=== PATIENT | male | born 1935 | race Caucasian/White ===

== ENCOUNTER 2016-04-10 13:45 | Inpatient (IN) | payer MEDICARE ==
[2016-04-10] VITALS (14 sets, daily range): BP systolic 133–149; BP diastolic 63–98; PULSE 60–128; RESP 12–16; TEMP 92.4–98.9; O2SAT 98–100
[~2016-04-10] VITALS: Ht 177.8 cm; Wt 180.0 kg
[~2016-04-10 13:45] MED LIST: ENAL5TAB PO; FURO20TA PO; SIMV40TA PO; TIMO0.5S29 EACH EYE; VITA200017 PO; WARF5TAB PO; WARF7.5T4 PO; [UNRECOGNIZED DRUG - CODE] PO
[2016-04-10] MEDS ORDERED: SUCCINYLCHOLINE CHLORIDE 200 MG/10 ML VIAL ONE (13:54)
[2016-04-10] MEDS ORDERED: ETOMIDATE 20 MG/10 ML VIAL ONE (13:54)
[2016-04-10] MEDS ORDERED: WARF4TAB52 PO (14:02)
[2016-04-10] MEDS ORDERED: SODIUM CHLOR 0.9% 1000 ML INJ 1,000 ML IV ONE ×3 (14:05→16:30)
[2016-04-10] MEDS ORDERED: ETOMIDATE 20 MG/10 ML VIAL IVP ONE (14:15)
[2016-04-10] MEDS ORDERED: SUCCINYLCHOLINE CHLORIDE 200 MG/10 ML VIAL IVP ONE (14:15)
[2016-04-10] MEDS ORDERED: SODIUM CHLORIDE 0.9% FLUSH 5 ML FLUSH IVF PRN ×2 (14:15→14:30)
[2016-04-10] MEDS ORDERED: SODIUM PHOSPHATE INJ 30 MMOL in SODIUM CHLOR 0.9% 250 ML INJ 240 ML IV PRN (14:30)
[2016-04-10] MEDS ORDERED: POTASSIUM PHOSPHATE MONOBASIC 500 MG TAB PO/TUBE PRN (14:30)
[2016-04-10] MEDS ORDERED: POTASSIUM PHOSPHATE MONOBASIC 500 MG TAB PO PRN (14:30)
[2016-04-10] MEDS ORDERED: POTASSIUM CHLOR 40 MEQ PREMIX 100 ML IV PRN ×2 (14:30)
[2016-04-10] MEDS ORDERED: RESP: ALBUTEROL 2.5 MG/IPRATROPIUM 0.5 MG NEB (PRN) INH (14:30)
[2016-04-10] MEDS ORDERED: MISCELLANEOUS NURSING INFORMATION XX SCH (14:30)
[2016-04-10] MEDS ORDERED: MAGNESIUM SULFATE INJ 4 GM in SODIUM CHLORIDE 0.9% INJ 92 ML IV PRN (14:30)
[2016-04-10] MEDS ORDERED: POTASSIUM CL 40 MEQ/30 ML LIQ UDC PO/TUBE PRN ×2 (14:30)
[2016-04-10] MEDS ORDERED: MAGNESIUM OXIDE 400 MG TAB PO PRN (14:30)
[2016-04-10] MEDS ORDERED: MAGNESIUM SULFATE INJ 2 GM in SODIUM CHLORIDE 0.9% INJ 96 ML IV PRN (14:30)
[2016-04-10] MEDS ORDERED: POTASSIUM CHLOR 20 MEQ PREMIX 100 ML IV PRN (14:30)
[2016-04-10] MEDS ORDERED: CHLORHEXIDINE GLUCONATE 2 % 1 PACK (2 CLOTHS) TOP PRN (14:30)
--- NOTE | 2016-04-10 14:34 | PD ---
HPI Chief Complaint: Code Blue Time Seen by Provider: 14:05 Travel History International Travel<30 days: No (UNABLE TO OBTAIN) Contact w/Intl Traveler<30days: No (UNABLE TO OBTAIN) Traveled to known affect area: No (UNABLE TO OBTAIN) History of Present Illness HPI 80-year-old male presents to the ER brought in by EMS status post CODE BLUE, STEMI alert called on the patient on scene. Patient has had history of cardiac issues, was eating at [employer] when he collapsed, found to be initially in V. fib, was deferred bladed on scene, and had a PEA, had 2 rounds of epi and CPR, regained pulses, and EKG showed what appeared to be ST elevations in V1 through V3. Patient was intubated with LMA on scene. Brought into intubated. On initial evaluation by me with with repeat EKG, when compared to a previous EKG on file, this does not appear to be a true ST elevation LA. Case was discussed with Dr. capellan who agreed to come see the patient and he states that the patient does not appear to have ST elevation qualification criteria. Modifying Factors: None Associated Signs & Symptoms: Coded blue, STEMI alert called on scene Risk Factors: Elderly, cardiac history PFSH Past Medical History Hx Anticoagulant Therapy: Yes (COUMADIN) Asthma: Yes Heart Rhythm Problems: Yes (IRREG HEARTBEAT/ AFIB) Cancer: No Cardiovascular Problems: Yes (A-FIB, HYPERCHOLESTEROLEMIA ) High Cholesterol: Yes Chest Pain: Yes Coronary Artery Disease: Yes Diabetes: No Diminished Hearing: No Endocrine: No Genitourinary: Yes (BPH IN 20 YRS AGO) Hepatitis: No Hiatal Hernia: No Hypertension: Yes Immune Disorder: No Musculoskeletal: Yes (ARTHRITIS) Neurologic: No Psychiatric: No Reproductive: No Respiratory: Yes (SHORTNESS OF BREATH WITH MUCH WALKING, SLEEP APNEA-USES CPAP AT NIGHT) Migraines: Yes Thyroid Disease: No Tetanus Vaccination: Unknown Influenza Vaccination: Yes (UNKNOWN IF MORE CURRENT ) PNEUMOCCOCAL Vaccine (Year): 1 Past Surgical History AICD: No Body Medical Devices: CARDIAC STENTS X 3 Cardiac Surgery: Yes ( CARDIAC STENTS 2008, CARDIAC ABLATION 11/2012) Joint Replacement: No Pacemaker: No Other Surgery: Yes Social History Alcohol Use: No (UNABLE TO ASSESS) Tobacco Use: No (UNABLE TO ASSESS) Substance Use: No (UNABLE TO ASSESS) Allergies-Medications (Allergen,Severity, Reaction): Coded Allergies: No Known Allergies (Verified , 04/10/16) Reported Meds & Prescriptions Reported Meds & Active Scripts Active Reported Warfarin 1 Mg Tab Unknown Dose PO DAILY Review of Systems Except as stated in HPI: all other systems reviewed are Neg Physical Exam Narrative GENERAL: Well-nourished, well-developed elderly white male patient who is intubated, [id number] in progress, obtunded. SKIN: Warm and dry. HEAD: Normocephalic. EYES: No scleral icterus. No injection or drainage. NECK: trachea midline. CARDIOVASCULAR: Regular rate and rhythm without murmurs, gallops, or rubs. RESPIRATORY: Breath sounds equal bilaterally. No accessory muscle use. GASTROINTESTINAL: Abdomen soft, nondistended. MUSCULOSKELETAL: No cyanosis, or edema. EXTREMITIES: No clubbing, cyanosis. Bilateral pitting edema the legs. Data Data Last Documented VS Vital Signs Date Time Temp Pulse Resp B/P Pulse Ox O2 Delivery O2 Flow Rate FiO2 04/10/16 14:15 106 16 140/63 98 Ventilator 100 04/10/16 14:00 15 04/10/16 13:45 98.9 Orders Etomidate Inj (Amidate Inj) (04/10/16 13:54) Succinylcholine Inj (Quelicin Inj) (04/10/16 13:54) Troponin I (04/10/16 14:05) Ckmb (Isoenzyme) Profile (04/10/16 14:05) Complete Blood Count With Diff (04/10/16 14:05) I-Stat Profile (04/10/16 14:05) I-Stat Creatinine (04/10/16 14:05) Calcium (04/10/16 14:05) Magnesium (Mg) (04/10/16 14:05) Prothrombin Time / Inr (Pt) (04/10/16 14:05) Act Partial Throm Time (Ptt) (04/10/16 14:05) B-Type Natriuretic Peptide (04/10/16 14:05) Chest, Single Ap (04/10/16 14:05) Electrocardiogram (04/10/16 14:05) Oxygen Administration (04/10/16 14:05) Iv Access Insert/Monitor (04/10/16 14:05) Oximetry (04/10/16 14:05) Sodium Chlor 0.9% 1000 Ml Inj (Ns 1000 M (04/10/16 14:05) Sodium Chloride 0.9% Flush (Ns Flush) (04/10/16 14:15) Arterial Blood Gas (Abg) (04/10/16 14:05) Etomidate Inj (Amidate Inj) (04/10/16 14:15) Succinylcholine Inj (Quelicin Inj) (04/10/16 14:15) Ct Brain W/O Iv Contrast(Rout) (04/10/16 ) Drug Screen, Random Urine (04/10/16 14:22) Admit Order (Ed Use Only) (04/10/16 14:22) Consult Cardiology (04/10/16 ) MDM Medical Decision Making Medical Screen Exam Complete: Yes Emergency Medical Condition: Yes Medical Record Reviewed: Yes Differential Diagnosis Status post CODE BLUE/STEMI alert called on scene Narrative Course Case was discussed with Dr. Cabrera of critical care who accepts the patient for admission. I have intubated the patient with ET tube without issues. Aggregate critical care time was 35 minutes. Time to perform other separately billable procedures was not included in the critical care time. My time did not include minutes spent treating any other patients simultaneously or on activities that did not directly contribute to the patient's treatment. The services I provided to this patient were to treat and/or prevent clinically significant deterioration that could result in: Respiratory arrest, cardiopulmonary arrest, I provided critical care services requiring my management, as noted below: Chart data review, documentation time, medication orders and management, vital sign assessments/reviewing monitor data, ordering and reviewing lab tests, ordering and interpreting/reviewing x-rays and diagnostic studies, care of the patient and discussion of the patient with the admitting physicians. Procedures Procedure Narrative the following procedure was performed for airway protection: INTUBATION: The patient was put in optimal position for the procedure. Rapid sequence intubation was initiated by me using 20 milligrams of etomidate IV and 100 milligrams of succinycholine IV. The patient was intubated with a 7.5 cuffed endotracheal tube. Tube placement was confirmed by visualization of the tube and balloon passing through the cords, capnometry and subsequent chest x- ray. Breath sounds were equal and well aerated bilaterally postintubation. No breath sounds over stomach. Patient tolerated procedure well. EKG Prior to Arrival: Yes Diagnosis Primary Impression: CARDIAC ARREST, CAUSE UNSPECIFIED Additional Impression: Endotracheally intubated Admitting Information Admitting Physician Requests: Admit Cynthia Alegre MD Apr 10, 2016 14:34
[2016-04-10 14:40] LABS: AUTOMATED NEUTROPHIL # 6.5 TH/MM3 (1.8-7.7); BASOPHIL # 0.1 TH/MM3 (0-0.2); BASOPHIL % 1.4 % (0.0-2.0); EOSINOPHIL # 0.2 TH/MM3 (0-0.4); EOSINOPHIL % 1.4 % (0.0-4.0); HEMATOCRIT 52.1 % (39.0-51.0); HEMO FLAGS DIFF FINAL; LYMPH % 23.7 % (9.0-44.0); LYMPHOCYTE # 2.5 TH/MM3 (1.0-4.8); MEAN CELL VOLUME 88.2 FL (80.0-100.0); MEAN CORPUSCULAR HEMOGLOBIN 30.5 PG (27.0-34.0); MEAN CORPUSCULAR HGB CONC 34.6 % (32.0-36.0); MONO % 11.9 % (0.0-8.0); NEUT % 61.6 % (16.0-70.0); PLATELET COUNT 303 TH/MM3 (150-450); RED BLOOD COUNT 5.91 MIL/MM3 (4.50-5.90); RED CELL DISTRIBUTION WIDTH 13.9 % (11.6-17.2); WHITE BLOOD COUNT 10.6 TH/MM3 (4.0-11.0)
[2016-04-10 14:48] LABS: APTT (PATIENT) 38.1 SEC (24.3-30.1); INTERNATIONAL NORMALIZED RATIO 2.5 RATIO; PROTHROMBIN TIME - PATIENT 28.3 SEC (9.8-11.6)
[2016-04-10] MEDS ORDERED: PROPOFOL 1000 MG/100 ML INJ 100 ML ONE (15:01)
[2016-04-10 15:04] LABS: BLOOD GAS BASE EXCESS -2.3 mmol/L (-2-2); BLOOD GAS CARBOXYHEMOGLOBIN 1.7 % (0-4); BLOOD GAS HCO3 23 mmol/L (22-26); BLOOD GAS METHEMOGLOBIN 1.9 % (0-2); BLOOD GAS O2 HGB SATURATION 94 % (90-100); BLOOD GAS OXYGEN CONTENT 24.5 Vol % (12.0-20.0); BLOOD GAS PCO2 43 mmHg (38-42); BLOOD GAS PO2 158 mmHG (61-120); BLOOD GAS TOTAL HGB 18.3 G/DL (12.0-16.0); CRITICAL VALUE NO; DRAW SITE RT RADIAL; FIO2 100 %; NUMBER OF ARTERIAL PUNCTURES 1; OXYGEN DEVICE VENTILATOR; STAT YES; TEMP CORR TO 98.6; VENT SETTINGS A/C500/12/PEEP5
[2016-04-10 15:05] LABS: CREATINE KINASE 125 U/L (39-308); MAGNESIUM 2.3 MG/DL (1.5-2.5)
--- NOTE | 2016-04-10 15:12 | RADRPT ---
EXAM DATE/TIME: 04/10/2016 14:18 [facility] COMPARISON: CHEST SINGLE AP, June 09, 2012, 10:59. INDICATIONS: Evaluate ET tube placement. MEDICAL HISTORY: None. SURGICAL HISTORY: None. ENCOUNTER: Initial ACUITY: 1 day PAIN SCORE: Non-responsive. LOCATION: Bilateral chest FINDINGS: ET tube, nasogastric tube are in good position. Patchy air space disease is seen in the left lower l obe. The right lung is clear. Heart and pulmonary vascularity are normal. CONCLUSION: 1. Support apparatus in good position. 2. Patchy air space disease in the right lower lobe. Mike Mahmood MD FACR on April 10, 2016 at 14:49 Board Certified Radiologist. This report was verified electronically.
[2016-04-10 15:17] LABS: CKMB 1.2 NG/ML (0.5-3.6)
[2016-04-10] MEDS ORDERED: ARTIFICIAL TEARS OPTH OINT 3.5 APPLIC/3.5 GM TUBO EACH EYE PRN (15:30)
[2016-04-10] MEDS ORDERED: MIDAZOLAM HCL 2 MG/2 ML VIAL IV PRN (15:30)
[2016-04-10] MEDS ORDERED: MEPERIDINE HCL 25 MG/ML VIAL IVP PRN (15:30)
[2016-04-10] MEDS ORDERED: MAGNESIUM SULFATE INJ 4 GM in SODIUM CHLOR 0.9% 250 ML INJ 242 ML IV PRN (15:30)
[2016-04-10] MEDS ORDERED: VECURONIUM BROMIDE 10 MG VIAL IV PRN (15:30)
[2016-04-10] MEDS ORDERED: LORazepam 2 MG/ML VIAL IV PRN (15:30)
[2016-04-10] MEDS: PROPOFOL 1000 MG/100 ML INJ 100 ML IV SCH ×2 (15:44→21:56)
--- NOTE | 2016-04-10 15:44 | RADRPT ---
EXAM DATE/TIME: 04/10/2016 15:15 [facility] COMPARISON: CT BRAIN W/O CONTRAST, June 09, 2012, 11:17. INDICATIONS : Altered mental status; post cardiac arrest. RADIATION DOSE: 56.35 CTDIvol (mGy) MEDICAL HISTORY : Cardiovascular disease. Hypertension. SURGICAL HISTORY : None. ENCOUNTER: Initial ACUITY: 1 day PAIN SCALE: Non-responsive LOCATION: cranial TECHNIQUE: Multiple contiguous axial images were obtained of the head. Using automated exposure control and adj ustment of the mA and/or kV according to patient size, radiation dose was kept as low as reasonably a chievable to obtain optimal diagnostic quality images. FINDINGS: CEREBRUM: The ventricles are stable. No evidence of midline shift, mass lesion, hemorrhage or acute infarction . No extra-axial fluid collections are seen. POSTERIOR FOSSA: The cerebellum and brainstem are intact. The 4th ventricle is midline. The cerebellopontine angle i s unremarkable. EXTRACRANIAL: The visualized portion of the orbits is intact. SKULL: The calvaria is intact. No evidence of skull fracture. CONCLUSION: Stable appearance of the brain without evidence of acute infarct, hemorrhage, mass or edema. Stable mild ventricular enlargement.. Aman Galarza MD on April 10, 2016 at 15:41 Board Certified Radiologist. This report was verified electronically.
[2016-04-10] MEDS ORDERED: ROCURONIUM INJ 50 MG/5 ML VIAL IV ONE (15:45)
--- NOTE | 2016-04-10 15:50 | MB ---
cc: KRIS ARRIETA DATE OF CONSULTATION: April 10, 2016 INDICATION Cardiac arrest. HISTORY OF PRESENT ILLNESS This is a 80-year-old gentleman, entire history was obtained from the outpatient medical records in addition to family members at the bedside. The patient has a history of atrial fibrillation, diastolic heart failure and follows with Dr. Mccann primarily in the outpatient setting. He also follows with Dr. Murrieta for his atrial fibrillation. He was in his usual state of health but his states that over the course of the past few days he has been complaining of some more progressive symptoms of shortness of breath. They went to a restaurant, they had just sat down at the restaurant. He complained of some shortness of breath and maybe chest discomfort and no further words were said, he slumped over and was unresponsive. EMS was called and within 5 minutes EMS arrived, they stated that initially they found a slight pulse when they first arrived, but shortly thereafter became PEA arrest. They started CPR, said it took them about 20 minutes to get a ___ rhythm. He is now in atrial fibrillation hemodynamically stable blood pressure-monge. I guess immediately following CPR had really no spontaneous movements and no gag reflex with intubation. Initial electrocardiogram showed PVCs. There was a question whether there was some ST deviation and STEMI alert was initiated on the scene. Upon arrival reevaluation, did not see that he had any acute ST-segment elevation. He saw Dr. Murrieta about 2 weeks ago. There is discussion of possible ablation. I think he was actually scheduling a right and left heart catheterization with Dr. Webb prior to that but he had not been contacted by their office yet. He is currently intubated and sedated, unresponsive. PAST MEDICAL HISTORY 1. Atrial fibrillation. 2. Atrial flutter. 3. Dyspnea. 4. Hyperlipidemia. 5. Diastolic congenital heart failure. 6. Mild to moderate mitral regurgitation. 7. Moderate tricuspid regurgitation. 8. Severe pulmonary hypertension, mild. 9. Aortic regurgitation. 10. Mild ascending aortic aneurysm. 11. Mild carotid stenosis bilaterally. ALLERGIES NO KNOWN DRUG ALLERGIES. MEDICATIONS 1. Bumex. 2. Fish oil. 3. Multivitamin. 4. Paroxetine. 5. Simvastatin. 6. Timolol. 7. Vitamin. 8. Warfarin. SOCIAL HISTORY Drinks a cup of coffee a day. Denies any alcohol or drug use according to medical records. REVIEW OF SYSTEMS Unobtainable. PHYSICAL EXAMINATION GENERAL: He is intubated, sedated, unresponsive. NECK: No jugular venous distension, although he is in supine position. CARDIOVASCULAR: Irregularly, irregular. RESPIRATORY: He has coarse rhonchi throughout. ABDOMEN: Abdominal exam is nondistended. EXTREMITIES: No clubbing, cyanosis or edema. LABORATORY DATA WBC 10.6, hemoglobin is 18, platelet count 303. All other labs are pending. Electrocardiogram shows atrial fibrillation, left axis deviation, incomplete left bundle-branch block, all that appears unchanged compared to prior. He has frequent PVCs multifocal. Poor R-wave progression may be old anterior infarct pattern. ASSESSMENT 1. Cardiac arrest, PEA. 2. History of diastolic heart failure. 3. Atrial fibrillation. 4. Respiratory arrest. PLAN At this point the biggest question will be if there is sustained neurologic insult which is irreversible. Patient is currently not moving extremities spontaneously and has no response. He recently did receive some sedation for the intubation, will have to do a general assessment as that wears off. Dr. Cabrera is also going to be involved. It was a witnessed arrest with CPR and I think he would be a likely candidate for hypothermia protocol. Will discuss that with Dr. Cabrera upon his arrival. This may be arrhythmia induced but his electrocardiogram does not suggest that he needs emergent cardiac catheterization. Upon neurologic recovery we will have to determine further ischemic workup and arrhythmia workup. For now I would hold off on any initiation of antiarrhythmics since he is not on any sustained ventricular arrhythmias to note. This may have also been some sort of respiratory driven arrest resulting in pulseless electrical activity rhythm. We will get a 2-D echocardiogram. MD LEE Zarate/SOFIA /2:48 PM /3:27 PM
--- NOTE | 2016-04-10 16:14 | PD.PROCEDR ---
Central Line Procedure REASON FOR PROCEDURE Central venous access PROCEDURE PERFORMED Central line placement: R femoral heat exchange catheter CONSENT Informed consent for procedure was obtained and time out performed. The risks and benefits of the procedure were discussed to include but limited to bleeding , clot formation, infection, and even . ANESTHESIA Local injection of 1% Lidocaine DESCRIPTION OF THE PROCEDURE The patient was placed in supine, mild Trendelenburg position. The area was exposed and cleansed with ChloraPrep, times two. Large sterile drape was used to cover the patient, with the site exposed, under sterile conditions including cap, face mask, sterile gown, and sterile gloves. The introducer needle was inserted with negative pressure in syringe and venous flash was obtained. The guide wire was then advanced without any restriction and the needle was removed. The dilator was used without any complications. Using Seldinger technique the 45 CM 9 F heat exchange catheter was advanced over the guide wire to a depth of 42 centimeters. The guide wire was removed. All ports were aspirated with dark venous blood return and flushed easily with sterile saline. All ports were capped. Antibiotic disc was placed around central line at puncture site. The central line was secured to the skin with two interrupted 2.0 silk sutures. The area was bandaged with sterile see-through central line bandage. RADIOLOGICAL DATA Ultrasound guidance was used to locate R femoral vein. Doppler/color flow was used to confirm venous flow. COMPLICATIONS: No apparent complications ESTIMATED BLOOD LOSS: Less than 1 cc. Christine Cabrera MD Apr 10, 2016 16:14
--- NOTE | 2016-04-10 16:19 | HHI.HP ---
HPI Service Critical Care Medicine Primary Care Physician Zeinab Hou MD Admission Diagnosis status post CODE BLUE Diagnosis: (1) Ventricular fibrillation Diagnosis: Principal (2) Cardiac arrest Diagnosis: Principal (3) Acute respiratory failure Diagnosis: Principal (4) Probable anoxic brain injury Diagnosis: Principal (5) Atrial fibrillation with rapid ventricular response Diagnosis: Principal (6) Aspiration pneumonitis Diagnosis: Principal (7) Coagulopathy from Coumadin Diagnosis: Principal Chief Complaint: Ventricular fibrillation arrest Travel History International Travel<30 Days: No (UNABLE TO OBTAIN) Contact w/Intl Traveler <30 Da: No (UNABLE TO OBTAIN) Traveled to Known Affected Are: No (UNABLE TO OBTAIN) Sepsis Criteria SIRS Criteria (2 or more): Heart rate over 90 History of Present Illness Patient is an 80 year-old male with past medical history significant for coronary artery disease status post stents in 2008, chronic atrial fibrillation/ flutter status post ablation by Dr. Murrieta in 2012, hypertension, diastolic heart failure, history of aortic and tricuspid regurgitation. He was brought in to the [place] ER by EMS status post CODE BLUE, and STEMI alert called on the patient on scene. He was at [employer] with his about to order food when he suddenly appeared ill, mumbled some words and collapsed. EMS arrived in less than 5 minutes and found patient to be in ventricular fibrillation, he was immediately defibrillated and patient went into PEA. ACLS protocol was followed and it took approximately 20 minutes from the beginning of CPR to gain spontaneous circulation. Patient remained comatose after ROSC and was intubated with LMA on scene. Endotracheally intubated in ER. Case was discussed with Dr. Capellan he did not think patient meets STEMI criteria. EKG showed incomplete left bundle branch block and frequent PVCs. Cardiac enzymes are pending at this time. I was contacted for admission and consideration of induced hypothermia I evaluated the patient in the ED. Patient had received 20 mg of IV etomidate and 100 mg of succinylcholine at 2:01 PM, I examined him at 2:50 PM approximately 45 minutes after these medications were given. Patient is spontaneously breathing above the vent even though comatose. Pupils are 5 mm briskly reactive bilaterally. Patient has no purposeful movements but he does slightly withdraw bilateral upper extremities to central pain. In discussion with Dr. capellan and family (patient's and son), decision was made to place patient on induced hypothermia for neuro protection after cardiac arrest. Patient was emergently moved to the CAT scan, CT of the head was found to be negative, he was then moved to the ICU and I placed the right femoral heat exchange catheter. Patient will be emergently started on induced hypothermia protocol Review of Systems ROS Limitations: Intubated, Unresponsive Past Family Social History Allergies: Coded Allergies: No Known Allergies (Verified , 04/10/16) Past Medical History Chronic atrial fibrillation/flutter Hyperlipidemia. Chronic diastolic heart failure Moderate tricuspid regurgitation. Pulmonary hypertension Aortic regurgitation. Bilateral carotid stenosis Mild ascending aortic aneurysm Past Surgical History PCI with stent in 2008 A. fib ablation in 2013 Reported Medications Bumex. Fish oil. Multivitamin. Paroxetine. Simvastatin. Timolol. Vitamin. Warfarin. Active Ordered Medications Reviewed Family History Not contributing Social History No alcohol or tobacco use Physical Exam Vital Signs Vital Signs Date Time Temp Pulse Resp B/P Pulse Ox O2 Delivery O2 Flow Rate FiO2 04/10/16 15:25 118 12 139/96 99 15 100 04/10/16 15:15 123 12 133/92 99 15 100 04/10/16 14:30 96 12 139/70 98 Ventilator 100 04/10/16 14:15 106 12 140/63 98 Ventilator 100 04/10/16 14:07 100 100 04/10/16 14:05 112 12 145/81 98 Ventilator 100 04/10/16 14:03 100 04/10/16 14:00 128 16 147/92 98 15 04/10/16 13:45 98.9 119 16 134/98 98 04/10/16 13:45 119 16 134/98 98 15 04/10/16 13:45 98 Bag Valve 15 04/10/16 13:45 119 16 98 Bag Valve Physical Exam GENERAL: Well-nourished, well-developed elderly white male patient who is intubated, not on any sedation unresponsive Comatose SKIN: Warm and dry. HEAD: Normocephalic. EYES: Pupils are 5 mm but briskly reactive and contracts to 2 mm ENT: Oral mucosa is dry. Orotracheally intubated NECK: trachea midline. CARDIOVASCULAR: Patient remains in atrial fibrillation with RVR, frequent PVCs. No murmurs or RESPIRATORY: Breath sounds equal bilaterally. No wheezes or crackles GASTROINTESTINAL: Abdomen soft, nondistended. MUSCULOSKELETAL: 2+ edema of the extremities NEURO: (Exam performed at 2:50 PM. Patient received 20 mg etomidate IV and 100 mg succinylcholine IV at 2:01 PM) Patient remains unresponsive, spontaneously breathing about the vent, positive gag Pupils are equal 5 mm reactive contracts to 2 mm briskly On deep central pain, slightly withdraws bilateral upper extremities very slightly withdraws lower extremities Plantar reflexes cannot be elicited Laboratory Laboratory Tests Test 04/10/16 04/10/16 14:20 14:53 White Blood Count 10.6 Red Blood Count 5.91 Hemoglobin 18.0 Hematocrit 52.1 Mean Corpuscular Volume 88.2 Mean Corpuscular Hemoglobin 30.5 Mean Corpuscular Hemoglobin 34.6 Concent Red Cell Distribution Width 13.9 Platelet Count 303 Mean Platelet Volume 9.7 Neutrophils (%) (Auto) 61.6 Lymphocytes (%) (Auto) 23.7 Monocytes (%) (Auto) 11.9 Eosinophils (%) (Auto) 1.4 Basophils (%) (Auto) 1.4 Neutrophils # (Auto) 6.5 Lymphocytes # (Auto) 2.5 Monocytes # (Auto) 1.3 Eosinophils # (Auto) 0.2 Basophils # (Auto) 0.1 CBC Comment DIFF FINAL Differential Comment Prothrombin Time 28.3 Prothromb Time International 2.5 Ratio Activated Partial 38.1 Thromboplast Time Calcium Level 9.0 Magnesium Level 2.3 Total Creatine Kinase 125 Creatine Kinase MB 1.2 Troponin I 0.07 B-Type Natriuretic Peptide 161 Blood Gas Puncture Site RT RADIAL Blood Gas Patient Temperature 98.6 Blood Gas HCO3 23 Blood Gas Base Excess -2.3 Blood Gas Oxygen Saturation 94 Arterial Blood pH 7.34 Arterial Blood Partial 43 Pressure CO2 Arterial Blood Partial 158 Pressure O2 Arterial Blood Oxygen Content 24.5 Arterial Blood 1.7 Carboxyhemoglobin Arterial Blood Methemoglobin 1.9 Blood Gas Hemoglobin 18.3 Oxygen Delivery Device VENTILATOR Blood Gas Ventilator Setting A/C500/12/PEEP5 Blood Gas Inspired Oxygen 100 Result Diagram: 04/10/[address] of the head no acute bleed Chest x-ray shows bibasilar infiltrates Assessment and Plan Assessment and Plan Assessment and plan NEURO: Possible anoxic brain injury following cardiac arrest -Apparently this is a witnessed V. fib arrest, patient has good pupillary reflex and some withdrawal of the upper extremity to pain -Initiated induced hypothermia per protocol. Discussed with family -Propofol for sedation along with when necessary fentanyl and when necessary neuromuscular blockade with vecuronium RESP: Acute respiratory failure from failure to protect airway Aspiration pneumonitis History of obstructive sleep apnea -Assist control mechanical ventilation, 16/600/5/50% -DuoNeb every 6 hours when necessary, ventilator bundle -Empiric Zosyn for probable aspiration pneumonitis -No ventilatory weaning attempts until hypothermia protocol is completed CV: Witnessed V FIB arrest followed by PEA Atrial fibrillation with RVR History of CAD with stents Hx of atrial fibrillation ablation -Witnessed V. fib arrest followed by PEA following defibrillation -Cardiology consulted Dr. Capellan.unlikely to be a STEMI -Cardiac enzymes are pending at this time. Start aspirin 81 mg daily -No indication for heparin as the patient is coagulopathic on Coumadin -Troponin, 2-D echo pending at this time -Normal saline IV fluids 2 L bolus and 84 ml per hour -Started on induced hypothermia protocol for neuro protection GI: -Nothing by mouth except meds. IV Protonix for GI prophylaxis : -Monitor renal function closely. Place Lira catheter. ID: Aspiration pneumonitis -Check sputum and blood culture -Empirically treated with Zosyn 3.375 g every 6 hours HEME: Chronic Coumadin use -Monitor CBC CMP INR -Watch closely for bleeding when on hypothermia protocol ENDO: -Electrolyte replacement per protocol -Sliding-scale insulin PROPH: -Bilateral lower extremity SCDs. INR supratherapeutic. Protonix 40 mg IV daily LINES: -Heat exchange catheter placed right femoral vein CC time 90 min excluding procedures Code Status Full Code Discussed Condition With Dr. Dee Dee Palm Sinoj K. MD Apr 10, 2016 16:19 Christine Cabrera MD Apr 10, 2016 16:[address] Dee Dee Palm Sinoj K. MD Apr 10, 2016 16:19
[2016-04-10] MEDS ORDERED: ENOXAPARIN SODIUM 40 MG/0.4 ML SYRINGE SQ SCH (17:00)
[2016-04-10] MEDS ORDERED: NOREPINEPHRINE INJ 4 MG in SODIUM CHLOR 0.9% 250 ML INJ 246 ML IV SCH (17:00)
[2016-04-10] MEDS ORDERED: EPINEPHrine HCL (1:1000) 1 MG/ML VIAL ONE (17:15)
[2016-04-10] MEDS: SODIUM CHLOR 0.9% 1000 ML INJ 1,000 ML IV SCH (17:23)
[2016-04-10] MEDS: ASPIRIN 81 MG CHEW TAB CHEW SCH (17:25)
[2016-04-10] MEDS: PIPERACIL-TAZO 3.375 GM PREMIX 50 ML IV SCH ×2 (17:25→21:55)
[2016-04-10 18:05] LABS: AMPHETAMINE, URINE NEG (NEG); BARBITURATES, URINE NEG (NEG); COCAINE, URINE NEG (NEG)
[2016-04-10 18:15] LABS: AUTOMATED NEUTROPHIL # 13.5 TH/MM3 (1.8-7.7); BASOPHIL # 0.1 TH/MM3 (0-0.2); BASOPHIL % 0.4 % (0.0-2.0); EOSINOPHIL % 0.1 % (0.0-4.0); HEMATOCRIT 48.5 % (39.0-51.0); HEMO FLAGS DIFF FINAL; LYMPH % 3.9 % (9.0-44.0); LYMPHOCYTE # 0.6 TH/MM3 (1.0-4.8); MEAN CELL VOLUME 89.1 FL (80.0-100.0); MEAN CORPUSCULAR HEMOGLOBIN 30.5 PG (27.0-34.0); MEAN CORPUSCULAR HGB CONC 34.3 % (32.0-36.0); MONO % 8.3 % (0.0-8.0); NEUT % 87.3 % (16.0-70.0); PLATELET COUNT 236 TH/MM3 (150-450); RED BLOOD COUNT 5.44 MIL/MM3 (4.50-5.90); RED CELL DISTRIBUTION WIDTH 14.1 % (11.6-17.2); WHITE BLOOD COUNT 15.5 TH/MM3 (4.0-11.0)
[2016-04-10 18:24] LABS: APTT (PATIENT) 40.2 SEC (24.3-30.1); INTERNATIONAL NORMALIZED RATIO 2.9 RATIO; PROTHROMBIN TIME - PATIENT 33.3 SEC (9.8-11.6)
[2016-04-10 19:01] LABS: AST (GOT) 54 U/L (15-37); CHLORIDE 102 MEQ/L (98-107); GLOMERULAR FILTRATION RATE 46 ML/MIN (>89); POTASSIUM 3.9 MEQ/L (3.5-5.1); SODIUM (NA) 140 MEQ/L (136-145)
[2016-04-10 19:06] LABS: ALKALINE PHOSPHATASE 55 U/L (45-117); ALT (GPT) 58 U/L (12-78); TOTAL BILIRUBIN ADULT 0.7 MG/DL (0.2-1.0)
[2016-04-10 19:12] LABS: BLOOD UREA NITROGEN 17 MG/DL (7-18); MAGNESIUM 1.9 MG/DL (1.5-2.5)
[2016-04-10 20:15] LABS: ANION GAP 13 MEQ/L (5-15); BICARBONATE 25.1 MEQ/L (21.0-32.0)
[2016-04-10] MEDS ORDERED: SODIUM CHLORIDE 0.9% FLUSH 5 ML FLUSH IVF SCH (21:00)
[2016-04-10] MEDS: CHLORHEXIDINE 0.12% (ORAL KIT) 15 ML CUP MT SCH (21:56)
[2016-04-10] MEDS: SODIUM CHLORIDE 0.9% FLUSH 5 ML FLUSH IVF SCH (21:56)
[2016-04-10] MEDS: SODIUM CHLORIDE 0.9% FLUSH 5 ML FLUSH IVF PRN (21:57)
[2016-04-10] MEDS ORDERED: DOPamine INJ PREMIX 500 ML ONE (22:43)
[2016-04-10] MEDS ORDERED: DOPamine 800 MG/D5W PREMIX 500 ML IV SCH (23:00)
[2016-04-10 23:09] LABS: MAGNESIUM 1.8 MG/DL (1.5-2.5)
[2016-04-11] VITALS (19 sets, daily range): BP systolic 103–161; BP diastolic 52–72; PULSE 58–72; RESP 16; TEMP 91.5; O2SAT 97–100
[2016-04-11] MEDS: POTASSIUM PHOSPHATE INJ 30 MMOL in SODIUM CHLOR 0.9% 250 ML INJ 250 ML IV PRN ×2 (00:03→13:38)
[2016-04-11] MEDS: CISATRACURIUM 100 MG/NS 250 ML IV SCH ×6 (00:04→21:17)
[2016-04-11] MEDS: PROPOFOL 1000 MG/100 ML INJ 100 ML IV SCH ×9 (00:42→23:17)
[2016-04-11] MEDS: RESP: ALBUTEROL 2.5 MG/IPRATROPIUM 0.5 MG NEB (SCH) NEB ×4 (04:11→20:40)
[2016-04-11] MEDS: SODIUM CHLOR 0.9% 1000 ML INJ 1,000 ML IV SCH ×2 (04:31→17:04)
[2016-04-11] MEDS: CHLORHEXIDINE GLUCONATE 2 % 1 PACK (2 CLOTHS) TOP SCH (04:31)
[2016-04-11] MEDS: PIPERACIL-TAZO 3.375 GM PREMIX 50 ML IV SCH ×4 (05:06→23:30)
[2016-04-11 06:42] LABS: AUTOMATED NEUTROPHIL # 10.7 TH/MM3 (1.8-7.7); BASOPHIL # 0.1 TH/MM3 (0-0.2); BASOPHIL % 0.5 % (0.0-2.0); EOSINOPHIL % 0.1 % (0.0-4.0); HEMATOCRIT 46.5 % (39.0-51.0); HEMO FLAGS DIFF FINAL; LYMPHOCYTE # 0.5 TH/MM3 (1.0-4.8); MEAN CELL VOLUME 87.9 FL (80.0-100.0); MEAN CORPUSCULAR HEMOGLOBIN 30.8 PG (27.0-34.0); MONO % 6.9 % (0.0-8.0); NEUT % 88.5 % (16.0-70.0); PLATELET COUNT 210 TH/MM3 (150-450); RED BLOOD COUNT 5.29 MIL/MM3 (4.50-5.90); WHITE BLOOD COUNT 12.1 TH/MM3 (4.0-11.0)
[2016-04-11 07:02] LABS: INTERNATIONAL NORMALIZED RATIO 3.2 RATIO; PROTHROMBIN TIME - PATIENT 36.8 SEC (9.8-11.6)
[2016-04-11 07:11] LABS: ALKALINE PHOSPHATASE 46 U/L (45-117); ALT (GPT) 48 U/L (12-78); ANION GAP 8 MEQ/L (5-15); AST (GOT) 38 U/L (15-37); BICARBONATE 23.8 MEQ/L (21.0-32.0); BLOOD UREA NITROGEN 13 MG/DL (7-18); CHLORIDE 110 MEQ/L (98-107); GLOMERULAR FILTRATION RATE 81 ML/MIN (>89); POTASSIUM 3.6 MEQ/L (3.5-5.1); SODIUM (NA) 142 MEQ/L (136-145); TOTAL BILIRUBIN ADULT 0.6 MG/DL (0.2-1.0)
[2016-04-11] MEDS: ASPIRIN 81 MG CHEW TAB CHEW SCH (07:39)
[2016-04-11] MEDS: SODIUM CHLORIDE 0.9% FLUSH 5 ML FLUSH IVF PRN ×2 (07:39→20:51)
[2016-04-11] MEDS: CHLORHEXIDINE 0.12% (ORAL KIT) 15 ML CUP MT SCH ×2 (07:39→20:50)
[2016-04-11] MEDS: PANTOPRAZOLE SODIUM 40 MG VIAL IV SCH (07:39)
[2016-04-11] MEDS: SODIUM CHLORIDE 0.9% FLUSH 5 ML FLUSH IVF SCH ×2 (07:39→20:51)
--- NOTE | 2016-04-11 08:08 | EC ---
Study Study Date:04/10/2016 STUDY CONCLUSIONS SUMMARY - Left ventricle: The cavity size was normal. Wall thickness was increased in a pattern of mild LVH. Systolic function was moderately to severely reduced by visual assessment. The estimated ejection fraction was in the range of 30% to 35%. Diffuse hypokinesis. - Aortic valve: Mild regurgitation. - Mitral valve: Calcified annulus. - Right atrium: The atrium was mildly dilated. - Tricuspid valve: Mild regurgitation. - Pulmonary arteries: Systolic pressure was severely increased. PA peak pressure: 67mm Hg (S). If LV function is below 40, please consider prescribing an ACEI or ARB or document rationale for non-use. PROCEDURE DATA STUDY STATUS: Elective. Procedure: Transthoracic echocardiography. Image quality was good. Scanning was performed from the parasternal, apical, and subcostal acoustic windows. Study completion: The patient tolerated the procedure well. Transthoracic echocardiography. M-mode, complete 2D, complete spectral Doppler, and color Doppler. Patient status: Inpatient. CARDIAC ANATOMY LEFT VENTRICLE: Not well visualized. The cavity size was normal. Wall thickness was increased in a pattern of mild LVH. Systolic function was moderately to severely reduced by visual assessment. The estimated ejection fraction was in the range of 30% to 35%. Diffuse hypokinesis. AORTIC VALVE: Trileaflet; mildly thickened, moderately calcified leaflets. Doppler: Transvalvular velocity was within the normal range. There was no stenosis. Mild regurgitation. AORTA: Aortic root: The aortic root was poorly visualized and mildly dilated. MITRAL VALVE: Calcified annulus. Doppler: Transvalvular velocity was within the normal range. There was no evidence for stenosis. Trace to mild regurgitation. Peak gradient: 4mm Hg (D). LEFT ATRIUM: The atrium was normal in size. RIGHT VENTRICLE: The cavity size was normal. Wall thickness was normal. PULMONIC VALVE: Doppler: Transvalvular velocity was within the normal range. There was no evidence for stenosis. No regurgitation. TRICUSPID VALVE: Structurally normal valve. Doppler: Transvalvular velocity was within the normal range. Mild regurgitation. PULMONARY ARTERY: Systolic pressure was severely increased. RIGHT ATRIUM: The atrium was mildly dilated. PERICARDIUM: There was no pericardial effusion. SYSTEMIC VEINS: Inferior vena cava: The vessel was normal in size. BASIC MEASUREMENTS ADULT Normal Left ventricle LV internal dimension, ED, chordal level, 46.9 mm 43-52 PLAX LV internal dimension, ES, chordal level, *44.7 mm 23-38 PLAX Fractional shortening, chordal level, PLAX *5 % >29 LV posterior wall thickness, ED 9.3 mm IVS/LVPW ratio, ED 1.29 <1.3 Volume, ED, MOD, 1-plane 160 ml Volume, ES, MOD, 1-plane 127 ml Ejection fraction, MOD, 1-plane 21 % Stroke volume, MOD, 1-plane 33 ml Ventricular septum Septal thickness, ED 12 mm Aortic valve Leaflet separation 18 mm 15-26 Left atrium Anterior-posterior dimension 30 mm Right ventricle RV internal dimension, ED, PLAX 33.2 mm 19-38 BASIC MEASUREMENTS ADULT Normal Aortic valve Leaflet separation 18 mm 15-26 Aorta Root diameter, ED *42 mm 20-37 DOPPLER MEASUREMENTS ADULT Normal Main pulmonary artery Pressure, S *67 mm Hg =30 Mitral valve Peak E-wave velocity 99.8 cm/s Peak gradient, D 4 mm Hg Tricuspid valve Regurgitant peak velocity 379 cm/s Peak RV-RA gradient, S 57 mm Hg Maximal regurgitant velocity 379 cm/s Systemic veins Estimated CVP 10 mm Hg Right ventricle RV pressure, S *67 mm Hg <30 LEGEND: Mean values are shown as u=mean value. Asterisk (*) dumont values outside specified normal range. Prepared and signed by Celestino Encarnacion [id number]
--- NOTE | 2016-04-11 08:24 | PD.CARD.PN ---
Subjective Subjective Remarks intubated, sedated and mechanically ventilated (Kinga Melchor) Objective Medications Current Medications Medications (Trade) Dose Ordered Sig/Stephanie Route Start Time Stop Time Status Last Admin (NS 1000 ml Inj) 1,000 ml @ 75 mls/hr [id number] IV 04/10/16 14:24 04/11/16 04:31 (Tylenol) 650 mg Q6H PRN PO 04/10/16 14:30 (Peridex 0.12% Liq) 15 ml BID@08,20 MT 04/10/16 20:00 04/11/16 07:39 (Protonix Inj) 40 mg DAILY IV 04/11/16 09:00 04/11/16 07:39 Miscellaneous Information 1 [id number] XX 04/10/16 14:30 04/10/16 14:30 (Chlorhexidine 2% Cloth) 3 pack Taper DAILY@04 TOP 04/11/16 04:00 04/07/17 03:59 04/11/16 04:31 Chlorhexidine Gluconate 3 pack 3 pack UNSCH PRN TOP 04/10/16 14:30 Potassium Chloride 100 ml @ 50 mls/hr Q2H PRN IV 04/10/16 14:30 (KCl 20 Meq Premix Inj) 100 ml @ 50 mls/hr Q2H PRN IV 04/10/16 14:30 Potassium Chloride 40 meq 40 meq UNSCH PRN PO/TUBE 04/10/16 14:30 Potassium Chloride 100 ml @ 25 mls/hr UNSCH PRN IV 04/10/16 14:30 Potassium Chloride 100 ml @ 50 mls/hr Q2H PRN IV 04/10/16 14:30 (Magnesium Sulfate Inj/NS Inj) 100 ml @ 50 mls/hr UNSCH PRN IV 04/10/16 14:30 Magnesium Oxide 800 mg 800 mg UNSCH PRN PO 04/10/16 14:30 (Magnesium Sulfate Inj/NS Inj) 100 ml @ 50 mls/hr UNSCH PRN IV 04/10/16 14:30 Potassium Phosphate 2000 mg 2,000 mg Q4H PRN PO 04/10/16 14:30 (Sodium Phosphate Inj/NS 250 ml Inj) 250 ml @ 42 mls/hr UNSCH PRN IV 04/10/16 14:30 (KCl 40 Meq/30 ml Liq) 40 meq UNSCH PRN PO/TUBE 04/10/16 14:30 Potassium Phosphate 2000 mg 2,000 mg UNSCH PRN PO/TUBE 04/10/16 14:30 Potassium Phosphate 30 mmol/ Sodium Chloride 260 ml @ 42 mls/hr UNSCH PRN IV 04/10/16 14:30 04/11/16 00:03 (Diprivan 1000 Mg/100ml Inj) 100 ml @ 0 mls/hr TITRATE IV 04/10/16 15:15 04/11/16 05:06 (Ativan Inj) 1 mg Q1H PRN IV 04/10/16 15:30 (Versed Inj) 2 mg Q1H PRN IV 04/10/16 15:30 (fentaNYL INJ) 50 mcg Q1H PRN IV 04/10/16 15:30 Meperidine HCl 25 mg 25 mg Q2H PRN IVP 04/10/16 15:30 04/10/16 17:35 (Magnesium Sulfate Inj/NS 250 ml Inj) 250 ml @ 62.5 mls/hr Q4H PRN IV 04/10/16 15:30 (Norcuron 10 Mg Inj) 7 mg Q1H PRN IV 04/10/16 15:30 04/10/16 17:55 (Lacrilube Opht Oint) 1 applic Q4H PRN EACH EYE 04/10/16 15:30 (NS Flush) 2 ml BID IVF 04/10/16 21:00 04/11/16 07:39 IV Flush 2 ml 2 ml UNSCH PRN IVF 04/10/16 15:30 04/11/16 07:39 Miscellaneous Information 0 ml @ 0 mls/hr UNSCH IV 04/10/16 15:30 Norepinephrine Bitartrate 4 mg/ Sodium Chloride 250 ml @ 0 mls/hr TITRATE IV 04/10/16 17:00 04/11/16 07:39 (Zosyn 3.375 Gm Premix) 50 ml @ 100 mls/hr Q6H IV 04/10/16 17:00 04/11/16 05:06 Aspirin 81 mg 81 mg DAILY CHEW 04/10/16 16:45 04/11/16 07:39 Cisatracurium Besylate 100 mg/ Sodium Chloride 250 ml @ 0 mls/hr TITRATE IV 2/1/17 18:30 04/11/16 00:04 (DOPamine INJ PREMIX) 500 ml @ 0 mls/hr TITRATE IV 04/10/16 23:00 Vital Signs / I&O Vital Signs Date Time Temp Pulse Resp B/P Pulse Ox O2 Delivery O2 Flow Rate FiO2 04/11/16 06:00 63 04/11/16 04:15 63 04/11/16 04:13 99 60 04/11/16 04:00 60 04/11/16 04:00 91.5 62 16 103/56 99 04/11/16 02:00 63 04/11/16 01:13 97 60 04/11/16 00:00 72 04/11/16 00:00 91.5 72 16 150/67 97 04/11/16 00:00 60 04/10/16 22:30 60 04/10/16 22:12 100 80 04/10/16 22:00 60 04/10/16 21:00 80 04/10/16 20:05 100 100 04/10/16 20:00 92.4 67 16 149/77 100 04/10/16 20:00 92 04/10/16 20:00 100 04/10/16 18:20 16 04/10/16 16:59 100 100 04/10/16 15:25 118 12 139/96 99 15 100 04/10/16 15:15 123 12 133/92 99 15 100 04/10/16 14:35 100 100 04/10/16 14:30 96 12 139/70 98 Ventilator 100 04/10/16 14:15 106 12 140/63 98 Ventilator 100 04/10/16 14:07 100 100 04/10/16 14:05 112 12 145/81 98 Ventilator 100 04/10/16 14:03 100 04/10/16 14:00 128 16 147/92 98 15 04/10/16 13:45 98.9 119 16 134/98 98 04/10/16 13:45 119 16 134/98 98 15 04/10/16 13:45 98 Bag Valve 15 04/10/16 13:45 119 16 98 Bag Valve I/O 04/10/16 04/10/16 04/10/16 04/11/16 04/11/16 04/11/16 07:00 15:00 23:00 07:00 15:00 23:00 Intake Total 3907 ml 1360 ml Output Total 885 ml 2975 ml 225 ml Balance 3022 ml -1615 ml -225 ml Intake Oral 0 ml IV Total 3907 ml 1360 ml Other 0 ml Output Urine Total 885 ml 2975 ml 225 ml Stool Total 0 ml Gastric Drainage Total 0 ml 0 ml Physical Exam GENERAL: unresponsive, intubated and mechanically ventilated SKIN: Warm and dry. HEAD: Atraumatic. Normocephalic. ENT: No nasal bleeding or discharge. NECK: Trachea midline. No JVD. CARDIOVASCULAR: Regular rate and rhythm. No murmurs RESPIRATORY: No accessory muscle use. Clear to auscultation. Breath sounds equal bilaterally. mechanically ventilated GASTROINTESTINAL: Abdomen soft, non-tender, nondistended. MUSCULOSKELETAL: Extremities without clubbing, cyanosis, or edema. No obvious deformities. Laboratory Laboratory Tests Test 04/10/16 04/10/16 04/10/16 04/10/16 14:20 14:53 16:00 17:02 White Blood Count 10.6 TH/MM3 Red Blood Count 5.91 MIL/MM3 Hemoglobin 18.0 GM/DL Hematocrit 52.1 % Mean Corpuscular Volume 88.2 FL Mean Corpuscular Hemoglobin 30.5 PG Mean Corpuscular Hemoglobin 34.6 % Concent Red Cell Distribution Width 13.9 % Platelet Count 303 TH/MM3 Mean Platelet Volume 9.7 FL Neutrophils (%) (Auto) 61.6 % Lymphocytes (%) (Auto) 23.7 % Monocytes (%) (Auto) 11.9 % Eosinophils (%) (Auto) 1.4 % Basophils (%) (Auto) 1.4 % Neutrophils # (Auto) 6.5 TH/MM3 Lymphocytes # (Auto) 2.5 TH/MM3 Monocytes # (Auto) 1.3 TH/MM3 Eosinophils # (Auto) 0.2 TH/MM3 Basophils # (Auto) 0.1 TH/MM3 CBC Comment DIFF FINAL Differential Comment Prothrombin Time 28.3 SEC Prothromb Time International 2.5 RATIO Ratio Activated Partial 38.1 SEC Thromboplast Time Calcium Level 9.0 MG/DL Magnesium Level 2.3 MG/DL Total Creatine Kinase 125 U/L Creatine Kinase MB 1.2 NG/ML Troponin I 0.07 NG/ML B-Type Natriuretic Peptide 161 PG/ML Blood Gas Puncture Site RT RADIAL Blood Gas Patient Temperature 98.6 Blood Gas HCO3 23 mmol/L Blood Gas Base Excess -2.3 mmol/L Blood Gas Oxygen Saturation 94 % Arterial Blood pH 7.34 Arterial Blood Partial 43 mmHg Pressure CO2 Arterial Blood Partial 158 mmHG Pressure O2 Arterial Blood Oxygen Content 24.5 Vol % Arterial Blood 1.7 % Carboxyhemoglobin Arterial Blood Methemoglobin 1.9 % Blood Gas Hemoglobin 18.3 G/DL Oxygen Delivery Device VENTILATOR Blood Gas Ventilator Setting A/C500/12/PEEP5 Blood Gas Inspired Oxygen 100 % Nasal Screen MRSA (PCR) NEGATIVE Blood Type O POSITIVE Antibody Screen NEGATIVE Blood Bank Comment Test 04/10/16 04/10/16 04/10/16 04/10/16 17:04 17:07 17:37 21:50 Lactic Acid Level 3.7 mmol/L Urine Opiates Screen NEG Urine Barbiturates Screen NEG Urine Amphetamines Screen NEG Urine Benzodiazepines Screen NEG Urine Cocaine Screen NEG Urine Cannabinoids Screen NEG White Blood Count 15.5 TH/MM3 Red Blood Count 5.44 MIL/MM3 Hemoglobin 16.6 GM/DL Hematocrit 48.5 % Mean Corpuscular Volume 89.1 FL Mean Corpuscular Hemoglobin 30.5 PG Mean Corpuscular Hemoglobin 34.3 % Concent Red Cell Distribution Width 14.1 % Platelet Count 236 TH/MM3 Mean Platelet Volume 9.2 FL Neutrophils (%) (Auto) 87.3 % Lymphocytes (%) (Auto) 3.9 % Monocytes (%) (Auto) 8.3 % Eosinophils (%) (Auto) 0.1 % Basophils (%) (Auto) 0.4 % Neutrophils # (Auto) 13.5 TH/MM3 Lymphocytes # (Auto) 0.6 TH/MM3 Monocytes # (Auto) 1.3 TH/MM3 Eosinophils # (Auto) 0.0 TH/MM3 Basophils # (Auto) 0.1 TH/MM3 CBC Comment DIFF FINAL Differential Comment Prothrombin Time 33.3 SEC Prothromb Time International 2.9 RATIO Ratio Activated Partial 40.2 SEC Thromboplast Time Sodium Level 140 MEQ/L Potassium Level 3.9 MEQ/L Chloride Level 102 MEQ/L Carbon Dioxide Level 25.1 MEQ/L Anion Gap 13 MEQ/L Blood Urea Nitrogen 17 MG/DL Creatinine 1.47 MG/DL Estimat Glomerular Filtration 46 ML/MIN Rate Random Glucose 173 MG/DL Calcium Level 8.3 MG/DL Phosphorus Level 3.6 MG/DL 1.9 MG/DL Magnesium Level 1.9 MG/DL 1.8 MG/DL Total Bilirubin 0.7 MG/DL Aspartate Amino Transf 54 U/L (AST/SGOT) Alanine Aminotransferase 58 U/L (ALT/SGPT) Alkaline Phosphatase 55 U/L Troponin I 1.24 NG/ML 1.35 NG/ML Total Protein 7.3 GM/DL Albumin 3.8 GM/DL Test 04/11/16 06:20 White Blood Count 12.1 TH/MM3 Red Blood Count 5.29 MIL/MM3 Hemoglobin 16.3 GM/DL Hematocrit 46.5 % Mean Corpuscular Volume 87.9 FL Mean Corpuscular Hemoglobin 30.8 PG Mean Corpuscular Hemoglobin 35.0 % Concent Red Cell Distribution Width 14.0 % Platelet Count 210 TH/MM3 Mean Platelet Volume 8.9 FL Neutrophils (%) (Auto) 88.5 % Lymphocytes (%) (Auto) 4.0 % Monocytes (%) (Auto) 6.9 % Eosinophils (%) (Auto) 0.1 % Basophils (%) (Auto) 0.5 % Neutrophils # (Auto) 10.7 TH/MM3 Lymphocytes # (Auto) 0.5 TH/MM3 Monocytes # (Auto) 0.8 TH/MM3 Eosinophils # (Auto) 0.0 TH/MM3 Basophils # (Auto) 0.1 TH/MM3 CBC Comment DIFF FINAL Differential Comment Prothrombin Time 36.8 SEC Prothromb Time International 3.2 RATIO Ratio Sodium Level 142 MEQ/L Potassium Level 3.6 MEQ/L Chloride Level 110 MEQ/L Carbon Dioxide Level 23.8 MEQ/L Anion Gap 8 MEQ/L Blood Urea Nitrogen 13 MG/DL Creatinine 0.90 MG/DL Estimat Glomerular Filtration 81 ML/MIN Rate Random Glucose 155 MG/DL Calcium Level 7.7 MG/DL Total Bilirubin 0.6 MG/DL Aspartate Amino Transf 38 U/L (AST/SGOT) Alanine Aminotransferase 48 U/L (ALT/SGPT) Alkaline Phosphatase 46 U/L Total Protein 6.8 GM/DL Albumin 3.3 GM/DL Imaging Last 24 hours Impressions Chest X-Ray 04/10/16 1405 Signed Impressions: Service Date/Time: Sunday, April 10, 2016 14:18 - CONCLUSION: 1. Support apparatus in good position. 2. Patchy air space disease in the right lower lobe. Mike Mahmood MD FACR (Kinga Melchor) Assessment and Plan Problem List: (1) Cardiac arrest (2) Ventricular fibrillation (3) Atrial fibrillation with rapid ventricular response Assessment and Plan 80 yo WM with hx of CAD with stents in 2008, chronic afib s/p ablation, diastolic heart failure, severe pHTN, aortic and tricuspid regurgitation s/p cardiac arrest yesterday at a restaurant. Consider ischemic and arrhythmia workup upon neurological recovery. Currently intubated and unresponsive, induced hypothermia for neuroprotection. CT head neg. Troponins elevated yesterday (1.24 / 1.35) tele reviewed, NSR. Echo: reduced EF 30-35%, diffuse hypokinesis, PA pressure 67 mmHg (Kinga Melchor) Assessment and Plan await for completion of hypothermia protocol and reassess neurological status then we will decide further cardiac workup (Celestino Encarnacion MD) Kinga Melchor Apr 11, 2016 08:24 Celestino Encarnacion MD Apr 11, 2016 10:55
--- NOTE | 2016-04-11 08:31 | HHI.CCPN ---
Subjective Remarks/Hospital Course Patient is an 80 year-old male with past medical history significant for coronary artery disease status post stents in 2008, chronic atrial fibrillation/ flutter status post ablation by Dr. Murrieta in 2012, hypertension, diastolic heart failure, history of aortic and tricuspid regurgitation. He was brought in to the [place] ER by EMS status post CODE BLUE, and STEMI alert called on the patient on scene. He was at [employer] [facility] with his about to order food when he suddenly appeared ill, mumbled some words and collapsed. EMS arrived in less than 5 minutes and found patient to be in ventricular fibrillation, he was immediately defibrillated and patient went into PEA. ACLS protocol was followed and it took approximately 20 minutes from the beginning of CPR to gain spontaneous circulation. Patient remained comatose after ROSC and was intubated with LMA on scene. Endotracheally intubated in ER. Case was discussed with Dr. Capellan he did not think patient meets STEMI criteria. EKG showed incomplete left bundle branch block and frequent PVCs. Cardiac enzymes are pending at this time. I was contacted for admission and consideration of induced hypothermia. I evaluated the patient in the ED. Patient had received 20 mg of IV etomidate and 100 mg of succinylcholine at 2:01 PM, I examined him at 2:50 PM approximately 45 minutes after these medications were given. Patient is spontaneously breathing above the vent even though comatose. Pupils are 5 mm briskly reactive bilaterally. Patient has no purposeful movements but he does slightly withdraw bilateral upper extremities to central pain. In discussion with Dr. capellan and family (patient's and son), decision was made to place patient on induced hypothermia for neuro protection after cardiac arrest. Patient was emergently moved to the CAT scan, CT of the head was found to be negative, he was then moved to the ICU and I placed the right femoral heat exchange catheter. Patient will be emergently started on induced hypothermia protocol SUBJ 04/11/16: Initiated on induced hypothermia yesterday, achieved target temperature at 11 PM, rewarming restarted 11 PM today. Patient currently on 2 mics per minute of Levophed for hypotension, dopamine was weaned off but restarted low-dose already his urine output. Neuromuscular paralysis limits neuro exam, pupils remain reactive. Troponin peak of 1.35, lactic acid was 3.7. INR 3.2 Objective Vital Signs Date Time Temp Pulse Resp B/P Pulse Ox O2 Delivery O2 Flow Rate FiO2 04/11/16 06:00 63 04/11/16 04:13 99 60 04/11/16 04:00 91.5 16 103/56 04/10/16 15:25 15 04/10/16 14:30 Ventilator Intake and Output 04/10/16 04/10/16 04/11/16 08:00 16:00 00:00 Intake Total 3907 ml Output Total 885 ml Balance 3022 ml Result Diagram: 04/11/16 0620 04/11/16 0620 Other Results Laboratory Tests Test 04/10/16 14:53 Blood Gas Puncture Site RT RADIAL Blood Gas Patient Temperature 98.6 Blood Gas HCO3 23 mmol/L (22-26) Blood Gas Base Excess -2.3 mmol/L (-2-2) Blood Gas Oxygen Saturation 94 % (90-100) Arterial Blood pH 7.34 (7.380-7.420) Arterial Blood Partial 43 mmHg (38-42) Pressure CO2 Arterial Blood Partial 158 mmHG Pressure O2 (61-120) Arterial Blood Oxygen Content 24.5 Vol % (12.0-20.0) Arterial Blood 1.7 % (0-4) Carboxyhemoglobin Arterial Blood Methemoglobin 1.9 % (0-2) Blood Gas Hemoglobin 18.3 G/DL (12.0-16.0) Oxygen Delivery Device VENTILATOR Blood Gas Ventilator Setting A/C500/12/PEEP5 Blood Gas Inspired Oxygen 100 % Imaging CT of the head no acute bleed Chest x-ray shows bibasilar infiltrates Objective Remarks GENERAL: Well-nourished, well-developed elderly white male patient who is intubated, sedated and neuromuscularly paralyzed SKIN: Warm and dry. HEAD: Normocephalic. EYES: Pupils are 3 mm reactive ENT: Oral mucosa is dry. Orotracheally intubated NECK: trachea midline. CARDIOVASCULAR: Patient remains in atrial fibrillation, frequent PVCs. No murmurs RESPIRATORY: Breath sounds equal bilaterally. No wheezes or crackles GASTROINTESTINAL: Abdomen soft, nondistended. MUSCULOSKELETAL: 2+ edema of the extremities NEURO: Patient's pupils are reactive. Otherwise neuro exam limited due to neuromuscular paralysis Urinary Catheter: Yes Assessment to: Continue Vascular Central Line Catheter: Yes Assessment to: Continue Date of Insertion: Apr 10, 2016 Side: Right Location: Femoral A/P Assessment and Plan Assessment and plan NEURO: Possible anoxic brain injury following cardiac arrest -Initiated induced hypothermia per protocol. Target temperature achieved at 11 PM, rewarming will be started at 04/11/16 11 PM -Propofol for sedation along with when necessary fentanyl and continue Nimbex infusion for shivering RESP: Acute respiratory failure from failure to protect airway Aspiration pneumonitis History of obstructive sleep apnea -Assist control mechanical ventilation, 16/600/5/50% -DuoNeb every 6 hours when necessary, ventilator bundle -Empiric Zosyn for probable aspiration pneumonitis -No ventilatory weaning attempts until hypothermia protocol is completed CV: Witnessed V FIB arrest followed by PEA Probable NSTEMI vs [place] ischemia Lactic acidosis Atrial fibrillation with RVR History of CAD with stents Hx of atrial fibrillation ablation -Witnessed V. fib arrest followed by PEA following defibrillation, now on induced hypothermia -Cardiology consulted Dr. Capellan.unlikely to be a STEMI -Troponin peaked at 1.35, continue aspirin. Patient remains coagulopathy from Coumadin INR 3.2 - 2-D echo 04/10 EF 30-35%, diffuse hypokinesis PASP 67, mild tricuspid and aortic regurgitation -Normal saline IV fluids 84 ml per hour -Continue Levophed and dopamine and low-dose he map above 65, and improve urine output GI: -Nothing by mouth except meds. IV Protonix for GI prophylaxis : -Monitor renal function closely.Lira catheter. -Continue renal dose dopamine ID: Aspiration pneumonitis -Follow-up sputum and blood culture -Empirically treated with Zosyn 3.375 g every 6 hours HEME: Chronic Coumadin use -Monitor CBC CMP INR, 3.2 today no indication for reversal -Watch closely for bleeding when on hypothermia protocol ENDO: -Electrolyte replacement per protocol -Sliding-scale insulin PROPH: -Bilateral lower extremity SCDs. INR supratherapeutic-3.2 today. Protonix 40 mg IV daily LINES: -Heat exchange catheter placed right femoral vein CC time 50 min excluding procedures Patient remains critically, appears to have sustained anoxic brain injury now on induced hypothermia protocol, requiring multiple pressors Christine Cabrera MD Apr 11, 2016 08:31
[2016-04-11] MEDS ORDERED: SODIUM CHLOR 0.9% 1000 ML INJ 1,000 ML IV ONE (09:00)
[2016-04-11 13:10] LABS: APTT (PATIENT) 49.5 SEC (24.3-30.1); INTERNATIONAL NORMALIZED RATIO 3.8 RATIO; PROTHROMBIN TIME - PATIENT 45.1 SEC (9.8-11.6)
[2016-04-11 13:12] LABS: BICARBONATE 22.4 MEQ/L (21.0-32.0); POTASSIUM 3.6 MEQ/L (3.5-5.1)
[2016-04-12] VITALS (19 sets, daily range): BP systolic 100–137; BP diastolic 57–82; PULSE 72–107; RESP 16–35; TEMP 92.3–101.6; O2SAT 93–100
[2016-04-12] MEDS: PROPOFOL 1000 MG/100 ML INJ 100 ML IV SCH ×4 (02:30→10:20)
[2016-04-12] MEDS: CHLORHEXIDINE GLUCONATE 2 % 1 PACK (2 CLOTHS) TOP SCH (03:20)
[2016-04-12 03:35] LABS: AUTOMATED NEUTROPHIL # 7.6 TH/MM3 (1.8-7.7); BASOPHIL # 0.1 TH/MM3 (0-0.2); BASOPHIL % 0.8 % (0.0-2.0); EOSINOPHIL % 0.6 % (0.0-4.0); HEMATOCRIT 42.3 % (39.0-51.0); HEMO FLAGS DIFF FINAL; LYMPH % 3.8 % (9.0-44.0); LYMPHOCYTE # 0.3 TH/MM3 (1.0-4.8); MEAN CELL VOLUME 88.3 FL (80.0-100.0); MEAN CORPUSCULAR HEMOGLOBIN 30.7 PG (27.0-34.0); MEAN CORPUSCULAR HGB CONC 34.8 % (32.0-36.0); MONO % 2.8 % (0.0-8.0); PLATELET COUNT 181 TH/MM3 (150-450); RED BLOOD COUNT 4.79 MIL/MM3 (4.50-5.90); RED CELL DISTRIBUTION WIDTH 14.5 % (11.6-17.2); WHITE BLOOD COUNT 8.2 TH/MM3 (4.0-11.0)
[2016-04-12 03:51] LABS: PROTHROMBIN TIME - PATIENT 34.6 SEC (9.8-11.6)
[2016-04-12] MEDS: RESP: ALBUTEROL 2.5 MG/IPRATROPIUM 0.5 MG NEB (SCH) NEB ×4 (03:56→22:19)
[2016-04-12 04:10] LABS: BICARBONATE 25.3 MEQ/L (21.0-32.0); MAGNESIUM 1.6 MG/DL (1.5-2.5); POTASSIUM 3.4 MEQ/L (3.5-5.1); TOTAL BILIRUBIN ADULT 0.5 MG/DL (0.2-1.0)
[2016-04-12] MEDS: PIPERACIL-TAZO 3.375 GM PREMIX 50 ML IV SCH ×4 (05:31→22:45)
[2016-04-12] MEDS: SODIUM CHLOR 0.9% 1000 ML INJ 1,000 ML IV SCH (05:32)
--- NOTE | 2016-04-12 05:53 | RADRPT ---
EXAM DATE/TIME: 04/12/2016 04:27 [facility] COMPARISON: CHEST SINGLE AP, April 10, 2016, 14:18. INDICATIONS : Evaluate for respiratory disease. MEDICAL HISTORY : None. SURGICAL HISTORY : None. ENCOUNTER: Subsequent ACUITY: 3 days PAIN SCORE: Non-responsive. LOCATION: chest FINDINGS: Portable AP view of the chest demonstrates cardiac silhouette size at the upper limits for normal. EE G ET and NG tube remain present. Multiple EKG lines overlie the patient. There are bibasilar pleural- parenchymal opacities, left greater than right. No pneumothorax is visualized. CONCLUSION: Mildly increased bibasilar opacities likely representing pleural effusions with associated volume los s and/or consolidation. Rick Bejarano MD on April 12, 2016 at 5:51 Board Certified Radiologist. This report was verified electronically.
[2016-04-12 05:55] LABS: APTT (PATIENT) 47.7 SEC (24.3-30.1)
--- NOTE | 2016-04-12 07:07 | EKG ---
Date Performed: 04/10/2016 Time Performed: 13:50:21 PTAGE: 80 years EKG: AFib MARKED LEFT AXIS DEVIATION INTRAVENTRICULAR CONDUCTION DELAY ANTEROSEPTAL MYOCARDIAL I NFARCTION ABNORMAL ECG PREVIOUS TRACING : 06/09/2012 10.35 DOCTOR: Herberth Das Interpretating Date/Time 04/12/2016 07:04:38
[2016-04-12] MEDS: CHLORHEXIDINE 0.12% (ORAL KIT) 15 ML CUP MT SCH ×2 (08:10→22:45)
[2016-04-12] MEDS: PANTOPRAZOLE SODIUM 40 MG VIAL IV SCH (08:10)
[2016-04-12] MEDS: ASPIRIN 81 MG CHEW TAB CHEW SCH (08:11)
[2016-04-12] MEDS: SODIUM CHLORIDE 0.9% FLUSH 5 ML FLUSH IVF SCH ×2 (08:11→22:45)
--- NOTE | 2016-04-12 09:04 | PD.CARD.PN ---
Subjective Subjective Remarks intubated, mechanically ventilated (Ugo Christine) Objective Vital Signs / I&O Vital Signs Date Time Temp Pulse Resp B/P Pulse Ox O2 Delivery O2 Flow Rate FiO2 04/12/16 04:25 94 40 04/12/16 04:00 40 04/12/16 04:00 86 04/12/16 04:00 95.9 84 16 100/60 94 04/12/16 02:00 79 04/12/16 01:40 98 40 04/12/16 00:10 72 04/12/16 00:00 92.3 74 16 116/57 98 04/12/16 00:00 40 04/11/16 22:00 68 04/11/16 20:41 100 40 04/11/16 20:00 91.5 65 16 161/72 99 04/11/16 20:00 66 04/11/16 20:00 40 04/11/16 18:00 58 04/11/16 17:12 100 40 04/11/16 16:00 91.5 58 16 118/56 99 04/11/16 16:00 58 04/11/16 16:00 40 04/11/16 14:00 62 04/11/16 12:55 99 40 04/11/16 12:00 62 04/11/16 12:00 91.5 62 16 121/56 99 04/11/16 12:00 40 04/11/16 10:00 61 04/11/16 09:07 97 40 I/O 04/11/16 04/11/16 04/11/16 04/12/16 04/12/16 04/12/16 07:00 15:00 23:00 07:00 15:00 23:00 Intake Total 1360 ml 2410 ml 3040 ml 2106 ml Output Total 2975 ml 1535 ml 828 ml 665 ml Balance -1615 ml 875 ml 2212 ml 1441 ml Intake Oral 0 ml 0 ml IV Total 1360 ml 2410 ml 2410 ml 2106 ml FFP 630 ml Output Urine Total 2975 ml 1535 ml 828 ml 665 ml Gastric Drainage Total 0 ml 0 ml 0 ml Physical Exam GENERAL: Well-nourished, well-developed patient in no apparent distress. NECK: No JVD. No carotid bruit. CARDIOVASCULAR: Regular rate and rhythm. S1/S2 no murmur, rub, or gallop. RESPIRATORY: No accessory muscle use. Clear to auscultation. Breath sounds equal bilaterally. GASTROINTESTINAL: Abdomen soft, non-tender, nondistended. MUSCULOSKELETAL: Extremities without clubbing, cyanosis, or edema. Laboratory Laboratory Tests Test 04/11/16 04/11/16 04/11/16 04/11/16 12:30 13:41 14:07 15:04 Prothrombin Time 45.1 SEC Prothromb Time International 3.8 RATIO Ratio Activated Partial 49.5 SEC Thromboplast Time Sodium Level 144 MEQ/L Potassium Level 3.6 MEQ/L Chloride Level 112 MEQ/L Carbon Dioxide Level 22.4 MEQ/L Anion Gap 10 MEQ/L Blood Urea Nitrogen 11 MG/DL Creatinine 0.83 MG/DL Estimat Glomerular Filtration 89 ML/MIN Rate Random Glucose 142 MG/DL Calcium Level 7.9 MG/DL Phosphorus Level 1.4 MG/DL Magnesium Level 2.0 MG/DL Blood Bank Comment Blood Type O POSITIVE Lactic Acid Level 1.2 mmol/L Test 04/12/16 03:05 White Blood Count 8.2 TH/MM3 Red Blood Count 4.79 MIL/MM3 Hemoglobin 14.7 GM/DL Hematocrit 42.3 % Mean Corpuscular Volume 88.3 FL Mean Corpuscular Hemoglobin 30.7 PG Mean Corpuscular Hemoglobin 34.8 % Concent Red Cell Distribution Width 14.5 % Platelet Count 181 TH/MM3 Mean Platelet Volume 9.0 FL Neutrophils (%) (Auto) 92.0 % Lymphocytes (%) (Auto) 3.8 % Monocytes (%) (Auto) 2.8 % Eosinophils (%) (Auto) 0.6 % Basophils (%) (Auto) 0.8 % Neutrophils # (Auto) 7.6 TH/MM3 Lymphocytes # (Auto) 0.3 TH/MM3 Monocytes # (Auto) 0.2 TH/MM3 Eosinophils # (Auto) 0.0 TH/MM3 Basophils # (Auto) 0.1 TH/MM3 CBC Comment DIFF FINAL Differential Comment Prothrombin Time 34.6 SEC Prothromb Time International 3.0 RATIO Ratio Activated Partial 47.7 SEC Thromboplast Time Sodium Level 148 MEQ/L Potassium Level 3.4 MEQ/L Chloride Level 117 MEQ/L Carbon Dioxide Level 25.3 MEQ/L Anion Gap 6 MEQ/L Blood Urea Nitrogen 8 MG/DL Creatinine 0.69 MG/DL Estimat Glomerular Filtration 110 ML/MIN Rate Random Glucose 99 MG/DL Calcium Level 7.3 MG/DL Protein Corrected Calcium 8.0 MG/DL Phosphorus Level 2.6 MG/DL Magnesium Level 1.6 MG/DL Total Bilirubin 0.5 MG/DL Aspartate Amino Transf 26 U/L (AST/SGOT) Alanine Aminotransferase 37 U/L (ALT/SGPT) Alkaline Phosphatase 40 U/L Total Protein 5.8 GM/DL Albumin 2.8 GM/DL (Ugo Christine) Assessment and Plan Problem List: (1) Cardiac arrest (2) Ventricular fibrillation (3) Atrial fibrillation with rapid ventricular response Assessment and Plan Consider ischemic and arrhythmia workup upon neurological recovery. Currently intubated and unresponsive, hypothermia stopped [address] head neg. Troponins elevated tele reviewed, NSR. Echo: reduced EF 30-35%, diffuse hypokinesis, PA pressure 67 mmHg (Ugo Christine) Assessment and Plan cardiac arrest hemodynamically stable electrically stable since admission hypothermia protocol complete minimal neurologic recovery at this point. may consider EEG or neuro formal evaluation, if no further improvement by tomorrow. If neurologic recovery, then we will need to consider ischemic and/or arrhythmia workup further (Celestino Encarnacion MD) Ugo Christine Apr 12, 2016 09:04 Celestino Encarnacion MD Apr 12, 2016 13:41
--- NOTE | 2016-04-12 16:21 | HHI.CCPN ---
Subjective Remarks/Hospital Course Patient is an 80 year-old male with past medical history significant for coronary artery disease status post stents in 2008, chronic atrial fibrillation/ flutter status post ablation by Dr. Murrieta in 2012, hypertension, diastolic heart failure, history of aortic and tricuspid regurgitation. He was brought in to the [place] ER by EMS status post CODE BLUE, and STEMI alert called on the patient on scene. He was at [facility] with his about to order food when he suddenly appeared ill, mumbled some words and collapsed. EMS arrived in less than 5 minutes and found patient to be in ventricular fibrillation, he was immediately defibrillated and patient went into PEA. ACLS protocol was followed and it took approximately 20 minutes from the beginning of CPR to gain spontaneous circulation. Patient remained comatose after ROSC and was intubated with LMA on scene. Endotracheally intubated in ER. Case was discussed with Dr. Capellan he did not think patient meets STEMI criteria. EKG showed incomplete left bundle branch block and frequent PVCs. Cardiac enzymes are pending at this time. I was contacted for admission and consideration of induced hypothermia. I evaluated the patient in the ED. Patient had received 20 mg of IV etomidate and 100 mg of succinylcholine at 2:01 PM, I examined him at 2:50 PM approximately 45 minutes after these medications were given. Patient is spontaneously breathing above the vent even though comatose. Pupils are 5 mm briskly reactive bilaterally. Patient has no purposeful movements but he does slightly withdraw bilateral upper extremities to central pain. In discussion with Dr. capellan and family (patient's and son), decision was made to place patient on induced hypothermia for neuro protection after cardiac arrest. Patient was emergently moved to the CAT scan, CT of the head was found to be negative, he was then moved to the ICU and I placed the right femoral heat exchange catheter. Patient will be emergently started on induced hypothermia protocol SUBJ 04/11/16: Initiated on induced hypothermia yesterday, achieved target temperature at 11 PM, rewarming restarted 11 PM today. Patient currently on 2 mics per minute of Levophed for hypotension, dopamine was weaned off but restarted low-dose already his urine output. Neuromuscular paralysis limits neuro exam, pupils remain reactive. Troponin peak of 1.35, lactic acid was 3.7. INR 3.2 04/12/16: Rewarming completed at 7 AM today. Patient examined off sedation. Attempts to open eyes off propofol, did not track. No spontaneous extremity movements slightly withdraws upper extremity to central pain. Will check EEG Objective Vital Signs Date Time Temp Pulse Resp B/P Pulse Ox O2 Delivery O2 Flow Rate FiO2 04/12/16 14:00 88 04/12/16 12:00 40 04/12/16 12:00 99.1 19 122/74 93 04/10/16 15:25 15 04/10/16 14:30 Ventilator Intake and Output 04/11/16 04/11/16 04/12/16 08:00 16:00 00:00 Intake Total 1360 ml 2410 ml 3040 ml Output Total 3200 ml 1485 ml 828 ml Balance -1840 ml 925 ml 2212 ml Result Diagram: 04/12/16 0305 04/12/16 0305 Other Results Microbiology Date/Time Procedure Status Source Growth 04/10/16 16:55 Gram Stain - Final Complete Sputum Endotracheal 04/10/16 16:55 Sputum Culture - Final Complete Sputum Endotracheal HEAVY GROWTH NORMAL RESPIRATORY EMMANUELLE Imaging CT of the head no acute bleed Chest x-ray shows bibasilar infiltrates Objective Remarks GENERAL: Well-nourished, well-developed elderly white male patient who is intubated, off sedation SKIN: Warm and dry. HEAD: Normocephalic. EYES: Pupils are 3 mm reactive ENT: Oral mucosa is dry. Orotracheally intubated NECK: trachea midline. CARDIOVASCULAR: Patient remains in atrial fibrillation, rate controlled. No murmurs RESPIRATORY: Breath sounds equal bilaterally. No wheezes or crackles GASTROINTESTINAL: Abdomen soft, nondistended. MUSCULOSKELETAL: 2+ edema of the extremities NEURO: Patient's pupils are reactive. Patient attempts to open eyes, slight withdrawal of upper extremity to deep pain. No spontaneous movements he had ( patient had been on neuromuscular paralysis and heavy sedation for code cool) Date of Insertion: Apr 10, 2016 Side: Right Location: Femoral A/P Assessment and Plan Assessment and plan NEURO: Possible anoxic brain injury following cardiac arrest -Completed induced hypothermia per protocol at 0700 AM today -EEG STAT. DC all continuous sedation, DC neuromuscular blockade -MRI of the brain neurology consult if not sufficiently improving RESP: Acute respiratory failure from failure to protect airway Aspiration pneumonitis History of obstructive sleep apnea -Assist control mechanical ventilation, 16/600/5/50%, CPAP for patient comfort, without extubation (Mental status wont permit extubation) -DuoNeb every 6 hours when necessary, ventilator bundle -Empiric Zosyn for probable aspiration pneumonitis CV: Witnessed V FIB arrest followed by PEA Probable NSTEMI vs Demand ischemia Lactic acidosis Atrial fibrillation with RVR History of CAD with stents Hx of atrial fibrillation ablation -Witnessed V. fib arrest followed by PEA following defibrillation, completed induced hypothermia -Cardiology Dr. Capellan.unlikely to be a STEMI. Ischemic workup if sufficient neurological improvement -Troponin peaked at 1.35, continue aspirin. Patient remains coagulopathy from Coumadin INR 3 - 2-D echo 04/10 EF 30-35%, diffuse hypokinesis PASP 67, mild tricuspid and aortic regurgitation -Normal saline IV fluids 84 ml per hour -Continue Levophed / dopamine as needed to keep map above 65, and improve urine output GI: -Nothing by mouth except meds, start tube feeds today with Jevity. IV Protonix for GI prophylaxis : -Monitor renal function closely.Lira catheter. -Continue renal dose dopamine ID: Aspiration pneumonitis -Follow-up sputum and blood culture -Empirically treated with Zosyn 3.375 g every 6 hours HEME: Chronic Coumadin use -Monitor CBC CMP INR, 3.0 today no indication for reversal -Watch closely for bleeding when on hypothermia protocol ENDO: -Electrolyte replacement per protocol -Sliding-scale insulin PROPH: -Bilateral lower extremity SCDs. INR supratherapeutic-3.0 today. Protonix 40 mg IV daily LINES: -Heat exchange catheter placed right femoral vein-remove in the next 24 hours CC time 40 min excluding procedures Patient remains critically, appears to have sustained anoxic brain injury now completed induced hypothermia protocol. Patient's mental status will not permit extubation, he will need ventilatory support to sustain life Christine Cabrera MD Apr 12, 2016 16:21
[2016-04-12 17:21] LABS: BICARBONATE 24.4 MEQ/L (21.0-32.0); MAGNESIUM 1.7 MG/DL (1.5-2.5); POTASSIUM 3.7 MEQ/L (3.5-5.1)
--- NOTE | 2016-04-12 17:46 | RADRPT ---
EXAM DATE/TIME: 04/12/2016 16:42 [facility] COMPARISON: CHEST SINGLE AP, April 12, 2016, 4:27. INDICATIONS : Respiratory Disease. MEDICAL HISTORY : Cardiac Arrest. SURGICAL HISTORY : None. ENCOUNTER: Initial ACUITY: 1 day PAIN SCORE: Non-responsive. LOCATION: chest FINDINGS: Endotracheal tube, nasogastric tube remain in place. Persistent bilateral pulmonary opacity with left lower lobe consolidation versus atelectasis. Small left pleural effusion. No significant interval ch [place]. CONCLUSION: No significant neural change in mild hazy bilateral pulmonary opacity, left lower lobe consolidation versus atelectasis, and small left pleural effusion. Willi Mosley MD on April 12, 2016 at 17:44 Board Certified Radiologist. This report was verified electronically.
[2016-04-12] MEDS ORDERED: PROPOFOL 1000 MG/100 ML INJ 100 ML ONE (18:00)
[2016-04-12] MEDS ORDERED: PROPOFOL 1000 MG/100 ML IV SCH (18:30)
--- NOTE | 2016-04-12 19:23 | MG ---
cc: NURIA OLVERA MD Lab No: [id number] Date: 04/12/2016 Age: Sex: M Race: 2-3 Hz posterior rhythm, 20-60 microvolts with pseudo periodic frontal sharp waves occurring. Mild EEG variability reactivity. Limited driving with photic stimulation. INTERPRETATION: Moderate encephalopathy with mild pseudo periodic frontal sharp transients. No active seizures. Clinical correlation. Nuria Olvera MD /GOPI /7:07 PM /7:21 PM
[2016-04-12] MEDS: SODIUM CHLORIDE 0.9% FLUSH 5 ML FLUSH IVF PRN (22:45)
[2016-04-13] VITALS (21 sets, daily range): BP systolic 106–149; BP diastolic 53–68; PULSE 68–95; RESP 14–36; TEMP 99–101.2; O2SAT 95–99
[2016-04-13] MEDS: CHLORHEXIDINE GLUCONATE 2 % 1 PACK (2 CLOTHS) TOP SCH (04:00)
[2016-04-13] MEDS: RESP: ALBUTEROL 2.5 MG/IPRATROPIUM 0.5 MG NEB (SCH) NEB ×4 (04:17→20:38)
[2016-04-13 04:43] LABS: AUTOMATED NEUTROPHIL # 7.8 TH/MM3 (1.8-7.7); BASOPHIL % 0.4 % (0.0-2.0); EOSINOPHIL # 0.1 TH/MM3 (0-0.4); EOSINOPHIL % 0.7 % (0.0-4.0); HEMATOCRIT 43.6 % (39.0-51.0); HEMO FLAGS DIFF FINAL; INTERNATIONAL NORMALIZED RATIO 2.2 RATIO; LYMPH % 7.5 % (9.0-44.0); LYMPHOCYTE # 0.7 TH/MM3 (1.0-4.8); MEAN CELL VOLUME 89.6 FL (80.0-100.0); MEAN CORPUSCULAR HEMOGLOBIN 30.2 PG (27.0-34.0); MEAN CORPUSCULAR HGB CONC 33.7 % (32.0-36.0); MONO % 10.1 % (0.0-8.0); NEUT % 81.3 % (16.0-70.0); PLATELET COUNT 206 TH/MM3 (150-450); PROTHROMBIN TIME - PATIENT 25.1 SEC (9.8-11.6); RED BLOOD COUNT 4.87 MIL/MM3 (4.50-5.90); RED CELL DISTRIBUTION WIDTH 14.8 % (11.6-17.2); WHITE BLOOD COUNT 9.6 TH/MM3 (4.0-11.0)
[2016-04-13 04:59] LABS: ALT (GPT) 33 U/L (12-78); ANION GAP 8 MEQ/L (5-15); AST (GOT) 23 U/L (15-37); BICARBONATE 24.4 MEQ/L (21.0-32.0); BLOOD UREA NITROGEN 8 MG/DL (7-18); CHLORIDE 114 MEQ/L (98-107); GLOMERULAR FILTRATION RATE 66 ML/MIN (>89); MAGNESIUM 1.8 MG/DL (1.5-2.5); POTASSIUM 3.4 MEQ/L (3.5-5.1); SODIUM (NA) 146 MEQ/L (136-145)
[2016-04-13 05:01] LABS: ALKALINE PHOSPHATASE 42 U/L (45-117); TOTAL BILIRUBIN ADULT 0.4 MG/DL (0.2-1.0)
[2016-04-13] MEDS: PIPERACIL-TAZO 3.375 GM PREMIX 50 ML IV SCH ×3 (05:30→17:51)
[2016-04-13] MEDS: ACETAMINOPHEN 325 MG TAB PO PRN (06:27)
[2016-04-13] MEDS ORDERED: DEXMEDETOMIDINE INJ 50 ML IV SCH ×2 (07:30→08:00)
[2016-04-13] MEDS: CHLORHEXIDINE 0.12% (ORAL KIT) 15 ML CUP MT SCH (08:00)
[2016-04-13] MEDS: PANTOPRAZOLE SODIUM 40 MG VIAL IV SCH (08:44)
[2016-04-13] MEDS: ASPIRIN 81 MG CHEW TAB CHEW SCH (08:44)
[2016-04-13] MEDS: SODIUM CHLORIDE 0.9% FLUSH 5 ML FLUSH IVF SCH (09:00)
--- NOTE | 2016-04-13 09:14 | PD.CARD.PN ---
Subjective Subjective Remarks Chart reviewed. The patient is intubated. He is sedated but had no purposeful movement when awoken. Objective Medications Reviewed Vital Signs / I&O Vital Signs Date Time Temp Pulse Resp B/P Pulse Ox O2 Delivery O2 Flow Rate FiO2 04/13/16 08:50 40 04/13/16 08:25 40 04/13/16 08:25 97 40 04/13/16 08:25 40 04/13/16 08:00 40 04/13/16 08:00 89 04/13/16 06:00 89 04/13/16 04:17 98 40 04/13/16 04:00 40 04/13/16 04:00 83 04/13/16 04:00 100.9 83 25 114/59 99 04/13/16 02:00 88 04/13/16 01:36 99 40 04/13/16 00:00 40 04/13/16 00:00 88 04/13/16 00:00 101.2 88 22 149/68 98 04/12/16 22:00 87 04/12/16 21:25 100 40 04/12/16 20:00 87 04/12/16 20:00 40 04/12/16 20:00 101.6 87 20 126/71 96 04/12/16 18:14 96 40 04/12/16 18:00 107 04/12/16 16:33 33 04/12/16 16:00 98 04/12/16 16:00 101.1 98 35 137/82 94 04/12/16 16:00 40 04/12/16 15:29 40 04/12/16 14:44 96 40 04/12/16 14:00 88 04/12/16 12:00 40 04/12/16 12:00 94 04/12/16 12:00 99.1 94 19 122/74 93 04/12/16 11:49 95 40 04/12/16 10:00 85 04/12/16 09:30 96 40 I/O 04/12/16 04/12/16 04/12/16 04/13/16 04/13/16 04/13/16 07:00 15:00 23:00 07:00 15:00 23:00 Intake Total 2375 ml 833 ml 279 ml 647 ml 0 ml Output Total 725 ml 318 ml 380.0 ml 480 ml 130.0 ml Balance 1650 ml 515 ml -101.0 ml 167 ml -130.0 ml Intake Oral 0 ml 0 ml 0 ml 0 ml IV Total 2375 ml 773 ml 279 ml 230 ml Tube Feeding 417 ml Tube Irrigant 60 ml Output Urine Total 725 ml 318 ml 380 ml 480 ml 130 ml Gastric Drainage Total 0 ml 0 ml 0 ml Tube Feeding Residual Discard 0 ml 0 ml # Bowel Movements 0 1 Physical Exam GENERAL: Intubated SKIN: Warm and dry. NECK: JVD normal - less than or equal to 5 cm H20. CARDIOVASCULAR: No murmurs, gallops, or rubs. RESPIRATORY: Normal breath sounds - equal bilaterally. No accessory muscle use. No wheezes, rales or rubs. PERIPHERY: No cyanosis, or edema. Laboratory Laboratory Tests Test 04/12/16 04/13/16 14:36 03:30 Sodium Level 147 MEQ/L 146 MEQ/L Potassium Level 3.7 MEQ/L 3.4 MEQ/L Chloride Level 114 MEQ/L 114 MEQ/L Carbon Dioxide Level 24.4 MEQ/L 24.4 MEQ/L Anion Gap 9 MEQ/L 8 MEQ/L Blood Urea Nitrogen 7 MG/DL 8 MG/DL Creatinine 1.05 MG/DL 1.07 MG/DL Estimat Glomerular Filtration 68 ML/MIN 66 ML/MIN Rate Random Glucose 105 MG/DL 112 MG/DL Calcium Level 7.6 MG/DL 7.9 MG/DL Phosphorus Level 2.9 MG/DL Magnesium Level 1.7 MG/DL 1.8 MG/DL White Blood Count 9.6 TH/MM3 Red Blood Count 4.87 MIL/MM3 Hemoglobin 14.7 GM/DL Hematocrit 43.6 % Mean Corpuscular Volume 89.6 FL Mean Corpuscular Hemoglobin 30.2 PG Mean Corpuscular Hemoglobin 33.7 % Concent Red Cell Distribution Width 14.8 % Platelet Count 206 TH/MM3 Mean Platelet Volume 9.5 FL Neutrophils (%) (Auto) 81.3 % Lymphocytes (%) (Auto) 7.5 % Monocytes (%) (Auto) 10.1 % Eosinophils (%) (Auto) 0.7 % Basophils (%) (Auto) 0.4 % Neutrophils # (Auto) 7.8 TH/MM3 Lymphocytes # (Auto) 0.7 TH/MM3 Monocytes # (Auto) 1.0 TH/MM3 Eosinophils # (Auto) 0.1 TH/MM3 Basophils # (Auto) 0.0 TH/MM3 CBC Comment DIFF FINAL Differential Comment Prothrombin Time 25.1 SEC Prothromb Time International 2.2 RATIO Ratio Total Bilirubin 0.4 MG/DL Aspartate Amino Transf 23 U/L (AST/SGOT) Alanine Aminotransferase 33 U/L (ALT/SGPT) Alkaline Phosphatase 42 U/L Total Protein 6.2 GM/DL Albumin 2.8 GM/DL Imaging Last 48 hours Impressions Chest X-Ray 04/12/16 0600 Signed Impressions: Service Date/Time: Tuesday, April 12, 2016 04:27 - CONCLUSION: Mildly increased bibasilar opacities likely representing pleural effusions with associated volume loss and/or consolidation. Rick Bejarano MD Chest X-Ray 04/12/16 0000 Signed Impressions: Service Date/Time: Tuesday, April 12, 2016 16:42 - CONCLUSION: No significant neural change in mild hazy bilateral pulmonary opacity, left lower lobe consolidation versus atelectasis, and small left pleural effusion. Willi Mosley MD Assessment and Plan Assessment and Plan Problems: Cardiac arrest History of atrial fibrillation Moderate left ventricular dysfunction Probable ischemic encephalopathy Known coronary artery disease Recommendations: Continue supportive care through critical care medicine. We will see tomorrow on an as-needed basis Dr. capellan will return on Friday. Uli Garner MD Apr 13, 2016 09:14
[2016-04-13] MEDS ORDERED: POTASSIUM CL 40 MEQ/30 ML LIQ UDC PO ONE (10:30)
[2016-04-13] MEDS ORDERED: BUMETANIDE INJ 1 MG/4 ML VIAL IV PUSH ONE (10:30)
[2016-04-13] MEDS ORDERED: VANCOMYCIN INJ 1,250 MG in SODIUM CHLOR 0.9% 250 ML INJ 250 ML IV ONE (10:30)
--- NOTE | 2016-04-13 10:33 | HHI.CCPN ---
Subjective Remarks/Hospital Course Patient is an 80 year-old male with past medical history significant for coronary artery disease status post stents in 2008, chronic atrial fibrillation/ flutter status post ablation by Dr. Murrieta in 2012, hypertension, diastolic heart failure, history of aortic and tricuspid regurgitation. He was brought in to the [place] ER by EMS status post CODE BLUE, and STEMI alert called on the patient on scene. He was at [facility] with his about to order food when he suddenly appeared ill, mumbled some words and collapsed. EMS arrived in less than 5 minutes and found patient to be in ventricular fibrillation, he was immediately defibrillated and patient went into PEA. ACLS protocol was followed and it took approximately 20 minutes from the beginning of CPR to gain spontaneous circulation. Patient remained comatose after ROSC and was intubated with LMA on scene. Endotracheally intubated in ER. Case was discussed with Dr. Capellan he did not think patient meets STEMI criteria. EKG showed incomplete left bundle branch block and frequent PVCs. Cardiac enzymes are pending at this time. I was contacted for admission and consideration of induced hypothermia. I evaluated the patient in the ED. Patient had received 20 mg of IV etomidate and 100 mg of succinylcholine at 2:01 PM, I examined him at 2:50 PM approximately 45 minutes after these medications were given. Patient is spontaneously breathing above the vent even though comatose. Pupils are 5 mm briskly reactive bilaterally. Patient has no purposeful movements but he does slightly withdraw bilateral upper extremities to central pain. In discussion with Dr. capellan and family (patient's and son), decision was made to place patient on induced hypothermia for neuro protection after cardiac arrest. Patient was emergently moved to the CAT scan, CT of the head was found to be negative, he was then moved to the ICU and I placed the right femoral heat exchange catheter. Patient will be emergently started on induced hypothermia protocol SUBJ 04/11/16: Initiated on induced hypothermia yesterday, achieved target temperature at 11 PM, rewarming restarted 11 PM today. Patient currently on 2 mics per minute of Levophed for hypotension, dopamine was weaned off but restarted low-dose already his urine output. Neuromuscular paralysis limits neuro exam, pupils remain reactive. Troponin peak of 1.35, lactic acid was 3.7. INR 3.2 04/12/16: Rewarming completed at 7 AM today. Patient examined off sedation. Attempts to open eyes off propofol, did not track. No spontaneous extremity movements slightly withdraws upper extremity to central pain. Will check EEG 04/13/16: Remains intubated sedated with propofol. Opens eyes to verbal commands moves all extremities. Slowly improving neuro exam. Failed C Pap trial secondary to tachypnea. Spiking fever up to 101 Objective Vital Signs Date Time Temp Pulse Resp B/P Pulse Ox O2 Delivery O2 Flow Rate FiO2 04/13/16 08:50 40 04/13/16 08:25 97 04/13/16 08:00 89 04/13/16 04:00 100.9 25 114/59 04/10/16 15:25 15 04/10/16 14:30 Ventilator Intake and Output 04/12/16 04/12/16 04/13/16 08:00 16:00 00:00 Intake Total 2536 ml 733 ml 218 ml Output Total 580 ml 378 ml 410.0 ml Balance 1956 ml 355 ml -192.0 ml Result Diagram: 04/13/16 0330 04/13/16 0330 Other Results Microbiology Date/Time Procedure Status Source Growth 04/10/16 16:55 Gram Stain - Final Complete Sputum Endotracheal 04/10/16 16:55 Sputum Culture - Final Complete Sputum Endotracheal HEAVY GROWTH NORMAL RESPIRATORY EMMANUELLE Imaging CT of the head no acute bleed Chest x-ray shows bibasilar infiltrates Objective Remarks GENERAL: Well-nourished, well-developed elderly white male patient who is intubated, on Precedex SKIN: Warm and dry. HEAD: Normocephalic. EYES: Pupils are 3 mm reactive ENT: Oral mucosa is dry. Orotracheally intubated NECK: trachea midline. CARDIOVASCULAR: Patient remains in atrial fibrillation, rate controlled. No murmurs RESPIRATORY: Breath sounds equal bilaterally. No wheezes or crackles GASTROINTESTINAL: Abdomen soft, nondistended. MUSCULOSKELETAL: 2+ edema of the extremities NEURO: Patient's pupils are reactive. Opens eyes to verbal command, tracks. Moves all extremities spontaneously, did not follow commands yet Date of Insertion: Apr 10, 2016 Side: Right Location: Femoral A/P Assessment and Plan Assessment and plan NEURO: Possible anoxic brain injury following cardiac arrest -Completed induced hypothermia per protocol at 0700 AM 04/12/16 -EEG moderate encephalopathy, no seizures -DC propofol start Precedex to facilitate ventilator weaning -Showing some signs of improvement in neuro exam RESP: Acute respiratory failure from failure to protect airway Aspiration pneumonitis History of obstructive sleep apnea -Assist control mechanical ventilation, 16/600/5/50%, CPAP trials daily -DuoNeb every 6 hours when necessary, ventilator bundle -Empiric Zosyn for probable aspiration pneumonitis CV: Witnessed V FIB arrest followed by PEA Probable NSTEMI vs Demand ischemia Lactic acidosis Atrial fibrillation with RVR Fluid overload History of CAD with stents Hx of atrial fibrillation ablation -Witnessed V. fib arrest followed by PEA following defibrillation, completed induced hypothermia -Cardiology Dr. Capellan, unlikely to be a STEMI. Ischemic workup if sufficient neurological improvement -Troponin peaked at 1.35, continue aspirin. Patient remains coagulopathy from Coumadin INR 2.2 today -2-D echo 04/10 EF 30-35%, diffuse hypokinesis PASP 67, mild tricuspid and aortic regurgitation -Normal saline IV fluids 84 ml per hour-DC and start Bumex 2 mg IV x1 -Wean to DC all pressors GI: -Tube feeds with Jevity. IV Protonix for GI prophylaxis : -Monitor renal function closely.Lira catheter. -Bumex 2 mg IV x1 ID: Aspiration pneumonitis -Previous cultures negative, send repeat blood urine and sputum -Empirically treated with Zosyn 3.375 g every 6 hours, give single dose of vancomycin 04/13/16 HEME: Chronic Coumadin use -Monitor CBC CMP INR, 2.2 -Consult pharmacy for Coumadin dosing ENDO: -Electrolyte replacement per protocol -Sliding-scale insulin PROPH: -Bilateral lower extremity SCDs. INR supratherapeutic-2.2 today. Protonix 40 mg IV daily LINES: -Heat exchange catheter placed right femoral vein-removed today 04/13/16 CC time 40 min excluding procedures Patient remains critically, appears to have sustained anoxic brain injury now completed induced hypothermia protocol. Patient's mental status will not permit extubation, he will need ventilatory support to sustain life Christine Cabrera MD Apr 13, 2016 10:33
[2016-04-13] MEDS ORDERED: DEXMEDETOMIDINE INJ 400 MCG in SODIUM CHLORIDE 0.9% INJ 96 ML IV SCH (11:00)
[2016-04-13] MEDS ORDERED: WARFARIN SOD 2.5 MG TAB PO SCH (16:00)
[2016-04-14] VITALS (20 sets, daily range): BP systolic 103–137; BP diastolic 55–77; PULSE 62–103; RESP 14–24; TEMP 96.1–99.2; O2SAT 91–98
[2016-04-14] MEDS: RESP: ALBUTEROL 2.5 MG/IPRATROPIUM 0.5 MG NEB (SCH) NEB ×4 (03:16→20:44)
--- NOTE | 2016-04-14 04:10 | RADRPT ---
EXAM DATE/TIME: 04/14/2016 02:47 [facility] COMPARISON: CHEST SINGLE AP, April 12, 2016, 16:42. INDICATIONS : Shortness of breath, possible pulmonary disease. MEDICAL HISTORY : Myocardial infarction. SURGICAL HISTORY : None. ENCOUNTER: Subsequent ACUITY: 2 days PAIN SCORE: Non-responsive. LOCATION: Bilateral chest FINDINGS: Portable AP view of the chest demonstrates normal size cardiac silhouette. ETT and nasogastric tube r emain present. Lungs are underinflated and there are perihilar and lower lung zone interstitial opaci ties bilaterally. No pneumothorax or definite effusion is seen. CONCLUSION: Bilateral perihilar and lower lung zone interstitial opacity remains present and could represent pulm onary edema. The small left pleural effusion documented on the prior study is not seen today. Rick Bejarano MD on April 14, 2016 at 4:07 Board Certified Radiologist. This report was verified electronically.
[2016-04-14 05:38] LABS: AUTOMATED NEUTROPHIL # 8.2 TH/MM3 (1.8-7.7); BASOPHIL # 0.1 TH/MM3 (0-0.2); BASOPHIL % 0.6 % (0.0-2.0); EOSINOPHIL # 0.1 TH/MM3 (0-0.4); HEMATOCRIT 41.5 % (39.0-51.0); HEMO FLAGS DIFF FINAL; LYMPH % 6.8 % (9.0-44.0); LYMPHOCYTE # 0.7 TH/MM3 (1.0-4.8); MEAN CELL VOLUME 88.2 FL (80.0-100.0); MEAN CORPUSCULAR HEMOGLOBIN 30.6 PG (27.0-34.0); MEAN CORPUSCULAR HGB CONC 34.7 % (32.0-36.0); MONO % 8.3 % (0.0-8.0); NEUT % 83.3 % (16.0-70.0); PLATELET COUNT 181 TH/MM3 (150-450); RED BLOOD COUNT 4.71 MIL/MM3 (4.50-5.90); RED CELL DISTRIBUTION WIDTH 14.4 % (11.6-17.2); WHITE BLOOD COUNT 9.8 TH/MM3 (4.0-11.0)
[2016-04-14 05:44] LABS: ANION GAP 8 MEQ/L (5-15); AST (GOT) 44 U/L (15-37); BICARBONATE 26.7 MEQ/L (21.0-32.0); BLOOD UREA NITROGEN 11 MG/DL (7-18); CHLORIDE 113 MEQ/L (98-107); GLOMERULAR FILTRATION RATE 69 ML/MIN (>89); MAGNESIUM 1.9 MG/DL (1.5-2.5); POTASSIUM 3.6 MEQ/L (3.5-5.1); SODIUM (NA) 148 MEQ/L (136-145)
[2016-04-14 05:47] LABS: ALKALINE PHOSPHATASE 43 U/L (45-117); ALT (GPT) 45 U/L (12-78); TOTAL BILIRUBIN ADULT 1.4 MG/DL (0.2-1.0)
[2016-04-14 05:49] LABS: INTERNATIONAL NORMALIZED RATIO 1.4 RATIO; PROTHROMBIN TIME - PATIENT 16.1 SEC (9.8-11.6)
[2016-04-14] MEDS: PIPERACIL-TAZO 3.375 GM PREMIX 50 ML IV SCH ×5 (06:32→23:03)
[2016-04-14] MEDS ORDERED: BUMETANIDE INJ 1 MG/4 ML VIAL ONE (06:38)
[2016-04-14] MEDS ORDERED: BUMETANIDE INJ 1 MG/4 ML VIAL IV PUSH SCH (06:45)
[2016-04-14] MEDS ORDERED: POTASSIUM CL 40 MEQ/30 ML LIQ UDC TUBE SCH (07:00)
--- NOTE | 2016-04-14 07:22 | HHI.CCPN ---
Subjective Remarks/Hospital Course Patient is an 80 year-old male with past medical history significant for coronary artery disease status post stents in 2008, chronic atrial fibrillation/ flutter status post ablation by Dr. Murrieta in 2012, hypertension, diastolic heart failure, history of aortic and tricuspid regurgitation. He was brought in to the [place] ER by EMS status post CODE BLUE, and STEMI alert called on the patient on scene. He was at [facility] with his about to order food when he suddenly appeared ill, mumbled some words and collapsed. EMS arrived in less than 5 minutes and found patient to be in ventricular fibrillation, he was immediately defibrillated and patient went into PEA. ACLS protocol was followed and it took approximately 20 minutes from the beginning of CPR to gain spontaneous circulation. Patient remained comatose after ROSC and was intubated with LMA on scene. Endotracheally intubated in ER. Case was discussed with Dr. Capellan he did not think patient meets STEMI criteria. EKG showed incomplete left bundle branch block and frequent PVCs. Cardiac enzymes are pending at this time. I was contacted for admission and consideration of induced hypothermia. I evaluated the patient in the ED. Patient had received 20 mg of IV etomidate and 100 mg of succinylcholine at 2:01 PM, I examined him at 2:50 PM approximately 45 minutes after these medications were given. Patient is spontaneously breathing above the vent even though comatose. Pupils are 5 mm briskly reactive bilaterally. Patient has no purposeful movements but he does slightly withdraw bilateral upper extremities to central pain. In discussion with Dr. capellan and family (patient's and son), decision was made to place patient on induced hypothermia for neuro protection after cardiac arrest. Patient was emergently moved to the CAT scan, CT of the head was found to be negative, he was then moved to the ICU and I placed the right femoral heat exchange catheter. Patient will be emergently started on induced hypothermia protocol SUBJ 04/11/16: Initiated on induced hypothermia yesterday, achieved target temperature at 11 PM, rewarming restarted 11 PM today. Patient currently on 2 mics per minute of Levophed for hypotension, dopamine was weaned off but restarted low-dose already his urine output. Neuromuscular paralysis limits neuro exam, pupils remain reactive. Troponin peak of 1.35, lactic acid was 3.7. INR 3.2 04/12/16: Rewarming completed at 7 AM today. Patient examined off sedation. Attempts to open eyes off propofol, did not track. No spontaneous extremity movements slightly withdraws upper extremity to central pain. Will check EEG 04/13/16: Remains intubated sedated with propofol. Opens eyes to verbal commands moves all extremities. Slowly improving neuro exam. Failed C Pap trial secondary to tachypnea. Spiking fever up to 101 05/04/16: Precedex held 5 minutes before exam. Patient appears to be waking up more, tracking. CXR continues to show pulmonary edema. Moves all extremities not following commands. Additional 2 mg Bumex given followed by Bumex 1 mg every 12 hours Objective Vital Signs Date Time Temp Pulse Resp B/P Pulse Ox O2 Delivery O2 Flow Rate FiO2 04/14/16 06:00 62 04/14/16 04:15 96 40 04/14/16 04:00 99.1 16 128/59 04/10/16 15:25 15 04/10/16 14:30 Ventilator Intake and Output 04/13/16 04/13/16 04/14/16 08:00 16:00 00:00 Intake Total 647 ml 0 ml 778 ml Output Total 430.0 ml 1880 ml 800 ml Balance 217.0 ml -1880 ml -22 ml Result Diagram: 04/14/16 0410 04/14/[address] of the head no acute bleed Chest x-ray shows bibasilar infiltrates Objective Remarks GENERAL: Well-nourished, well-developed elderly white male patient who is intubated, on Precedex SKIN: Warm and dry. HEAD: Normocephalic. EYES: Pupils are 3 mm reactive ENT: Oral mucosa is dry. Orotracheally intubated NECK: trachea midline. CARDIOVASCULAR: Patient remains in atrial fibrillation, rate controlled. No murmurs RESPIRATORY: Breath sounds equal bilaterally. Few scattered wheezes and basilar crackles GASTROINTESTINAL: Abdomen soft, nondistended. MUSCULOSKELETAL: 2+ edema of the extremities NEURO: Patient's pupils are reactive. Encephalopathic but Opens eyes to verbal command, tracks. Moves all extremities spontaneously, did not follow commands Urinary Catheter: Yes Assessment to: Continue Vascular Central Line Catheter: Yes Assessment to: Continue Date of Insertion: Apr 10, 2016 Side: Right Location: Femoral A/P Assessment and Plan Assessment and plan NEURO: Possible anoxic brain injury following cardiac arrest -Completed induced hypothermia per protocol at 0700 AM 04/12/16 -EEG moderate encephalopathy, no seizures -Precedex to facilitate ventilator weaning -Slowly showing some signs of improvement in neuro exam RESP: Acute respiratory failure from failure to protect airway Aspiration pneumonitis History of obstructive sleep apnea -Assist control mechanical ventilation, 16/600/5/50%, CPAP trials daily -DuoNeb every 6 hours when necessary, ventilator bundle -Empiric Zosyn for probable aspiration pneumonitis CV: Witnessed V FIB arrest followed by PEA Probable NSTEMI vs Demand ischemia Pulmonary edema Ischemic cardiomyopathy Lactic acidosis Atrial fibrillation with RVR History of CAD with stents Hx of atrial fibrillation ablation -Witnessed V. fib arrest followed by PEA following defibrillation, completed induced hypothermia -Cardiology Dr. Capellan, unlikely to be a STEMI. Ischemic workup if sufficient neurological improvement -Troponin peaked at 1.35, continue aspirin. INR subtherapeutic Coumadin dosing by pharmacy -2-D echo 04/10 EF 30-35%, diffuse hypokinesis PASP 67, mild tricuspid and aortic regurgitation -Start Bumex 2 mg IV x1 and 1 mg IV q12 with KCL supplementation GI: -Tube feeds with Jevity. IV Protonix for GI prophylaxis : -Monitor renal function closely.Lira catheter. -Bumex 2 mg IV x1, and 1 mg q12 ID: Aspiration pneumonitis -Previous cultures negative, send repeat blood urine and sputum -Empirically treated with Zosyn 3.375 g every 6 hours, give single dose of vancomycin 04/13/16 HEME: Chronic Coumadin use -Monitor CBC CMP INR, 1.4 -Consulted pharmacy for Coumadin dosing ENDO: -Electrolyte replacement per protocol -Sliding-scale insulin PROPH: -Bilateral lower extremity SCDs. INR 1.4, Coumadin dosing per family. Protonix 40 mg IV daily LINES: -Heat exchange catheter placed right femoral vein-removed 04/13/16 CC time 40 min excluding procedures Patient remains critically, appears to have sustained anoxic brain injury now completed induced hypothermia protocol. Patient's mental status will not permit extubation, he will need ventilatory support to sustain life Christine Cabrera MD Apr 14, 2016 07:22
[2016-04-14] MEDS: CHLORHEXIDINE 0.12% (ORAL KIT) 15 ML CUP MT SCH ×3 (08:00→23:02)
[2016-04-14] MEDS: ASPIRIN 81 MG CHEW TAB CHEW SCH (08:37)
[2016-04-14] MEDS: BUMETANIDE INJ 1 MG/4 ML VIAL IV PUSH SCH ×2 (08:37→23:02)
[2016-04-14] MEDS: PANTOPRAZOLE SODIUM 40 MG VIAL IV SCH (08:37)
[2016-04-14] MEDS ORDERED: ROCURONIUM INJ 50 MG/5 ML VIAL ONE (12:56)
[2016-04-14] MEDS ORDERED: ROCURONIUM INJ 100 MG/10 ML VIAL IV ONE (13:00)
[2016-04-14] MEDS ORDERED: ETOMIDATE 40 MG/20 ML VIAL IV PUSH ONE (13:00)
[2016-04-14] MEDS ORDERED: PROPOFOL 1000 MG/100 ML INJ 100 ML IV SCH (13:00)
--- NOTE | 2016-04-14 13:26 | PD.PROCEDR ---
Procedure Note Procedure DATE: 04/14/16 PROCEDURE: Orotracheal intubation INDICATION: Acute respiratory failure DETAILS OF PROCEDURE The patient was placed in optimal position and preoxygenated with 100% FiO2 via bag valve mask. At the start oxygen saturation was 100%. The patient was administered 20 mg etomidate IV and D milligrams rocuronium IV. I entered the oropharynx with a size 4 Sivakumar laryngoscope blade and obtained a grade 2 view of the airway. On single attempt a size 8.0 cuffed endotracheal tube was passed through the vocal cords. Correct tube location was confirmed with end tidal CO2 detector and by auscultating over bilateral lung morrow. The endotracheal tube was secured with adhesive tape at a depth of 24 cm at the lips. The patient was connected to the ventilator. The patient tolerated the procedure well without any apparent complications. Oxygen saturations were maintained greater than 95% all times. STAT chest x-ray reveals adequate positioning of ET tube. Qamar Estrada MD Apr 14, 2016 13:26
--- NOTE | 2016-04-14 13:37 | RADRPT ---
EXAM DATE/TIME: 04/14/2016 13:11 [facility] COMPARISON: CHEST SINGLE AP, April 14, 2016, 2:47. INDICATIONS : Post intubation. MEDICAL HISTORY : Myocardial infarction. SURGICAL HISTORY : None. ENCOUNTER: Initial ACUITY: 1 day PAIN SCORE: Non-responsive. LOCATION: Bilateral chest FINDINGS: A single view of the chest demonstrates cardiomegaly with indistinctness of the pulmonary vasculature . Increased pulmonary vascularity. Endotracheal tube with tip 5 cm above the smith.. The cardiomedi astinal contours are unremarkable. Osseous structures are intact. CONCLUSION: Cardiomegaly and CHF. Adequate placement of endotracheal tube. Benton Marks MD on April 14, 2016 at 13:35 Board Certified Radiologist. This report was verified electronically.
[2016-04-14 15:31] LABS: BLOOD GAS BASE EXCESS 4.2 mmol/L (-2-2); BLOOD GAS CARBOXYHEMOGLOBIN 1.7 % (0-4); BLOOD GAS HCO3 28 mmol/L (22-26); BLOOD GAS O2 HGB SATURATION 94 % (90-100); BLOOD GAS OXYGEN CONTENT 19.8 Vol % (12.0-20.0); BLOOD GAS PCO2 42 mmHg (38-42); BLOOD GAS PO2 83 mmHg (61-120); CRITICAL VALUE NO; OXYGEN DEVICE VENTILATOR; TEMP CORR TO 98.6
[2016-04-14 15:32] LABS: DRAW SITE RT RADIAL; FIO2 40 %; NUMBER OF ARTERIAL PUNCTURES 1; STAT NO; ULNAR PULSE PRESENT; VENT SETTINGS A/C 500/14/5PEEP
[2016-04-14] MEDS: WARFARIN SOD 4 MG TAB PO SCH (16:00)
--- NOTE | 2016-04-14 18:50 | MB ---
cc: ONDINA HERNANDEZ MD DATE OF CONSULTATION 04/14/2016 REASON FOR CONSULTATION Encephalopathy with anoxic brain injury. HISTORY OF THE PRESENT ILLNESS During the encounter the patient is vented and sedated, hence the medical information is obtained from the nurse with thoroughly explained the history and from the medical records. Mr. Chin is an 80-year-old male with past medical history significant for coronary artery disease status post stents 2008, chronic atrial fibrillation / flutter, status post ablation y endo in 2012, hypertension, diastolic heart failure, history of aortic and tricuspid regurgitation, who was brought into the [place] ER by the EMS status post code blue and STEMI alert was called on the patient on the scene. He was at a restaurant with his to order food. The said that he appeared ill, mumbled some words and collapsed. EMS arrived in less than 30 minutes and found the patient to be at [facility]. He was immediately defibrillated and went into PEA. It took approximately 20 minutes from the beginning of CPR to being intubated on the scene. On 04/11/2016 initiated and used hypothermia protocol achieved and then rewarming started on 04/12/2016 warming completed and the patient was examined off sedation. According to the note attempts to opens eyes off propofol did not track. No spontaneous movements. On the same day EEG was reported with frontal sharp transients but encephalopathy. On 04/23 remains intubated and sedated with propofol, opens eyes to verbal commands, moves all extremities. On 04/14/2016 Precedex held for 5 minutes before exam, the patient appeared to be waking up, more tracking however, but according to nurse he was not tracking. Moves extremities not purposefully. He was not answering. He was not following any commands. IMAGING Diagnostic imaging: Head CT scan without contrast on 04/10/2016 no evidence of acute infarct, hemorrhage or mass or edema. Stable mild ventricular enlargement. - EEG. 04/12/2016 moderate cephalopathy with mild transient periodic frontal sharp transients. No active seizures. Clinical correlation. PLAN 1. Neurological checks q. one hourly. 2. Repeat EEG. 3. Brain MRI without contrast. Thank you for opportunity to participate the care of your patient. Ondina Hernandez MD RGO/CLAUDETTE /4:35 PM /6:25 PM LISA
--- NOTE | 2016-04-14 22:53 | RADRPT ---
EXAM DATE/TIME: 04/14/2016 22:05 [facility] COMPARISON: No previous studies available for comparison. INDICATIONS : Anoxic brain injury MEDICAL HISTORY : Hypertension. Afib SURGICAL HISTORY : Cardiac stents in 2008, cardiac ablation ENCOUNTER: Initial ACUITY: 3 day PAIN SCORE: Nonresponsive. LOCATION: Bilateral cranial TECHNIQUE: Multiplanar, multisequence MRI of the brain was performed without contrast. FINDINGS: CEREBRUM: The ventricles are normal for age. No evidence of midline shift, mass lesion, hemorrha ge or acute infarction. No extraaxial fluid collections are seen. The pituitary gland and suprasell ar cistern are normal in configuration. WHITE MATTER: Minimal signal abnormalities are seen in the white matter. POSTERIOR FOSSA: The cerebellum and brainstem are intact. The 4th ventricle is midline. The cere bellopontine angle is unremarkable. The cerebellar tonsils are normal in position. DIFFUSION IMAGING: No focal areas of restricted diffusion are seen. No evidence of acute infarct ion. EXTRACRANIAL: The visualized portions of the orbits and paranasal sinuses are unremarkable. CONCLUSION: Minimal white matter ischemic changes. No significant abnormality. Bertin Mederos MD on April 14, 2016 at 22:49 Board Certified Radiologist. This report was verified electronically.
[2016-04-15] VITALS (20 sets, daily range): BP systolic 109–181; BP diastolic 57–82; PULSE 72–97; RESP 14–25; TEMP 97.8–101.6; O2SAT 91–98
[2016-04-15] MEDS: RESP: ALBUTEROL 2.5 MG/IPRATROPIUM 0.5 MG NEB (SCH) NEB ×4 (03:45→20:40)
[2016-04-15] MEDS: PIPERACIL-TAZO 3.375 GM PREMIX 50 ML IV SCH ×4 (06:06→22:11)
--- NOTE | 2016-04-15 07:55 | PD.CARD.PN ---
Subjective Subjective Remarks intubated, mechanically ventilated Objective Vital Signs / I&O Vital Signs Date Time Temp Pulse Resp B/P Pulse Ox O2 Delivery O2 Flow Rate FiO2 04/15/16 06:00 79 04/15/16 04:12 94 45 04/15/16 04:00 97.8 75 18 109/57 96 04/15/16 04:00 45 04/15/16 04:00 79 04/15/16 02:00 75 04/15/16 00:12 93 45 04/15/16 00:00 45 04/15/16 00:00 99.1 75 14 113/ 94 04/15/16 00:00 75 04/14/16 22:00 73 04/14/16 21:32 98 100 04/14/16 20:45 94 45 04/14/16 20:00 99.1 71 20 103/58 94 04/14/16 20:00 73 04/14/16 20:00 40 04/14/16 18:12 80 04/14/16 16:00 40 04/14/16 16:00 99.0 74 14 108/55 92 04/14/16 15:24 95 40 04/14/16 14:37 103 04/14/16 13:31 95 40 04/14/16 13:00 40 04/14/16 12:16 98 Face Tent 40 04/14/16 12:16 98 Mask 40 04/14/16 12:00 99.2 85 16 135/77 96 04/14/16 12:00 79 04/14/16 10:00 79 04/14/16 09:17 67 04/14/16 08:00 Mask 40 40 04/14/16 08:00 99.2 77 16 106/59 96 04/14/16 08:00 40 04/14/16 07:55 97 40 I/O 04/14/16 04/14/16 04/14/16 04/15/16 04/15/16 04/15/16 07:00 15:00 23:00 07:00 15:00 23:00 Intake Total 500 ml 48 ml 565 ml 530 ml Output Total 2520 ml 4760 ml 1065 ml 700 ml Balance -2020 ml -4712 ml -500 ml -170 ml IV Total 190 ml 48 ml 565 ml 390 ml Tube Feeding 270 ml 140 ml Tube Irrigant 40 ml Output Urine Total 2520 ml 4760 ml 1065 ml 700 ml Physical Exam GENERAL: Well-nourished, well-developed patient in no apparent distress. NECK: No JVD. No carotid bruit. CARDIOVASCULAR: Regular rate and rhythm. S1/S2 no murmur, rub, or gallop. RESPIRATORY: No accessory muscle use. Clear to auscultation. Breath sounds equal bilaterally. GASTROINTESTINAL: Abdomen soft, non-tender, nondistended. MUSCULOSKELETAL: Extremities without clubbing, cyanosis, or edema. Laboratory Laboratory Tests Test 04/14/16 15:26 Blood Gas Puncture Site RT RADIAL Blood Gas Patient Temperature 98.6 Blood Gas HCO3 28 mmol/L Blood Gas Base Excess 4.2 mmol/L Blood Gas Oxygen Saturation 94 % Arterial Blood pH 7.44 Arterial Blood Partial 42 mmHg Pressure CO2 Arterial Blood Partial 83 mmHg Pressure O2 Arterial Blood Oxygen Content 19.8 Vol % Arterial Blood 1.7 % Carboxyhemoglobin Arterial Blood Methemoglobin 1.0 % Blood Gas Hemoglobin 15.0 G/DL Oxygen Delivery Device VENTILATOR Blood Gas Ventilator Setting A/C 500/14/5PEEP Blood Gas Inspired Oxygen 40 % Assessment and Plan Problem List: (1) Cardiac arrest (2) Ventricular fibrillation (3) Atrial fibrillation with rapid ventricular response Assessment and Plan His neurological status has not changed, Neurology on board for anoxic brain injury Currently intubated and unresponsive CT head neg. Troponins elevated tele reviewed, NSR. Echo: reduced EF 30-35%, diffuse hypokinesis, PA pressure 67 mmHg Ugo Christine Apr 15, 2016 07:55
[2016-04-15 08:06] LABS: INTERNATIONAL NORMALIZED RATIO 1.3 RATIO; PROTHROMBIN TIME - PATIENT 15.1 SEC (9.8-11.6)
--- NOTE | 2016-04-15 09:17 | HHI.CCPN ---
Subjective Remarks/Hospital Course Patient is an 80 year-old male with past medical history significant for coronary artery disease status post stents in 2008, chronic atrial fibrillation/ flutter status post ablation by Dr. Murrieat in 2012, hypertension, diastolic heart failure, history of aortic and tricuspid regurgitation. He was brought in to the [place] ER by EMS status post CODE BLUE, and STEMI alert called on the patient on scene. [email or web address] with his about to order food when he suddenly appeared ill, mumbled some words and collapsed. EMS arrived in less than 5 minutes and found patient to be in ventricular fibrillation, he was immediately defibrillated and patient went into PEA. ACLS protocol was followed and it took approximately 20 minutes from the beginning of CPR to gain spontaneous circulation. Patient remained comatose after ROSC and was intubated with LMA on scene. Endotracheally intubated in ER. Case was discussed with Dr. Capellan he did not think patient meets STEMI criteria. EKG showed incomplete left bundle branch block and frequent PVCs. Cardiac enzymes are pending at this time. I was contacted for admission and consideration of induced hypothermia. I evaluated the patient in the ED. Patient had received 20 mg of IV etomidate and 100 mg of succinylcholine at 2:01 PM, I examined him at 2:50 PM approximately 45 minutes after these medications were given. Patient is spontaneously breathing above the vent even though comatose. Pupils are 5 mm briskly reactive bilaterally. Patient has no purposeful movements but he does slightly withdraw bilateral upper extremities to central pain. In discussion with Dr. capellan and family (patient's and son), decision was made to place patient on induced hypothermia for neuro protection after cardiac arrest. Patient was emergently moved to the CAT scan, CT of the head was found to be negative, he was then moved to the ICU and I placed the right femoral heat exchange catheter. Patient will be emergently started on induced hypothermia protocol SUBJ 04/11/16: Initiated on induced hypothermia yesterday, achieved target temperature at 11 PM, rewarming restarted 11 PM today. Patient currently on 2 mics per minute of Levophed for hypotension, dopamine was weaned off but restarted low-dose already his urine output. Neuromuscular paralysis limits neuro exam, pupils remain reactive. Troponin peak of 1.35, lactic acid was 3.7. INR 3.2 04/12/16: Rewarming completed at 7 AM today. Patient examined off sedation. Attempts to open eyes off propofol, did not track. No spontaneous extremity movements slightly withdraws upper extremity to central pain. Will check EEG 04/13/16: Remains intubated sedated with propofol. Opens eyes to verbal commands moves all extremities. Slowly improving neuro exam. Failed C Pap trial secondary to tachypnea. Spiking fever up to 101 04/14/16: Precedex held 5 minutes before exam. Patient appears to be waking up more, tracking. CXR continues to show pulmonary edema. Moves all extremities not following commands. Additional 2 mg Bumex given followed by Bumex 1 mg every 12 hours 04/15 Patient was extubated then reintubated yesterday for resp distress. Sedated with Diprivan and fentanyl. Afebrile. MRI brain last night showed minimal white matter ischemic changes. No significant abnormality. Objective Vital Signs Date Time Temp Pulse Resp B/P Pulse Ox O2 Delivery O2 Flow Rate FiO2 04/15/16 08:43 97 45 04/15/16 06:00 79 04/15/16 04:00 97.8 18 109/57 04/14/16 12:16 Face Tent Intake and Output 04/14/16 04/14/16 04/15/16 08:00 16:00 00:00 Intake Total 500 ml 48 ml 565 ml Output Total 3470 ml 3835 ml 990 ml Balance -2970 ml -3787 ml -425 ml Result Diagram: 04/14/16 0410 04/14/16 0410 Other Results Laboratory Tests Test 04/14/16 04/15/16 15:26 06:46 Blood Gas Puncture Site RT RADIAL Blood Gas Patient Temperature 98.6 Blood Gas HCO3 28 mmol/L Blood Gas Base Excess 4.2 mmol/L Blood Gas Oxygen Saturation 94 % Arterial Blood pH 7.44 Arterial Blood Partial 42 mmHg Pressure CO2 Arterial Blood Partial 83 mmHg Pressure O2 Arterial Blood Oxygen Content 19.8 Vol % Arterial Blood 1.7 % Carboxyhemoglobin Arterial Blood Methemoglobin 1.0 % Blood Gas Hemoglobin 15.0 G/DL Oxygen Delivery Device VENTILATOR Blood Gas Ventilator Setting A/C 500/14/5PEEP Blood Gas Inspired Oxygen 40 % Prothrombin Time 15.1 SEC Prothromb Time International 1.3 RATIO Ratio Imaging Last Impressions Chest X-Ray 04/14/16 0600 Signed Impressions: Service Date/Time: Thursday, April 14, 2016 02:47 - CONCLUSION: Bilateral perihilar and lower lung zone interstitial opacity remains present and could represent pulmonary edema. The small left pleural effusion documented on the prior study is not seen today. Rick Bejarano MD Brain MRI 04/14/16 0000 Signed Impressions: Service Date/Time: Thursday, April 14, 2016 22:05 - CONCLUSION: Minimal white matter ischemic changes. No significant abnormality. Bertin Mederos MD Head CT 04/10/16 0000 Signed Impressions: Service Date/Time: Sunday, April 10, 2016 15:15 - CONCLUSION: Stable appearance of the brain without evidence of acute infarct, hemorrhage, mass or edema. Stable mild ventricular enlargement.. Aman Galarza MD Objective Remarks GENERAL: Patient is 80 yo intubated and sedated SKIN: Warm and dry. HEAD: Normocephalic. EYES: No scleral icterus. No injection or drainage. NECK: Supple, trachea midline. No JVD or lymphadenopathy. CARDIOVASCULAR: Regular rate and rhythm without murmurs, gallops, or rubs. RESPIRATORY: Breath sounds equal bilaterally. No accessory muscle use. GASTROINTESTINAL: Abdomen soft, non-tender, nondistended. MUSCULOSKELETAL: No cyanosis, or edema. Neuro: sedated Date of Insertion: Apr 10, 2016 Side: Right Location: Femoral A/P Assessment and Plan Assessment and plan NEURO: Possible anoxic brain injury following cardiac arrest -Completed induced hypothermia per protocol at 0700 AM 04/12/16 -EEG moderate encephalopathy, no seizures -On Diprivan and Fentanyl infusion for sedation. Daily sedation vacation. -MRI brain 04/14: minimal white matter ischemic changes. No significant abnormality. RESP: Acute respiratory failure from failure to protect airway Aspiration pneumonitis History of obstructive sleep apnea -Continue with vent support keep sat >92% -DuoNeb every 6 hours when necessary, ventilator bundle -Empiric Zosyn for probable aspiration pneumonitis -SBT daily as abdiel CV: Witnessed V FIB arrest followed by PEA Probable NSTEMI vs Demand ischemia Pulmonary edema Ischemic cardiomyopathy Lactic acidosis Atrial fibrillation with RVR History of CAD with stents Hx of atrial fibrillation ablation -Witnessed V. fib arrest followed by PEA following defibrillation, completed induced hypothermia -Cardiology Dr. Capellan, unlikely to be a STEMI. Ischemic workup if sufficient neurological improvement -Troponin peaked at 1.35, continue aspirin. INR subtherapeutic Coumadin dosing by pharmacy -2-D echo 04/10 EF 30-35%, diffuse hypokinesis PASP 67, mild tricuspid and aortic regurgitation -On Bumex 1 mg IV q12 with KCL supplementation GI: -Tube feeds with Jevity advance to goal rate 45ml/hr - IV Protonix for GI prophylaxis : -Monitor renal function, I/O's, electrolytes replacement per protocol. -Bumex 1mg q12 ID: Aspiration pneumonitis -Previous cultures negative, -Empirically treated with Zosyn 3.375 g every 6 hours, give single dose of vancomycin 04/13/16 HEME: Chronic Coumadin use -Monitor CBC CMP INR, 1.3 -Consulted pharmacy for Coumadin dosing ENDO: -Electrolyte replacement per protocol -Sliding-scale insulin PROPH: -Bilateral lower extremity SCDs. INR 1.3, Coumadin dosing per pharmacy. Protonix 40 mg IV daily LINES: -Heat exchange catheter placed right femoral vein-removed 04/13/16 Palliative care eval to asses with goals of care CC time 30 min excluding procedures Radha Srinivasan MD Apr 15, 2016 09:17 Radha Srinivasan MD Apr 15, 2016 09:17
[2016-04-15 10:21] LABS: AUTOMATED NEUTROPHIL # 8.2 TH/MM3 (1.8-7.7); BASOPHIL # 0.1 TH/MM3 (0-0.2); BASOPHIL % 0.7 % (0.0-2.0); EOSINOPHIL # 0.2 TH/MM3 (0-0.4); EOSINOPHIL % 1.7 % (0.0-4.0); HEMATOCRIT 43.4 % (39.0-51.0); HEMO FLAGS DIFF FINAL; LYMPH % 6.6 % (9.0-44.0); LYMPHOCYTE # 0.7 TH/MM3 (1.0-4.8); MEAN CELL VOLUME 90.5 FL (80.0-100.0); MEAN CORPUSCULAR HEMOGLOBIN 30.5 PG (27.0-34.0); MEAN CORPUSCULAR HGB CONC 33.7 % (32.0-36.0); MONO % 8.9 % (0.0-8.0); NEUT % 82.1 % (16.0-70.0); PLATELET COUNT 193 TH/MM3 (150-450); RED BLOOD COUNT 4.79 MIL/MM3 (4.50-5.90); RED CELL DISTRIBUTION WIDTH 14.4 % (11.6-17.2); WHITE BLOOD COUNT 9.9 TH/MM3 (4.0-11.0)
[2016-04-15] MEDS: BUMETANIDE INJ 1 MG/4 ML VIAL IV PUSH SCH ×2 (10:25→22:11)
[2016-04-15] MEDS: CHLORHEXIDINE 0.12% (ORAL KIT) 15 ML CUP MT SCH ×2 (10:25→22:12)
[2016-04-15] MEDS: ASPIRIN 81 MG CHEW TAB CHEW SCH (10:25)
[2016-04-15] MEDS: PANTOPRAZOLE SODIUM 40 MG VIAL IV SCH (10:26)
[2016-04-15 10:41] LABS: ALT (GPT) 42 U/L (12-78); ANION GAP 7 MEQ/L (5-15); AST (GOT) 34 U/L (15-37); BLOOD UREA NITROGEN 17 MG/DL (7-18); CHLORIDE 109 MEQ/L (98-107); GLOMERULAR FILTRATION RATE 72 ML/MIN (>89); MAGNESIUM 2.1 MG/DL (1.5-2.5); POTASSIUM 3.6 MEQ/L (3.5-5.1); SODIUM (NA) 147 MEQ/L (136-145)
[2016-04-15 10:44] LABS: ALKALINE PHOSPHATASE 48 U/L (45-117); TOTAL BILIRUBIN ADULT 1.4 MG/DL (0.2-1.0)
[2016-04-15] MEDS ORDERED: PARO10TA2 PO (12:28)
[2016-04-15] MEDS: fentaNYL DRIP 250 ML IV SCH (16:09)
[2016-04-15] MEDS: WARFARIN SOD 4 MG TAB PO SCH (16:09)
[2016-04-15 17:22] LABS: BACTERIA, URINE OCC /hpf; BLOOD, URINE LARGE (NEG); GLUCOSE,URINE NEG (NEG); HYALINE CAST, URINE 7 /lpf (RARE); KETONE, URINE TRACE mg/dL (NEG); MUCUS URINE FEW /lpf (OCC); NITRITE,URINE NEG (NEG); PH, URINE 5.5 (5.0-8.5); SQUAMOUS EPITHELIAL CELL URINE 1 /hpf (0-5)
[2016-04-15 17:25] LABS: COMMENT (UR) CATH-CULTURE IND; CULTURE IF INDICATED CATH CULTURE IND; URINE COLOR LIGHT-ORANGE (YELLW/STRAW)
[2016-04-15] MEDS: LACTULOSE SYRUP 20 GM/30 ML CUP PO SCH ×2 (17:44→22:11)
[2016-04-15] MEDS: ACETAMINOPHEN 325 MG TAB PO PRN (17:44)
[2016-04-15] MEDS: SENNOSIDES SYRUP 8.8 MG/5 ML CUP PO SCH (17:44)
--- NOTE | 2016-04-15 20:30 | MG ---
cc: ZACHARY ZAVALA Lab No: [id number] Date: 04/15/16 Age: 80 Sex: M Race: Fentanyl, code blue, STEMI. Migraines, a-fib, Coumadin. Diffuse 5 Hz slowing is seen consistent with a moderate diffuse encephalopathy. There is no focal abnormalities. No epileptiform or seizure activity is noted. Photic stimulation was performed without significant posterior driving. Hyperventilation was not performed. IMPRESSION Diffuse theta slowing consistent with a mild to moderate diffuse encephalopathy. No focal abnormalities are noted. No seizure activity was seen. MD AYALA York/BREONNA /7:04 PM /8:26 PM
[2016-04-15] MEDS: CHLORHEXIDINE GLUCONATE 2 % 1 PACK (2 CLOTHS) TOP SCH (22:12)
[2016-04-15] MEDS: SODIUM CHLORIDE 0.9% FLUSH 5 ML FLUSH IVF SCH (22:13)
[2016-04-15] MEDS ORDERED: SODIUM CHLOR 0.9% 1000 ML INJ 1,000 ML IV SCH (23:00)
[2016-04-16] VITALS (18 sets, daily range): BP systolic 96–146; BP diastolic 53–66; PULSE 67–95; RESP 14–19; TEMP 99–101.6; O2SAT 81–98
--- NOTE | 2016-04-16 00:41 | RADRPT ---
EXAM DATE/TIME: 04/16/2016 00:06 [place] COMPARISON: No previous studies available for comparison. INDICATIONS : Abdominal pain. MEDICAL HISTORY : Myocardial infarction. SURGICAL HISTORY : None. ENCOUNTER: Subsequent ACUITY: 1 week PAIN SCORE: Non-responsive. LOCATION: Entire Abdomen FINDINGS: Supine view of the abdomen was performed. The abdominal bowel gas pattern is normal. No abnormal ma sses, calcifications, or organomegaly is seen. The osseous structures are unremarkable. CONCLUSION: No acute disease. Néstor Marquez MD on April 16, 2016 at 0:39 Board Certified Radiologist. This report was verified electronically.
[2016-04-16] MEDS: RESP: ALBUTEROL 2.5 MG/IPRATROPIUM 0.5 MG NEB (SCH) NEB ×4 (03:57→21:00)
[2016-04-16] MEDS: CHLORHEXIDINE GLUCONATE 2 % 1 PACK (2 CLOTHS) TOP SCH (04:00)
[2016-04-16] MEDS: fentaNYL DRIP 250 ML IV SCH (04:11)
[2016-04-16] MEDS: PIPERACIL-TAZO 3.375 GM PREMIX 50 ML IV SCH ×4 (04:11→23:39)
[2016-04-16] MEDS: SODIUM CHLORIDE 0.9% FLUSH 5 ML FLUSH IVF SCH ×3 (04:12→23:39)
[2016-04-16 07:14] LABS: AUTOMATED NEUTROPHIL # 6.4 TH/MM3 (1.8-7.7); BASOPHIL % 0.5 % (0.0-2.0); EOSINOPHIL # 0.1 TH/MM3 (0-0.4); EOSINOPHIL % 1.2 % (0.0-4.0); HEMATOCRIT 41.5 % (39.0-51.0); HEMO FLAGS DIFF FINAL; LYMPH % 5.3 % (9.0-44.0); LYMPHOCYTE # 0.4 TH/MM3 (1.0-4.8); MEAN CELL VOLUME 90.5 FL (80.0-100.0); MEAN CORPUSCULAR HEMOGLOBIN 30.5 PG (27.0-34.0); MEAN CORPUSCULAR HGB CONC 33.7 % (32.0-36.0); MONO % 12.6 % (0.0-8.0); NEUT % 80.4 % (16.0-70.0); PLATELET COUNT 198 TH/MM3 (150-450); RED BLOOD COUNT 4.59 MIL/MM3 (4.50-5.90); RED CELL DISTRIBUTION WIDTH 14.1 % (11.6-17.2); WHITE BLOOD COUNT 7.9 TH/MM3 (4.0-11.0)
[2016-04-16 07:16] LABS: INTERNATIONAL NORMALIZED RATIO 1.4 RATIO; PROTHROMBIN TIME - PATIENT 15.9 SEC (9.8-11.6)
[2016-04-16 07:54] LABS: ANION GAP 6 MEQ/L (5-15); AST (GOT) 29 U/L (15-37); BICARBONATE 32.9 MEQ/L (21.0-32.0); BLOOD UREA NITROGEN 18 MG/DL (7-18); CHLORIDE 107 MEQ/L (98-107); GLOMERULAR FILTRATION RATE 65 ML/MIN (>89); POTASSIUM 3.4 MEQ/L (3.5-5.1); SODIUM (NA) 146 MEQ/L (136-145)
[2016-04-16 07:58] LABS: ALKALINE PHOSPHATASE 47 U/L (45-117); ALT (GPT) 34 U/L (12-78); TOTAL BILIRUBIN ADULT 2.8 MG/DL (0.2-1.0)
--- NOTE | 2016-04-16 08:33 | PD.CARD.PN ---
Subjective Subjective Remarks intubated, mechanically ventilated (Ugo Christine) Objective Vital Signs / I&O Vital Signs Date Time Temp Pulse Resp B/P Pulse Ox O2 Delivery O2 Flow Rate FiO2 04/16/16 06:00 83 04/16/16 04:20 96 45 04/16/16 04:00 45 04/16/16 04:00 85 04/16/16 04:00 99.8 85 14 146/63 96 04/16/16 02:00 86 04/16/16 01:20 92 45 04/16/16 00:00 99.9 95 14 146/66 95 04/16/16 00:00 45 04/16/16 00:00 95 04/15/16 22:12 96 45 04/15/16 22:00 81 04/15/16 20:00 85 04/15/16 20:00 45 04/15/16 20:00 99.7 85 15 145/69 95 04/15/16 19:20 98 45 04/15/16 18:00 94 04/15/16 16:00 97 04/15/16 16:00 45 04/15/16 16:00 101.6 97 25 181/82 91 04/15/16 15:55 94 45 04/15/16 14:40 95 45 04/15/16 14:40 45 04/15/16 14:00 79 04/15/16 12:00 81 04/15/16 12:00 99.1 81 20 119/72 92 04/15/16 12:00 45 04/15/16 11:46 93 45 04/15/16 10:00 90 04/15/16 08:43 97 45 I/O 04/15/16 04/15/16 04/15/16 04/16/16 04/16/16 04/16/16 07:00 15:00 23:00 07:00 15:00 23:00 Intake Total 530 ml 592 ml 428 ml 681 ml Output Total 700 ml 1000 ml 700.0 ml 800 ml Balance -170 ml -408 ml -272.0 ml -119 ml Intake Oral 0 ml IV Total 390 ml 344 ml 204 ml 561 ml Tube Feeding 140 ml 248 ml 144 ml Other 80 ml 120 ml Output Urine Total 700 ml 1000 ml 300 ml 800 ml Tube Feeding Residual Discard 400.0 ml Physical Exam GENERAL: Well-nourished, well-developed patient in no apparent distress. NECK: No JVD. No carotid bruit. CARDIOVASCULAR: Regular rate and rhythm. S1/S2 no murmur, rub, or gallop. RESPIRATORY: No accessory muscle use. Clear to auscultation. Breath sounds equal bilaterally. GASTROINTESTINAL: Abdomen soft, non-tender, nondistended. MUSCULOSKELETAL: Extremities without clubbing, cyanosis, or edema. Laboratory Laboratory Tests Test 04/15/16 04/15/16 04/16/16 04/16/16 09:55 16:20 05:05 05:35 White Blood Count 9.9 TH/MM3 Red Blood Count 4.79 MIL/MM3 Hemoglobin 14.6 GM/DL Hematocrit 43.4 % Mean Corpuscular Volume 90.5 FL Mean Corpuscular Hemoglobin 30.5 PG Mean Corpuscular Hemoglobin 33.7 % Concent Red Cell Distribution Width 14.4 % Platelet Count 193 TH/MM3 Mean Platelet Volume 8.6 FL Neutrophils (%) (Auto) 82.1 % Lymphocytes (%) (Auto) 6.6 % Monocytes (%) (Auto) 8.9 % Eosinophils (%) (Auto) 1.7 % Basophils (%) (Auto) 0.7 % Neutrophils # (Auto) 8.2 TH/MM3 Lymphocytes # (Auto) 0.7 TH/MM3 Monocytes # (Auto) 0.9 TH/MM3 Eosinophils # (Auto) 0.2 TH/MM3 Basophils # (Auto) 0.1 TH/MM3 CBC Comment DIFF FINAL Differential Comment Sodium Level 147 MEQ/L 146 MEQ/L Potassium Level 3.6 MEQ/L 3.4 MEQ/L Chloride Level 109 MEQ/L 107 MEQ/L Carbon Dioxide Level 31.0 MEQ/L 32.9 MEQ/L Anion Gap 7 MEQ/L 6 MEQ/L Blood Urea Nitrogen 17 MG/DL 18 MG/DL Creatinine 1.00 MG/DL 1.08 MG/DL Estimat Glomerular Filtration 72 ML/MIN 65 ML/MIN Rate Random Glucose 105 MG/DL 123 MG/DL Calcium Level 8.5 MG/DL 8.7 MG/DL Phosphorus Level 3.4 MG/DL Magnesium Level 2.1 MG/DL Total Bilirubin 1.4 MG/DL 2.8 MG/DL Aspartate Amino Transf 34 U/L 29 U/L (AST/SGOT) Alanine Aminotransferase 42 U/L 34 U/L (ALT/SGPT) Alkaline Phosphatase 48 U/L 47 U/L Total Protein 6.9 GM/DL 7.2 GM/DL Albumin 3.0 GM/DL 2.9 GM/DL Urine Color LIGHT-ORANGE Urine Turbidity HAZY Urine pH 5.5 Urine Specific [place] 1.026 Urine Protein 100 mg/dL Urine Glucose (UA) NEG mg/dL Urine Ketones TRACE mg/dL Urine Occult Blood LARGE Urine Nitrite NEG Urine Bilirubin NEG Urine Urobilinogen LESS THAN 2.0 MG/DL Urine Leukocyte Esterase SMALL Urine RBC /hpf Urine WBC 15 /hpf Urine Squamous Epithelial 1 /hpf Cells Urine Bacteria OCC /hpf Urine Hyaline Casts 7 /lpf Urine Mucus FEW /lpf Microscopic Urinalysis Comment CATH-CULTURE IND Prothrombin Time 15.9 SEC Prothromb Time International 1.4 RATIO Ratio Test 04/16/16 05:55 White Blood Count 7.9 TH/MM3 Red Blood Count 4.59 MIL/MM3 Hemoglobin 14.0 GM/DL Hematocrit 41.5 % Mean Corpuscular Volume 90.5 FL Mean Corpuscular Hemoglobin 30.5 PG Mean Corpuscular Hemoglobin 33.7 % Concent Red Cell Distribution Width 14.1 % Platelet Count 198 TH/MM3 Mean Platelet Volume 9.3 FL Neutrophils (%) (Auto) 80.4 % Lymphocytes (%) (Auto) 5.3 % Monocytes (%) (Auto) 12.6 % Eosinophils (%) (Auto) 1.2 % Basophils (%) (Auto) 0.5 % Neutrophils # (Auto) 6.4 TH/MM3 Lymphocytes # (Auto) 0.4 TH/MM3 Monocytes # (Auto) 1.0 TH/MM3 Eosinophils # (Auto) 0.1 TH/MM3 Basophils # (Auto) 0.0 TH/MM3 CBC Comment DIFF FINAL Differential Comment (Ugo Christine) Assessment and Plan Problem List: (1) Cardiac arrest (2) Ventricular fibrillation (3) Atrial fibrillation with rapid ventricular response Assessment and Plan His neurological status has not changed, Neurology on board for anoxic brain injury Currently intubated and unresponsive CT head neg. Troponins elevated tele reviewed, NSR. Echo: reduced EF 30-35%, diffuse hypokinesis, PA pressure 67 mmHg continue supportive care (Ugo Christine) Assessment and Plan hemodynamically stable. no arrhythmias. BP good. extubated/reintubated. moving extremities and opening eyes, but not following commands. EEG - moderate encephalopathy. echo shows cardiomyopathy EF 35%. Urine concentrated. Na/Cl elevated. pulmonary edema improved. LE edema improved. Decrease Bumex IV once daily. upon neurologic recovery, he will need further workup for etiology to his cardiac arrest which may involve LHC. DC coumadin. Troponin minimally elevated likely due to arrest, not [place]. lovenox DVT prophylaxis (Celestino Encarnacion MD) Ugo Christine Apr 16, 2016 08:33 Celestino Encarnacion MD Apr 16, 2016 10:47
--- NOTE | 2016-04-16 08:43 | HHI.CCPN ---
Subjective Remarks/Hospital Course Patient is an 80 year-old male with past medical history significant for coronary artery disease status post stents in 2008, chronic atrial fibrillation/ flutter status post ablation by Dr. Murrieta in 2012, hypertension, diastolic heart failure, history of aortic and tricuspid regurgitation. He was brought in to the [place] ER by EMS status post CODE BLUE, and STEMI alert called on the patient on scene. He was at [facility] with his about to order food when he suddenly appeared ill, mumbled some words and collapsed. EMS arrived in less than 5 minutes and found patient to be in ventricular fibrillation, he was immediately defibrillated and patient went into PEA. ACLS protocol was followed and it took approximately 20 minutes from the beginning of CPR to gain spontaneous circulation. Patient remained comatose after ROSC and was intubated with LMA on scene. Endotracheally intubated in ER. Case was discussed with Dr. Capellan he did not think patient meets STEMI criteria. EKG showed incomplete left bundle branch block and frequent PVCs. Cardiac enzymes are pending at this time. I was contacted for admission and consideration of induced hypothermia. I evaluated the patient in the ED. Patient had received 20 mg of IV etomidate and 100 mg of succinylcholine at 2:01 PM, I examined him at 2:50 PM approximately 45 minutes after these medications were given. Patient is spontaneously breathing above the vent even though comatose. Pupils are 5 mm briskly reactive bilaterally. Patient has no purposeful movements but he does slightly withdraw bilateral upper extremities to central pain. In discussion with Dr. capellan and family (patient's and son), decision was made to place patient on induced hypothermia for neuro protection after cardiac arrest. Patient was emergently moved to the CAT scan, CT of the head was found to be negative, he was then moved to the ICU and I placed the right femoral heat exchange catheter. Patient will be emergently started on induced hypothermia protocol SUBJ 04/11/16: Initiated on induced hypothermia yesterday, achieved target temperature at 11 PM, rewarming restarted 11 PM today. Patient currently on 2 mics per minute of Levophed for hypotension, dopamine was weaned off but restarted low-dose already his urine output. Neuromuscular paralysis limits neuro exam, pupils remain reactive. Troponin peak of 1.35, lactic acid was 3.7. INR 3.2 04/12/16: Rewarming completed at 7 AM today. Patient examined off sedation. Attempts to open eyes off propofol, did not track. No spontaneous extremity movements slightly withdraws upper extremity to central pain. Will check EEG 04/13/16: Remains intubated sedated with propofol. Opens eyes to verbal commands moves all extremities. Slowly improving neuro exam. Failed C Pap trial secondary to tachypnea. Spiking fever up to 101 04/14/16: Precedex held 5 minutes before exam. Patient appears to be waking up more, tracking. CXR continues to show pulmonary edema. Moves all extremities not following commands. Additional 2 mg Bumex given followed by Bumex 1 mg every 12 hours 04/15 Patient was extubated then reintubated yesterday for resp distress. Sedated with Diprivan and fentanyl. Afebrile. MRI brain last night showed minimal white matter ischemic changes. No significant abnormality. 04/16 Patient remains sedated with Fentanyl and intubated. Off Diprivan. TF held overnight for high residuals. Off Diprivan drip. Objective Vital Signs Date Time Temp Pulse Resp B/P Pulse Ox O2 Delivery O2 Flow Rate FiO2 04/16/16 06:00 83 04/16/16 04:20 96 45 04/16/16 04:00 99.8 14 146/63 04/14/16 12:16 Face Tent Intake and Output 04/15/16 04/15/16 04/16/16 08:00 16:00 00:00 Intake Total 530 ml 592 ml 428 ml Output Total 700 ml 1000 ml 700.0 ml Balance -170 ml -408 ml -272.0 ml Result Diagram: 04/16/16 0555 04/16/16 0535 Other Results Laboratory Tests Test 04/15/16 04/15/16 04/16/16 04/16/16 09:55 16:20 05:05 05:35 White Blood Count 9.9 TH/MM3 Red Blood Count 4.79 MIL/MM3 Hemoglobin 14.6 GM/DL Hematocrit 43.4 % Mean Corpuscular Volume 90.5 FL Mean Corpuscular Hemoglobin 30.5 PG Mean Corpuscular Hemoglobin 33.7 % Concent Red Cell Distribution Width 14.4 % Platelet Count 193 TH/MM3 Mean Platelet Volume 8.6 FL Neutrophils (%) (Auto) 82.1 % Lymphocytes (%) (Auto) 6.6 % Monocytes (%) (Auto) 8.9 % Eosinophils (%) (Auto) 1.7 % Basophils (%) (Auto) 0.7 % Neutrophils # (Auto) 8.2 TH/MM3 Lymphocytes # (Auto) 0.7 TH/MM3 Monocytes # (Auto) 0.9 TH/MM3 Eosinophils # (Auto) 0.2 TH/MM3 Basophils # (Auto) 0.1 TH/MM3 CBC Comment DIFF FINAL Differential Comment Sodium Level 147 MEQ/L 146 MEQ/L Potassium Level 3.6 MEQ/L 3.4 MEQ/L Chloride Level 109 MEQ/L 107 MEQ/L Carbon Dioxide Level 31.0 MEQ/L 32.9 MEQ/L Anion Gap 7 MEQ/L 6 MEQ/L Blood Urea Nitrogen 17 MG/DL 18 MG/DL Creatinine 1.00 MG/DL 1.08 MG/DL Estimat Glomerular Filtration 72 ML/MIN 65 ML/MIN Rate Random Glucose 105 MG/DL 123 MG/DL Calcium Level 8.5 MG/DL 8.7 MG/DL Phosphorus Level 3.4 MG/DL Magnesium Level 2.1 MG/DL Total Bilirubin 1.4 MG/DL 2.8 MG/DL Aspartate Amino Transf 34 U/L 29 U/L (AST/SGOT) Alanine Aminotransferase 42 U/L 34 U/L (ALT/SGPT) Alkaline Phosphatase 48 U/L 47 U/L Total Protein 6.9 GM/DL 7.2 GM/DL Albumin 3.0 GM/DL 2.9 GM/DL Urine Color LIGHT-ORANGE Urine Turbidity HAZY Urine pH 5.5 Urine Specific [place] 1.026 Urine Protein 100 mg/dL Urine Glucose (UA) NEG mg/dL Urine Ketones TRACE mg/dL Urine Occult Blood LARGE Urine Nitrite NEG Urine Bilirubin NEG Urine Urobilinogen LESS THAN 2.0 MG/DL Urine Leukocyte Esterase SMALL Urine RBC /hpf Urine WBC 15 /hpf Urine Squamous Epithelial 1 /hpf Cells Urine Bacteria OCC /hpf Urine Hyaline Casts 7 /lpf Urine Mucus FEW /lpf Microscopic Urinalysis Comment CATH-CULTURE IND Prothrombin Time 15.9 SEC Prothromb Time International 1.4 RATIO Ratio Test 04/16/16 05:55 White Blood Count 7.9 TH/MM3 Red Blood Count 4.59 MIL/MM3 Hemoglobin 14.0 GM/DL Hematocrit 41.5 % Mean Corpuscular Volume 90.5 FL Mean Corpuscular Hemoglobin 30.5 PG Mean Corpuscular Hemoglobin 33.7 % Concent Red Cell Distribution Width 14.1 % Platelet Count 198 TH/MM3 Mean Platelet Volume 9.3 FL Neutrophils (%) (Auto) 80.4 % Lymphocytes (%) (Auto) 5.3 % Monocytes (%) (Auto) 12.6 % Eosinophils (%) (Auto) 1.2 % Basophils (%) (Auto) 0.5 % Neutrophils # (Auto) 6.4 TH/MM3 Lymphocytes # (Auto) 0.4 TH/MM3 Monocytes # (Auto) 1.0 TH/MM3 Eosinophils # (Auto) 0.1 TH/MM3 Basophils # (Auto) 0.0 TH/MM3 CBC Comment DIFF FINAL Differential Comment Imaging Last Impressions Abdomen X-Ray 04/15/16 0000 Signed Impressions: Service Date/Time: Saturday, April 16, 2016 00:06 - CONCLUSION: No acute disease. Néstor Marquez MD Chest X-Ray 04/14/16 0600 Signed Impressions: Service Date/Time: Thursday, April 14, 2016 02:47 - CONCLUSION: Bilateral perihilar and lower lung zone interstitial opacity remains present and could represent pulmonary edema. The small left pleural effusion documented on the prior study is not seen today. Rick Bejarano MD Brain MRI 04/14/16 0000 Signed Impressions: Service Date/Time: Thursday, April 14, 2016 22:05 - CONCLUSION: Minimal white matter ischemic changes. No significant abnormality. Bertin Mederos MD Head CT 04/10/16 0000 Signed Impressions: Service Date/Time: Sunday, April 10, 2016 15:15 - CONCLUSION: Stable appearance of the brain without evidence of acute infarct, hemorrhage, mass or edema. Stable mild ventricular enlargement.. Aman Galarza MD Objective Remarks GENERAL: Patient is 80 yo intubated and sedated SKIN: Warm and dry. HEAD: Normocephalic. EYES: No scleral icterus. No injection or drainage. NECK: Supple, trachea midline. No JVD or lymphadenopathy. CARDIOVASCULAR: Regular rate and rhythm without murmurs, gallops, or rubs. RESPIRATORY: Breath sounds equal bilaterally. No accessory muscle use. GASTROINTESTINAL: Abdomen soft, non-tender, nondistended. MUSCULOSKELETAL: No cyanosis, or edema. Neuro: sedated Date of Insertion: Apr 10, 2016 Side: Right Location: Femoral A/P Assessment and Plan Assessment and plan NEURO: Possible anoxic brain injury following cardiac arrest -Completed induced hypothermia per protocol at 0700 AM 04/12/16 -EEG moderate encephalopathy, no seizures -On Fentanyl infusion for sedation. Daily sedation vacation. -MRI brain 04/14: minimal white matter ischemic changes. No significant abnormality. RESP: Acute respiratory failure from failure to protect airway Aspiration pneumonitis History of obstructive sleep apnea -Continue with vent support keep sat >92% -DuoNeb every 6 hours when necessary, ventilator bundle -Empiric Zosyn for probable aspiration pneumonitis -SBT daily as abdiel CV: Witnessed V FIB arrest followed by PEA Probable NSTEMI vs [place] ischemia Pulmonary edema Ischemic cardiomyopathy Lactic acidosis Atrial fibrillation with RVR History of CAD with stents Hx of atrial fibrillation ablation -Witnessed V. fib arrest followed by PEA following defibrillation, completed induced hypothermia -Cardiology Dr. Capellan, unlikely to be a STEMI. Ischemic workup if sufficient neurological improvement -Troponin peaked at 1.35, continue aspirin. INR subtherapeutic Coumadin dosing by pharmacy -2-D echo 04/10 EF 30-35%, diffuse hypokinesis PASP 67, mild tricuspid and aortic regurgitation -On Bumex 1 mg IV q12 with KCL supplementation GI: -Restart Tube feeds with Jevity advance to goal rate 45ml/hr as abdiel -KUB abdomen : No acute disease - IV Protonix for GI prophylaxis -Continue with bowel regimen - On Senna, Lactulose, add Reglan. : -Monitor renal function, I/O's, electrolytes replacement per protocol. -Bumex 1mg q12 ID: Aspiration pneumonitis -Previous cultures negative, -Empirically treated with Zosyn 3.375 g every 6 hours, give single dose of vancomycin 04/13/16 HEME: Chronic Coumadin use -Monitor CBC CMP INR, 1.4 -Consulted pharmacy for Coumadin dosing ENDO: -Electrolyte replacement per protocol -Sliding-scale insulin PROPH: -Bilateral lower extremity SCDs. INR 1.4, Coumadin dosing per pharmacy. Protonix 40 mg IV daily LINES: -Heat exchange catheter placed right femoral vein-removed 04/13/16 Palliative care eval to asses with goals of care CC time 30 min excluding procedures Radha Srinivasan MD Apr 16, 2016 08:43
[2016-04-16] MEDS ORDERED: METOCLOPRAMIDE HCL 10 MG/2 ML VIAL IV PUSH PRN (08:45)
[2016-04-16] MEDS: BUMETANIDE INJ 1 MG/4 ML VIAL IV PUSH SCH (09:11)
[2016-04-16] MEDS: LACTULOSE SYRUP 20 GM/30 ML CUP PO SCH ×2 (09:11→23:39)
[2016-04-16] MEDS: SENNOSIDES SYRUP 8.8 MG/5 ML CUP PO SCH (09:11)
[2016-04-16] MEDS: ASPIRIN 81 MG CHEW TAB CHEW SCH (09:12)
[2016-04-16] MEDS: PANTOPRAZOLE SODIUM 40 MG VIAL IV SCH (09:12)
[2016-04-16] MEDS: CHLORHEXIDINE 0.12% (ORAL KIT) 15 ML CUP MT SCH ×2 (09:13→23:48)
[2016-04-16] MEDS ORDERED: HALOPERIDOL LACTATE 5 MG/ML AMP IV PUSH ONE (09:15)
[2016-04-16] MEDS: DEXMEDETOMIDINE INJ 50 ML IV SCH ×5 (10:35→23:49)
--- NOTE | 2016-04-16 11:38 | PD.CONS ---
Consult Service Palliative Care Consult Requested By Dr. Zarina MD. Primary Care Physician Zeinab Hou MD Reason for Consultation a. To assist with evaluation and management of symptoms including: shortness of breath and restlessness. b. To assist medical decision maker(s) with: better understanding of current medical conditions; weighing benefits/burdens of medical treatment options; making medical treatment decisions. HPI History of Present Illness Mr. Chin is an 80-year-old male with a medical history significant for atrial fibrillation, diastolic heart failure and prior MT who presented to the ED on 04/10/16 via EMS status post witnessed cardiac arrest. As per family, patient for a while has been complaining of increased shortness of breath. On this day, patient with family to a local restaurant where he complained of shortness of breath and chest discomfort, patient became unresponsive. EMS was called to is scene and patient was found and PEA arrest, CPR was started taking them a reported 20 minutes to get a rhythm. Upon ED arrival, patient was started on introduced hypothermia protocol which was completed on 04/12/16. Head CT on 04/18/16 negative for acute process. Echo completed on 04/10/16 reporting EF of 30-35%. EEG on 04/12/16 showing moderate encephalopathy. Patient was medically extubated on 04/14/16, however, required emergent reintubation secondary to respiratory distress. Neurology has been consulted, follow-up EEG showing mild to moderate diffuse encephalopathy but no seizure activity. MRI of the brain on 04/14/16 showing minimal white matter ischemic changes with no significant abnormality. Chest x- ray 1 04/14/16 showing bilateral interstitial opacity that could represent pulmonary edema. Patient remains intubated on mechanical ventilation. Palliative care has been consulted for further clarification of goals of care in the setting of patient's critical state and possible anoxic brain injury following cardiac arrest. Patient seen in ICU, sedated on Precedex. Ongoing CPAP trials, patient appears calm. Met with patient's Mere and daughter Brinda at bedside. Medical update provided. Review events leading to his hospitalizations, current medical treatment and plan. Reviewed patient's current respiratory neurological state. Discussed recommendations from attending and cardiology to allow additional time for neurological improvement. Reviewed current CPAP trials and indications for medical extubation. Discussed that patient remains critically ill and at high risk of further decline, complications and . Encouraged family to discuss CODE STATUS. Review CPR in the setting of patient's already debilitated condition and questionable anoxic brain injury. Family verbalized feeling optimistic about his neurological recovery, however, aware patient's critical condition. Family verbalized appreciation for this visit. Ongoing emotional support and active listening provided. . . Function/Cognitive Trajectory Patient fully independent with all ADLs prior to this hospitalization. No cognitive decline reported. No assistive devices needed. . Review of Systems ROS Limitations: Clinical Condition, Intubated Constitutional: DENIES: Fatigue, Fever, Weight loss Endocrine: DENIES: Heat/cold intolerance Eyes: DENIES: Blurred vision Ears, nose, mouth, throat: DENIES: Hearing loss Respiratory: COMPLAINS OF: Shortness of breath, DENIES: Cough Cardiovascular: COMPLAINS OF: Chest pain Gastrointestinal: DENIES: Abdominal pain, Constipation, Diarrhea, Nausea Integumentary: DENIES: Abnormal pigmentation Hematologic/Lymphatics: DENIES: Bruising Immunologic/Allergic: DENIES: Eczema Neurologic: DENIES: Abnormal gait Psychiatric: DENIES: Anxiety, Depression Other ROS: Limited ROS secondary to clinical condition, patient intubated on mechanical ventilation. ROS obtained from medical records, patient's family and clinical observation. Past Family Social History Coded Allergies: No Known Allergies (Verified , 04/10/16) Past Medical History Atrial fibrillation Atrial flutter Hyperlipidemia Diastolic congenital heart failure Mild to moderate mitral regurgitation Moderate tricuspid regurgitation Pulmonary hypertension Aortic aneurysm Mild carotid stenosis bilaterally History of prior MT in 2008, status post PCI with stenting . Past Surgical History PCI with stent in 2008 A. fib ablation in 2012 . Reported Medications Bumex. Fish oil. Multivitamin. Paroxetine. Simvastatin. Timolol. Vitamin. Warfarin. . Current Medications Medications (Trade) Dose Ordered Sig/Stephanie Route Start Time Stop Time Status Last Admin (Tylenol) 650 mg Q6H PRN PO 04/10/16 14:30 04/15/16 17:44 (Protonix Inj) 40 mg DAILY IV 04/11/16 09:00 04/16/16 09:12 Miscellaneous Information 1 [id number] XX 04/10/16 14:30 04/10/16 14:30 (Chlorhexidine 2% Cloth) Taper DAILY@04 TOP 04/11/16 04:00 04/07/17 03:59 04/15/16 22:12 Chlorhexidine Gluconate 3 pack 3 pack UNSCH PRN TOP 04/10/16 14:30 Potassium Chloride 100 ml @ 50 mls/hr Q2H PRN IV 04/10/16 14:30 (KCl 20 Meq Premix Inj) 100 ml @ 50 mls/hr Q2H PRN IV 04/10/16 14:30 Potassium Chloride 40 meq 40 meq UNSCH PRN PO/TUBE 04/10/16 14:30 Potassium Chloride 100 ml @ 25 mls/hr UNSCH PRN IV 04/10/16 14:30 Potassium Chloride 100 ml @ 50 mls/hr Q2H PRN IV 04/10/16 14:30 (Magnesium Sulfate Inj/NS Inj) 100 ml @ 50 mls/hr UNSCH PRN IV 04/10/16 14:30 Magnesium Oxide 800 mg 800 mg UNSCH PRN PO 04/10/16 14:30 (Magnesium Sulfate Inj/NS Inj) 100 ml @ 50 mls/hr UNSCH PRN IV 04/10/16 14:30 Potassium Phosphate 2000 mg 2,000 mg Q4H PRN PO 04/10/16 14:30 (Sodium Phosphate Inj/NS 250 ml Inj) 250 ml @ 42 mls/hr UNSCH PRN IV 04/10/16 14:30 (KCl 40 Meq/30 ml Liq) 40 meq UNSCH PRN PO/TUBE 04/10/16 14:30 Potassium Phosphate 2000 mg 2,000 mg UNSCH PRN PO/TUBE 04/10/16 14:30 (Potassium Phosphate Inj/NS 250 ml Inj) 260 ml @ 42 mls/hr UNSCH PRN IV 04/10/16 14:30 04/11/16 13:38 Fentanyl Citrate 50 mcg 50 mcg Q1H PRN IV 04/10/16 15:30 04/14/16 01:09 (Magnesium Sulfate Inj/NS 250 ml Inj) 250 ml @ 62.5 mls/hr Q4H PRN IV 04/10/16 15:30 (Lacrilube Opht Oint) 1 applic Q4H PRN EACH EYE 04/10/16 15:30 (NS Flush) 2 ml BID IVF 04/10/16 21:00 04/16/16 09:11 IV Flush 2 ml 2 ml UNSCH PRN IVF 04/10/16 15:30 04/12/16 22:45 Miscellaneous Information 0 ml @ 0 mls/hr UNSCH IV 04/10/16 15:30 (Zosyn 3.375 Gm Premix) 50 ml @ 100 mls/hr Q6H IV 04/10/16 17:00 04/16/16 10:34 (Aspirin Chew) 81 mg DAILY CHEW 04/10/16 16:45 04/16/16 09:12 Chlorhexidine Gluconate 15 ml 15 ml BID@08,20 MT 04/14/16 20:00 04/16/16 09:13 Propofol 100 ml @ 0 mls/hr TITRATE IV 04/14/16 13:00 04/15/16 06:06 (fentaNYL DRIP) 250 ml @ 0 mls/hr TITRATE IV 04/14/16 13:00 04/16/16 04:11 (Senna Liq) 8.8 mg DAILY PO 04/15/16 17:15 04/16/16 09:11 (Lactulose Liq) 15 ml BID PO 04/15/16 17:15 04/16/16 09:11 Metoclopramide HCl 5 mg 5 mg Q8H PRN IV PUSH 04/16/16 08:45 (Precedex Inj) 50 ml @ 0 mls/hr TITRATE IV 04/16/16 09:15 04/16/16 10:35 (Bumex Inj) 1 mg DAILY IV PUSH 04/17/16 09:00 (Lovenox Inj) 40 mg Q24H SQ 04/16/16 11:00 Family History Limited family history secondary to clinical condition. Patient has 3 children who are alive and well. . Substance Use Tobacco: None. Alcohol: None. Prescription med abuse: None. Illicits: None. . Psychosocial History Patient originally from [place]. Has been with current Martha for the past 59 years. They have 3 children, Carloz, Brinda, and Samuel. 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 . Spiritual/Cultural Factors No latter day affiliations. . Living Will: Copy in medical record Health Care Surrogate: Copy in medical record Durable Power of Diesel Maintenance Electrician: Completed, but not made available Date completed: 02/13/2009. . Health Care Surrogate(s): Healthcare surrogate listed as patient's Martha Chin. Alternate healthcare surrogate listed as Milady Salinas -daughter. . Documented care wishes: Living will completed. Known wishes to include his desire not to have his dying prolonged artificially under the circumstances of the terminal condition, and end stage condition, or a persistent vegetative state. . Today's verbally stated goals: Patient unable to participate in goals of care conversation secondary to clinical condition. . Family/friends goals: ALTERNATE CODE/intubation only. Continue aggressive care in order to allow additional time for clinical/neurological improvement. . Ethical and Legal Issues No ethical legal issues have been identified. . Physical Exam Vital Signs Date Time Temp Pulse Resp B/P Pulse Ox O2 Delivery O2 Flow Rate FiO2 04/16/16 08:35 98 45 04/16/16 08:35 45 04/16/16 06:00 83 04/16/16 04:20 96 45 04/16/16 04:00 45 04/16/16 04:00 85 04/16/16 04:00 99.8 85 14 146/63 96 04/16/16 02:00 86 04/16/16 01:20 92 45 04/16/16 00:00 99.9 95 14 146/66 95 04/16/16 00:00 45 04/16/16 00:00 95 04/15/16 22:12 96 45 04/15/16 22:00 81 04/15/16 20:00 85 04/15/16 20:00 45 04/15/16 20:00 99.7 85 15 145/69 95 04/15/16 19:20 98 45 04/15/16 18:00 94 04/15/16 16:00 97 04/15/16 16:00 45 04/15/16 16:00 101.6 97 25 181/82 91 04/15/16 15:55 94 45 04/15/16 14:40 95 45 04/15/16 14:40 45 04/15/16 14:00 79 04/15/16 12:00 81 04/15/16 12:00 99.1 81 20 119/72 92 04/15/16 12:00 45 04/15/16 11:46 93 45 04/15/16 04/16/16 19:00 07:00 Intake Total 592 ml 1109 ml Output Total 1000 ml 1500.0 ml Balance -408 ml -391.0 ml Intake Oral 0 ml IV Total 344 ml 765 ml Tube Feeding 248 ml 144 ml Other 200 ml Output Urine Total 1000 ml 1100 ml Tube Feeding Residual Discard 400.0 ml Exam CONSTITUTIONAL/GENERAL: This is an adequately nourished patient, in no apparent distress. Intubated on mechanical ventilation. TUBES/LINES/DRAINS: ETT, OG, SCD's, Lira cath, soft restraints. SKIN: No jaundice, rashes, or lesions. No wounds seen anteriorly. Skin temperature appropriate. Not diaphoretic. HEAD: Atraumatic. Normocephalic. EYES: Pupils equal and round and reactive. No scleral icterus. No injection or drainage. ENT: Unable to assess his hearing secondary to clinical condition. Nose without bleeding or purulent drainage. Unable to assess throat due to ETT/OG. NECK: Trachea midline. Supple. CARDIOVASCULAR: Irregular rate and rhythm. No JVD. Peripheral pulses symmetric. RESPIRATORY/CHEST: Symmetric, unlabored respirations. Coarse to auscultation. Breath sounds equal bilaterally. Intubated on mechanical ventilation, currently on CPAP trial. GASTROINTESTINAL: Abdomen large, round, soft. Unable to appreciate hepato- splenomegaly secondary to body habitus. Bowel sounds present. GENITOURINARY: Without palpable bladder distension. Lira catheter in place. MUSCULOSKELETAL: Extremities without clubbing, cyanosis, or edema. No mottling or clubbing. NEUROLOGICAL: Sedated, intubated on mechanical ventilation. Not opening eyes to voice or tactile stimuli. PSYCHIATRIC: Unable to assess secondary to clinical condition. Appears calm. . Diagnostic Tests Laboratory Laboratory Tests Test 04/14/16 04/14/16 04/15/16 04/15/16 04:10 15:26 06:46 09:55 White Blood Count 9.8 TH/MM3 9.9 TH/MM3 (4.0-11.0) (4.0-11.0) Red Blood Count 4.71 MIL/MM3 4.79 MIL/MM3 (4.50-5.90) (4.50-5.90) Hemoglobin 14.4 GM/DL 14.6 GM/DL (13.0-17.0) (13.0-17.0) Hematocrit 41.5 % 43.4 % (39.0-51.0) (39.0-51.0) Mean Corpuscular Volume 88.2 FL 90.5 FL (80.0-100.0) (80.0-100.0) Mean Corpuscular Hemoglobin 30.6 PG 30.5 PG (27.0-34.0) (27.0-34.0) Mean Corpuscular Hemoglobin 34.7 % 33.7 % Concent (32.0-36.0) (32.0-36.0) Red Cell Distribution Width 14.4 % 14.4 % (11.6-17.2) (11.6-17.2) Platelet Count 181 TH/MM3 193 TH/MM3 (150-450) (150-450) Mean Platelet Volume 9.3 FL 8.6 FL (7.0-11.0) (7.0-11.0) Neutrophils (%) (Auto) 83.3 % 82.1 % (16.0-70.0) (16.0-70.0) Lymphocytes (%) (Auto) 6.8 % 6.6 % (9.0-44.0) (9.0-44.0) Monocytes (%) (Auto) 8.3 % (0.0-8.0) 8.9 % (0.0-8.0) Eosinophils (%) (Auto) 1.0 % (0.0-4.0) 1.7 % (0.0-4.0) Basophils (%) (Auto) 0.6 % (0.0-2.0) 0.7 % (0.0-2.0) Neutrophils # (Auto) 8.2 TH/MM3 8.2 TH/MM3 (1.8-7.7) (1.8-7.7) Lymphocytes # (Auto) 0.7 TH/MM3 0.7 TH/MM3 (1.0-4.8) (1.0-4.8) Monocytes # (Auto) 0.8 TH/MM3 0.9 TH/MM3 (0-0.9) (0-0.9) Eosinophils # (Auto) 0.1 TH/MM3 0.2 TH/MM3 (0-0.4) (0-0.4) Basophils # (Auto) 0.1 TH/MM3 0.1 TH/MM3 (0-0.2) (0-0.2) CBC Comment DIFF FINAL DIFF FINAL Differential Comment Prothrombin Time 16.1 SEC 15.1 SEC (9.8-11.6) (9.8-11.6) Prothromb Time International 1.4 RATIO 1.3 RATIO Ratio Sodium Level 148 MEQ/L 147 MEQ/L (136-145) (136-145) Potassium Level 3.6 MEQ/L 3.6 MEQ/L (3.5-5.1) (3.5-5.1) Chloride Level 113 MEQ/L 109 MEQ/L (98-107) (98-107) Carbon Dioxide Level 26.7 MEQ/L 31.0 MEQ/L (21.0-32.0) (21.0-32.0) Anion Gap 8 MEQ/L (5-15) 7 MEQ/L (5-15) Blood Urea Nitrogen 11 MG/DL (7-18) 17 MG/DL (7-18) Creatinine 1.03 MG/DL 1.00 MG/DL (0.60-1.30) (0.60-1.30) Estimat Glomerular Filtration 69 ML/MIN (>89) 72 ML/MIN (>89) Rate Random Glucose 127 MG/DL 105 MG/DL (74-106) (74-106) Calcium Level 8.3 MG/DL 8.5 MG/DL (8.5-10.1) (8.5-10.1) Magnesium Level 1.9 MG/DL 2.1 MG/DL (1.5-2.5) (1.5-2.5) Total Bilirubin 1.4 MG/DL 1.4 MG/DL (0.2-1.0) (0.2-1.0) Aspartate Amino Transf 44 U/L (15-37) 34 U/L (15-37) (AST/SGOT) Alanine Aminotransferase 45 U/L (12-78) 42 U/L (12-78) (ALT/SGPT) Alkaline Phosphatase 43 U/L (45-117) 48 U/L (45-117) Total Protein 6.6 GM/DL 6.9 GM/DL (6.4-8.2) (6.4-8.2) Albumin 2.9 GM/DL 3.0 GM/DL (3.4-5.0) (3.4-5.0) Blood Gas Puncture Site RT RADIAL Blood Gas Patient Temperature 98.6 Blood Gas HCO3 28 mmol/L (22-26) Blood Gas Base Excess 4.2 mmol/L (-2-2) Blood Gas Oxygen Saturation 94 % (90-100) Arterial Blood pH 7.44 (7.380-7.420) Arterial Blood Partial 42 mmHg (38-42) Pressure CO2 Arterial Blood Partial 83 mmHg Pressure O2 (61-120) Arterial Blood Oxygen Content 19.8 Vol % (12.0-20.0) Arterial Blood 1.7 % (0-4) Carboxyhemoglobin Arterial Blood Methemoglobin 1.0 % (0-2) Blood Gas Hemoglobin 15.0 G/DL (12.0-16.0) Oxygen Delivery Device VENTILATOR Blood Gas Ventilator Setting A/C 500/14/5PEEP Blood Gas Inspired Oxygen 40 % Phosphorus Level 3.4 MG/DL (2.5-4.9) Test 04/15/16 04/16/16 04/16/16 04/16/16 16:20 05:05 05:35 05:55 Urine Color LIGHT-ORANGE (YELLW/STRAW) Urine Turbidity HAZY (CLEAR) Urine pH 5.5 (5.0-8.5) Urine Specific Erwin 1.026 (1.002-1.035) Urine Protein 100 mg/dL (NEG-TRACE) Urine Glucose (UA) NEG mg/dL (NEG) Urine Ketones TRACE mg/dL (NEG) Urine Occult Blood LARGE (NEG) Urine Nitrite NEG (NEG) Urine Bilirubin NEG (NEG) Urine Urobilinogen LESS THAN 2.0 MG/DL (LESS THAN 2.0) Urine Leukocyte Esterase SMALL (NEG) Urine RBC /hpf (0-3) Urine WBC 15 /hpf (0-5) Urine Squamous Epithelial 1 /hpf (0-5) Cells Urine Bacteria OCC /hpf (NONE) Urine Hyaline Casts 7 /lpf (RARE) Urine Mucus FEW /lpf (OCC) Microscopic Urinalysis Comment CATH-CULTURE IND Prothrombin Time 15.9 SEC (9.8-11.6) Prothromb Time International 1.4 RATIO Ratio Sodium Level 146 MEQ/L (136-145) Potassium Level 3.4 MEQ/L (3.5-5.1) Chloride Level 107 MEQ/L (98-107) Carbon Dioxide Level 32.9 MEQ/L (21.0-32.0) Anion Gap 6 MEQ/L (5-15) Blood Urea Nitrogen 18 MG/DL (7-18) Creatinine 1.08 MG/DL (0.60-1.30) Estimat Glomerular Filtration 65 ML/MIN (>89) Rate Random Glucose 123 MG/DL (74-106) Calcium Level 8.7 MG/DL (8.5-10.1) Total Bilirubin 2.8 MG/DL (0.2-1.0) Aspartate Amino Transf 29 U/L (15-37) (AST/SGOT) Alanine Aminotransferase 34 U/L (12-78) (ALT/SGPT) Alkaline Phosphatase 47 U/L (45-117) Total Protein 7.2 GM/DL (6.4-8.2) Albumin 2.9 GM/DL (3.4-5.0) White Blood Count 7.9 TH/MM3 (4.0-11.0) Red Blood Count 4.59 MIL/MM3 (4.50-5.90) Hemoglobin 14.0 GM/DL (13.0-17.0) Hematocrit 41.5 % (39.0-51.0) Mean Corpuscular Volume 90.5 FL (80.0-100.0) Mean Corpuscular Hemoglobin 30.5 PG (27.0-34.0) Mean Corpuscular Hemoglobin 33.7 % Concent (32.0-36.0) Red Cell Distribution Width 14.1 % (11.6-17.2) Platelet Count 198 TH/MM3 (150-450) Mean Platelet Volume 9.3 FL (7.0-11.0) Neutrophils (%) (Auto) 80.4 % (16.0-70.0) Lymphocytes (%) (Auto) 5.3 % (9.0-44.0) Monocytes (%) (Auto) 12.6 % (0.0-8.0) Eosinophils (%) (Auto) 1.2 % (0.0-4.0) Basophils (%) (Auto) 0.5 % (0.0-2.0) Neutrophils # (Auto) 6.4 TH/MM3 (1.8-7.7) Lymphocytes # (Auto) 0.4 TH/MM3 (1.0-4.8) Monocytes # (Auto) 1.0 TH/MM3 (0-0.9) Eosinophils # (Auto) 0.1 TH/MM3 (0-0.4) Basophils # (Auto) 0.0 TH/MM3 (0-0.2) CBC Comment DIFF FINAL Differential Comment Result Diagram: 04/16/16 0555 04/16/16 0535 Microbiology Microbiology Date/Time Procedure Status Source Growth 04/13/16 11:30 Aerobic Blood Culture - Preliminary Resulted Blood Peripheral NO GROWTH IN 3 DAYS 04/13/16 11:30 Anaerobic Blood Culture - Preliminary Resulted Blood Peripheral NO GROWTH IN 3 DAYS 04/13/16 11:30 Gram Stain - Final Complete Sputum Endotracheal 04/13/16 11:30 Sputum Culture - Final Complete Sputum Endotracheal NO GROWTH IN 48 HOURS. 04/13/16 11:35 Aerobic Blood Culture - Preliminary Resulted Blood Peripheral NO GROWTH IN 3 DAYS 04/13/16 11:35 Anaerobic Blood Culture - Preliminary Resulted Blood Peripheral NO GROWTH IN 3 DAYS 04/13/16 11:40 Urine Culture - Final Complete Urine Catheterized Urine NO GROWTH IN 48 HOURS. 04/15/16 16:20 Gram Stain - Final Resulted Sputum Endotracheal 04/15/16 16:20 Sputum Culture Resulted Sputum Endotracheal Pending 04/15/16 16:20 Urine Culture Received Urine Catheterized Urine Pending 04/15/16 17:13 Aerobic Blood Culture - Preliminary Resulted Blood Peripheral NO GROWTH IN 1 DAY 04/15/16 17:13 Anaerobic Blood Culture - Preliminary Resulted Blood Peripheral NO GROWTH IN 1 DAY 04/15/16 17:18 Aerobic Blood Culture - Preliminary Resulted Blood Peripheral NO GROWTH IN 1 DAY 04/15/16 17:18 Anaerobic Blood Culture - Preliminary Resulted Blood Peripheral NO GROWTH IN 1 DAY Imaging Last Impressions Abdomen X-Ray 04/15/16 0000 Signed Impressions: Service Date/Time: Saturday, April 16, 2016 00:06 - CONCLUSION: No acute disease. Néstor Marquez MD Chest X-Ray 04/14/16 0600 Signed Impressions: Service Date/Time: Thursday, April 14, 2016 02:47 - CONCLUSION: Bilateral perihilar and lower lung zone interstitial opacity remains present and could represent pulmonary edema. The small left pleural effusion documented on the prior study is not seen today. Rick Bejarano MD Brain MRI 04/14/16 0000 Signed Impressions: Service Date/Time: Thursday, April 14, 2016 22:05 - CONCLUSION: Minimal white matter ischemic changes. No significant abnormality. Bertin Mederos MD Head CT 04/10/16 0000 Signed Impressions: Service Date/Time: Sunday, April 10, 2016 15:15 - CONCLUSION: Stable appearance of the brain without evidence of acute infarct, hemorrhage, mass or edema. Stable mild ventricular enlargement.. Aman Galarza MD Procedures * 04/14/16 -intubation. * 04/14/16 -extubation. * 04/10/16 -right femoral central line placement. * 04/10/16 -intubation. . Patient/Family Conference Present at Family Conference: Patient's Mere and daughter Brinda. . Family Conference Time (mins): 40 Family Conference Location: Bedside Issues Discussed: * Palliative care role, purpose, approach * Additional medical, psychosocial, and spiritual history * Patients general health, functional status, and cognitive changes in the months leading up to the current hospitalization * Family's understanding of the current medical problems -acute respiratory failure and questionable anoxic brain injury. * Family's understanding of prognosis * Patients goals of care as best understood from advance directives and/or conversations and/or values * Current medical treatment options and benefits/burdens of those options * Likely scenarios comparing ongoing aggressive care with a transition to comfort measures only * CODE STATUS discussion * Questions answered to the best of my ability * Palliative care contact information provided . Assessment and Plan Disease Oriented Problem List: (1) Acute respiratory failure (2) Cardiac arrest (3) Ventricular fibrillation (4) Probable anoxic brain injury Symptom Scale: (1) Shortness of breath 0-10 Scale: Unable to quantify Comment: Remains intubated on mechanical ventilation. (2) Debility 0-10 Scale: Unable to quantify Comment: Secondary to acute illness. (3) Restlessness Comment: Secondary to acute illness, and mechanical intubation. Currently on Precedex drip. Pertinent Non-Medical Issues Psychosocial: . Retired. has 3 children. Spiritual: No latter day affiliations. Legal: Living well and healthcare surrogate completed. Ethical issues impacting care: No ethical issues have been identified. . Important Contacts Martha Chin [phone]. Nikolas Carty [phone]. Prognosis Mr. Chin is an 80-year-old male with a medical history significant for atrial fibrillation, diastolic heart failure and prior MT who presented to the ED on 04/10/16 via EMS status post witnessed cardiac arrest. Patient remains status induce hypothermia protocol, questionable anoxic brain injury. Patient overall prognosis is guarded. . Code Status: Alternative Code Plan * CODE STATUS: Alternate code/intubation only. * Patient incapacitated for medical decision-making secondary to clinical condition, unclear if he will regain. Healthcare surrogate paperwork documents provided by family, patient remained his Martha Long as HCS. * GOALS OF CARE: Alternate code/intubation only. Continue aggressive care short of NO CARDIAC CODE in order to allow time for clinical/neurological improvement. Met with patient's Mere and daughter Brinda at bedside. Medical update provided. Review events leading to his hospitalizations, current medical treatment and plan. Reviewed patient's current respiratory and neurological state. Discussed recommendations from attending and cardiology to allow additional time for neurological improvement. Reviewed current CPAP trials and indications for medical extubation. Discussed that patient remains critically ill and at high risk of further decline, complications and . Family verbalized feeling optimistic about his neurological recovery, however, aware patient's critical condition. * SYMPTOMS: == Shortness of breath: Remains intubated on mechanical ventilation. == Restlessness: Secondary to acute illness and mechanical ventilation, currently on Precedex drip. * Case discussed with Dr. Srinivasan and bedside RN. * Palliative care contact information has been provided to family. * All questions have been answered in great detail. * Palliative care will continue to follow up with this patient/family for further clarification of goals of care. . Time Spent Total Floor Time (mins): 85 (Total time to include review and summarization of available medical records, physical exam, goals of care discussion with family, case discussion with Dr. Srinivasan and bedside RN. ) Face to Face Time (mins): 60 >50% Counseling/Coord of Care: Yes Thank you for the opportunity to participate in the care of Mr. Chin. Attestation To help prompt me to consider important information that might be impacting today's encounter and assessment, information from prior notes written by myself or my colleagues may have been "brought forward" into today's note. My signature on this note, however, is an attestation that I personally performed the exam, history, and/or decision-making noted today, and, unless otherwise indicated, the interactions with patient, family, and staff as well as the review of records all occurred today. I also attest that the listed assessment and stated plan reflect my best clinical judgment today based on the combination of historical information, prior notes, and today's exam/ interactions. When time spent is documented, it refers only to time spent today by the signer, or if indicated, combined time spent today by collaborating physician/nurse practitioner. Letty De Santiago Apr 16, 2016 11:38
[2016-04-16] MEDS: ENOXAPARIN SODIUM 40 MG/0.4 ML SYRINGE SQ SCH (12:54)
[2016-04-16] MEDS: POTASSIUM CHLOR 20 MEQ PREMIX 100 ML IV PRN ×2 (13:00→16:51)
[2016-04-16] MEDS: ACETAMINOPHEN 325 MG TAB PO PRN (17:11)
[2016-04-17] VITALS (18 sets, daily range): BP systolic 102–136; BP diastolic 55–64; PULSE 65–93; RESP 12–32; TEMP 99.9–101.2; O2SAT 95–98
[2016-04-17] MEDS: RESP: ALBUTEROL 2.5 MG/IPRATROPIUM 0.5 MG NEB (SCH) NEB ×4 (02:35→21:11)
[2016-04-17] MEDS: PIPERACIL-TAZO 3.375 GM PREMIX 50 ML IV SCH ×4 (03:43→22:39)
[2016-04-17] MEDS: ACETAMINOPHEN 325 MG TAB PO PRN ×2 (03:44→20:40)
[2016-04-17] MEDS: DEXMEDETOMIDINE INJ 50 ML IV SCH ×7 (03:54→22:38)
[2016-04-17] MEDS: CHLORHEXIDINE GLUCONATE 2 % 1 PACK (2 CLOTHS) TOP SCH (04:00)
--- NOTE | 2016-04-17 05:28 | RADRPT ---
EXAM DATE/TIME: 04/17/2016 03:48 [place] COMPARISON: CHEST SINGLE AP, April 14, 2016, 13:11. INDICATIONS : Shortness of breath. MEDICAL HISTORY : Hypertension. Cardiovascular disease. Myocardial infarction. AFIB SURGICAL HISTORY : Cardiac stents in 2008, cardiac ablation ENCOUNTER: Subsequent ACUITY: 1 week PAIN SCORE: Non-responsive. LOCATION: Bilateral chest FINDINGS: Cardiomegaly and shallow lung volumes. Endotracheal tube and NG tube are noted. EKG leads overlie the chest. CONCLUSION: No significant change has occurred. Néstor Marquez MD on April 17, 2016 at 5:26 Board Certified Radiologist. This report was verified electronically.
[2016-04-17 06:11] LABS: WHITE BLOOD COUNT 7.4 TH/MM3 (4.0-11.0)
[2016-04-17 06:12] LABS: BASOPHIL % 0.4 % (0.0-2.0); EOSINOPHIL # 0.1 TH/MM3 (0-0.4); EOSINOPHIL % 1.2 % (0.0-4.0); HEMATOCRIT 40.8 % (39.0-51.0); HEMO FLAGS DIFF FINAL; LYMPH % 5.9 % (9.0-44.0); LYMPHOCYTE # 0.4 TH/MM3 (1.0-4.8); MEAN CELL VOLUME 88.7 FL (80.0-100.0); MEAN CORPUSCULAR HEMOGLOBIN 30.5 PG (27.0-34.0); MEAN CORPUSCULAR HGB CONC 34.4 % (32.0-36.0); MONO % 12.2 % (0.0-8.0); NEUT % 80.3 % (16.0-70.0); PLATELET COUNT 175 TH/MM3 (150-450); RED BLOOD COUNT 4.59 MIL/MM3 (4.50-5.90); RED CELL DISTRIBUTION WIDTH 14.1 % (11.6-17.2)
[2016-04-17 06:43] LABS: INTERNATIONAL NORMALIZED RATIO 1.5 RATIO; PROTHROMBIN TIME - PATIENT 16.7 SEC (9.8-11.6)
[2016-04-17 06:53] LABS: BICARBONATE 28.6 MEQ/L (21.0-32.0); MAGNESIUM 2.6 MG/DL (1.5-2.5); POTASSIUM 3.5 MEQ/L (3.5-5.1)
--- NOTE | 2016-04-17 07:35 | PD.CARD.PN ---
Objective Vital Signs / I&O Vital Signs Date Time Temp Pulse Resp B/P Pulse Ox O2 Delivery O2 Flow Rate FiO2 04/17/16 06:00 72 04/17/16 04:22 96 45 04/17/16 04:00 100.4 93 32 134/63 97 04/17/16 04:00 45 04/17/16 04:00 93 04/17/16 02:00 74 04/17/16 00:33 95 45 04/17/16 00:00 45 04/17/16 00:00 78 04/17/16 00:00 100.2 78 20 120/58 97 04/16/16 22:00 75 04/16/16 21:00 96 45 04/16/16 20:00 45 04/16/16 20:00 100.3 67 14 96/54 96 04/16/16 20:00 67 04/16/16 18:00 78 04/16/16 16:08 96 45 04/16/16 16:00 45 04/16/16 16:00 101.6 77 14 121/59 96 04/16/16 16:00 77 04/16/16 14:00 72 04/16/16 12:32 97 45 04/16/16 12:00 45 04/16/16 12:00 81 04/16/16 12:00 100.8 81 19 101/53 81 04/16/16 10:00 89 04/16/16 08:35 98 45 04/16/16 08:35 45 04/16/16 08:00 45 04/16/16 08:00 99.0 81 14 141/63 96 04/16/16 08:00 81 I/O 04/16/16 04/16/16 04/16/16 04/17/16 04/17/16 04/17/16 07:00 15:00 23:00 07:00 15:00 23:00 Intake Total 681 ml 1228 ml 608 ml Output Total 800 ml 1425 ml 500 ml Balance -119 ml -197 ml 108 ml IV Total 561 ml 944 ml 402 ml Tube Feeding 84 ml 206 ml Other 120 ml 200 ml Output Urine Total 800 ml 1425 ml 500 ml # Bowel Movements 1 Physical Exam GENERAL: Well-nourished, well-developed patient in no apparent distress. NECK: No JVD. No carotid bruit. CARDIOVASCULAR: Regular rate and rhythm. S1/S2 no murmur, rub, or gallop. RESPIRATORY: No accessory muscle use. Clear to auscultation. Breath sounds equal bilaterally. GASTROINTESTINAL: Abdomen soft, non-tender, nondistended. MUSCULOSKELETAL: Extremities without clubbing, cyanosis, or edema. Laboratory Laboratory Tests Test 04/17/16 05:18 White Blood Count 7.4 TH/MM3 Red Blood Count 4.59 MIL/MM3 Hemoglobin 14.0 GM/DL Hematocrit 40.8 % Mean Corpuscular Volume 88.7 FL Mean Corpuscular Hemoglobin 30.5 PG Mean Corpuscular Hemoglobin 34.4 % Concent Red Cell Distribution Width 14.1 % Platelet Count 175 TH/MM3 Mean Platelet Volume 9.1 FL Neutrophils (%) (Auto) 80.3 % Lymphocytes (%) (Auto) 5.9 % Monocytes (%) (Auto) 12.2 % Eosinophils (%) (Auto) 1.2 % Basophils (%) (Auto) 0.4 % Neutrophils # (Auto) 6.0 TH/MM3 Lymphocytes # (Auto) 0.4 TH/MM3 Monocytes # (Auto) 0.9 TH/MM3 Eosinophils # (Auto) 0.1 TH/MM3 Basophils # (Auto) 0.0 TH/MM3 CBC Comment DIFF FINAL Differential Comment Prothrombin Time 16.7 SEC Prothromb Time International 1.5 RATIO Ratio Sodium Level 144 MEQ/L Potassium Level 3.5 MEQ/L Chloride Level 107 MEQ/L Carbon Dioxide Level 28.6 MEQ/L Anion Gap 8 MEQ/L Blood Urea Nitrogen 22 MG/DL Creatinine 1.14 MG/DL Estimat Glomerular Filtration 61 ML/MIN Rate Random Glucose 140 MG/DL Calcium Level 8.7 MG/DL Phosphorus Level 2.0 MG/DL Magnesium Level 2.6 MG/DL (Ugo Christine) Assessment and Plan Problem List: (1) Cardiac arrest (2) Ventricular fibrillation (3) Atrial fibrillation with rapid ventricular response Assessment and Plan hemodynamically stable. no arrhythmias. BP good. extubated/reintubated. Not following commands. EEG - moderate encephalopathy. echo shows cardiomyopathy EF 35%. Na/Cl improved pulmonary edema improved. LE edema improved. Continue Bumex IV once daily. upon neurologic recovery, he will need further workup for etiology to his cardiac arrest which may involve LHC. Warfarin d/c'd. Troponin minimally elevated likely due to arrest, not WA. lovenox DVT prophylaxis (Ugo Christine) Assessment and Plan no change. Stable cardiac monge will sign off. call back when/if he makes meaningful neurologic recovery. Continue supportive care. thank you (Celestino Encarnacion MD) Ugo Christine Apr 17, 2016 07:35 Celestino Encarnacion MD Apr 17, 2016 14:34
[2016-04-17] MEDS: CHLORHEXIDINE 0.12% (ORAL KIT) 15 ML CUP MT SCH ×2 (08:54→20:38)
[2016-04-17] MEDS: LACTULOSE SYRUP 20 GM/30 ML CUP PO SCH ×2 (08:55→20:38)
[2016-04-17] MEDS: SENNOSIDES SYRUP 8.8 MG/5 ML CUP PO SCH (08:55)
[2016-04-17] MEDS: PANTOPRAZOLE SODIUM 40 MG VIAL IV SCH (08:57)
[2016-04-17] MEDS: ASPIRIN 81 MG CHEW TAB CHEW SCH (08:59)
[2016-04-17] MEDS: POTASSIUM PHOSPHATE INJ 30 MMOL in SODIUM CHLOR 0.9% 250 ML INJ 250 ML IV PRN (08:59)
[2016-04-17] MEDS: SODIUM CHLORIDE 0.9% FLUSH 5 ML FLUSH IVF SCH ×2 (08:59→20:38)
[2016-04-17] MEDS ORDERED: BUMETANIDE INJ 1 MG/4 ML VIAL IV PUSH SCH (09:00)
[2016-04-17] MEDS: ENOXAPARIN SODIUM 40 MG/0.4 ML SYRINGE SQ SCH (10:53)
--- NOTE | 2016-04-17 11:08 | HHI.HCPN ---
Reason for visit a. To assist with evaluation and management of symptoms including: shortness of breath and restlessness. b. To assist medical decision maker(s) with: better understanding of current medical conditions; weighing benefits/burdens of medical treatment options; making medical treatment decisions. Subjective/Interval History Palliative care f/u for clarifications of goals of care and symptom management. Patient seen in ICU, remains intubated on mechanical ventilation. Ongoing CPAP trial, FiO2 45%. Patient appears calm. Max temp 100.5, heart rate control , stable blood pressure. Chest x-ray today showing no significant changes. WBC 7.4, hemoglobin 14, platelet count 175. NA 144, potassium 3.5, BUN/ creatinine 22/1.14. Ongoing tube feedings via OG tube, appears to be tolerating well. Telephone call to patient's , left message on voicemail. Palliative care to follow what with family this afternoon for medical update and emotional support. 11:05. Met with patient's daughter Brinda at bedside. Medical update provided. Reviewed current plan of care/management. Goals of care remains unchanged, allow additional time for clinical/neurological improvement. Daughter Brinda verbalized appreciation of yesterday's conversation, she reports that family feels at peace with goals of care clarification and plan of care. Ongoing emotional support and active listening provided. . Family/friend interactions See interval note. . Advance Directives Living Will: Copy in medical record Health Care Surrogate: Copy in medical record Durable Power of [employer]: Completed, but not made available Advance Directive Specifics Date completed: 02/13/2009. . Health Care Surrogate(s): Healthcare surrogate listed as patient's Martha Chin. Alternate healthcare surrogate listed as Milady Salinas -daughter. . Documented care wishes: Living will completed. Known wishes to include his desire not to have his dying prolonged artificially under the circumstances of the terminal condition, and end stage condition, or a persistent vegetative state. . Significant change in goals: ALT CODE/intubation only. Continue aggressive care short of no cardiac code in order to allow time for clinical improvement. . Objective Vital Signs Date Time Temp Pulse Resp B/P Pulse Ox O2 Delivery O2 Flow Rate FiO2 04/17/16 10:00 65 04/17/16 08:00 75 04/17/16 08:00 100.5 70 13 124/58 97 04/17/16 08:00 45 04/17/16 07:46 98 45 04/17/16 07:46 45 04/17/16 06:00 72 04/17/16 04:22 96 45 04/17/16 04:00 100.4 93 32 134/63 97 04/17/16 04:00 45 04/17/16 04:00 93 04/17/16 02:00 74 04/17/16 00:33 95 45 04/17/16 00:00 45 04/17/16 00:00 78 04/17/16 00:00 100.2 78 20 120/58 97 04/16/16 22:00 75 04/16/16 21:00 96 45 04/16/16 20:00 45 04/16/16 20:00 100.3 67 14 96/54 96 04/16/16 20:00 67 04/16/16 18:00 78 04/16/16 16:08 96 45 04/16/16 16:00 45 04/16/16 16:00 101.6 77 14 121/59 96 04/16/16 16:00 77 04/16/16 14:00 72 04/16/16 12:32 97 45 04/16/16 12:00 45 04/16/16 12:00 81 04/16/16 12:00 100.8 81 19 101/53 81 Intake & Output 04/17/16 04/17/16 07:00 19:00 Intake Total 608 ml Output Total 500 ml Balance 108 ml IV Total 402 ml Tube Feeding 206 ml Output Urine Total 500 ml # Bowel Movements 1 Physical Exam CONSTITUTIONAL/GENERAL: This is an adequately nourished patient, in no apparent distress. Intubated on mechanical ventilation. Ongoing CPAP trial. TUBES/LINES/DRAINS: ETT, OG, SCD's, Lira cath, soft restraints. SKIN: No jaundice, rashes, or lesions. No wounds seen anteriorly. Skin temperature appropriate. Not diaphoretic. HEAD: Atraumatic. Normocephalic. EYES: Pupils equal and round and reactive. No scleral icterus. No injection or drainage. ENT: Unable to assess his hearing secondary to clinical condition. Nose without bleeding or purulent drainage. Unable to assess throat due to ETT/OG. NECK: Trachea midline. Supple. CARDIOVASCULAR: Irregular rate and rhythm. No JVD. Peripheral pulses symmetric.+ 2 edema to bilateral upper extremities. RESPIRATORY/CHEST: Symmetric, unlabored respirations. Coarse to auscultation. Breath sounds equal bilaterally. Intubated on mechanical ventilation, currently on CPAP trial. GASTROINTESTINAL: Abdomen large, round, soft. Unable to appreciate hepato- splenomegaly secondary to body habitus. Bowel sounds present. GENITOURINARY: Without palpable bladder distension. Lira catheter in place. MUSCULOSKELETAL: Extremities without clubbing, cyanosis, or edema. No mottling or clubbing. NEUROLOGICAL: Sedated, intubated on mechanical ventilation. Not opening eyes to voice or tactile stimuli. PSYCHIATRIC: Unable to assess secondary to clinical condition. Appears calm. . Diagnostic Tests Laboratory Laboratory Tests Test 04/14/16 04/15/16 04/15/16 04/15/16 15:26 06:46 09:55 16:20 Blood Gas Puncture Site RT RADIAL Blood Gas Patient Temperature 98.6 Blood Gas HCO3 28 mmol/L (22-26) Blood Gas Base Excess 4.2 mmol/L (-2-2) Blood Gas Oxygen Saturation 94 % (90-100) Arterial Blood pH 7.44 (7.380-7.420) Arterial Blood Partial 42 mmHg (38-42) Pressure CO2 Arterial Blood Partial 83 mmHg Pressure O2 (61-120) Arterial Blood Oxygen Content 19.8 Vol % (12.0-20.0) Arterial Blood 1.7 % (0-4) Carboxyhemoglobin Arterial Blood Methemoglobin 1.0 % (0-2) Blood Gas Hemoglobin 15.0 G/DL (12.0-16.0) Oxygen Delivery Device VENTILATOR Blood Gas Ventilator Setting A/C 500/14/5PEEP Blood Gas Inspired Oxygen 40 % Prothrombin Time 15.1 SEC (9.8-11.6) Prothromb Time International 1.3 RATIO Ratio White Blood Count 9.9 TH/MM3 (4.0-11.0) Red Blood Count 4.79 MIL/MM3 (4.50-5.90) Hemoglobin 14.6 GM/DL (13.0-17.0) Hematocrit 43.4 % (39.0-51.0) Mean Corpuscular Volume 90.5 FL (80.0-100.0) Mean Corpuscular Hemoglobin 30.5 PG (27.0-34.0) Mean Corpuscular Hemoglobin 33.7 % Concent (32.0-36.0) Red Cell Distribution Width 14.4 % (11.6-17.2) Platelet Count 193 TH/MM3 (150-450) Mean Platelet Volume 8.6 FL (7.0-11.0) Neutrophils (%) (Auto) 82.1 % (16.0-70.0) Lymphocytes (%) (Auto) 6.6 % (9.0-44.0) Monocytes (%) (Auto) 8.9 % (0.0-8.0) Eosinophils (%) (Auto) 1.7 % (0.0-4.0) Basophils (%) (Auto) 0.7 % (0.0-2.0) Neutrophils # (Auto) 8.2 TH/MM3 (1.8-7.7) Lymphocytes # (Auto) 0.7 TH/MM3 (1.0-4.8) Monocytes # (Auto) 0.9 TH/MM3 (0-0.9) Eosinophils # (Auto) 0.2 TH/MM3 (0-0.4) Basophils # (Auto) 0.1 TH/MM3 (0-0.2) CBC Comment DIFF FINAL Differential Comment Sodium Level 147 MEQ/L (136-145) Potassium Level 3.6 MEQ/L (3.5-5.1) Chloride Level 109 MEQ/L (98-107) Carbon Dioxide Level 31.0 MEQ/L (21.0-32.0) Anion Gap 7 MEQ/L (5-15) Blood Urea Nitrogen 17 MG/DL (7-18) Creatinine 1.00 MG/DL (0.60-1.30) Estimat Glomerular Filtration 72 ML/MIN (>89) Rate Random Glucose 105 MG/DL (74-106) Calcium Level 8.5 MG/DL (8.5-10.1) Phosphorus Level 3.4 MG/DL (2.5-4.9) Magnesium Level 2.1 MG/DL (1.5-2.5) Total Bilirubin 1.4 MG/DL (0.2-1.0) Aspartate Amino Transf 34 U/L (15-37) (AST/SGOT) Alanine Aminotransferase 42 U/L (12-78) (ALT/SGPT) Alkaline Phosphatase 48 U/L (45-117) Total Protein 6.9 GM/DL (6.4-8.2) Albumin 3.0 GM/DL (3.4-5.0) Urine Color LIGHT-ORANGE (YELLW/STRAW) Urine Turbidity HAZY (CLEAR) Urine pH 5.5 (5.0-8.5) Urine Specific [place] 1.026 (1.002-1.035) Urine Protein 100 mg/dL (NEG-TRACE) Urine Glucose (UA) NEG mg/dL (NEG) Urine Ketones TRACE mg/dL (NEG) Urine Occult Blood LARGE (NEG) Urine Nitrite NEG (NEG) Urine Bilirubin NEG (NEG) Urine Urobilinogen LESS THAN 2.0 MG/DL (LESS THAN 2.0) Urine Leukocyte Esterase SMALL (NEG) Urine RBC /hpf (0-3) Urine WBC 15 /hpf (0-5) Urine Squamous Epithelial 1 /hpf (0-5) Cells Urine Bacteria OCC /hpf (NONE) Urine Hyaline Casts 7 /lpf (RARE) Urine Mucus FEW /lpf (OCC) Microscopic Urinalysis Comment CATH-CULTURE IND Test 04/16/16 04/16/16 04/16/16 04/17/16 05:05 05:35 05:55 05:18 Prothrombin Time 15.9 SEC 16.7 SEC (9.8-11.6) (9.8-11.6) Prothromb Time International 1.4 RATIO 1.5 RATIO Ratio Sodium Level 146 MEQ/L 144 MEQ/L (136-145) (136-145) Potassium Level 3.4 MEQ/L 3.5 MEQ/L (3.5-5.1) (3.5-5.1) Chloride Level 107 MEQ/L 107 MEQ/L (98-107) (98-107) Carbon Dioxide Level 32.9 MEQ/L 28.6 MEQ/L (21.0-32.0) (21.0-32.0) Anion Gap 6 MEQ/L (5-15) 8 MEQ/L (5-15) Blood Urea Nitrogen 18 MG/DL (7-18) 22 MG/DL (7-18) Creatinine 1.08 MG/DL 1.14 MG/DL (0.60-1.30) (0.60-1.30) Estimat Glomerular Filtration 65 ML/MIN (>89) 61 ML/MIN (>89) Rate Random Glucose 123 MG/DL 140 MG/DL (74-106) (74-106) Calcium Level 8.7 MG/DL 8.7 MG/DL (8.5-10.1) (8.5-10.1) Total Bilirubin 2.8 MG/DL (0.2-1.0) Aspartate Amino Transf 29 U/L (15-37) (AST/SGOT) Alanine Aminotransferase 34 U/L (12-78) (ALT/SGPT) Alkaline Phosphatase 47 U/L (45-117) Total Protein 7.2 GM/DL (6.4-8.2) Albumin 2.9 GM/DL (3.4-5.0) White Blood Count 7.9 TH/MM3 7.4 TH/MM3 (4.0-11.0) (4.0-11.0) Red Blood Count 4.59 MIL/MM3 4.59 MIL/MM3 (4.50-5.90) (4.50-5.90) Hemoglobin 14.0 GM/DL 14.0 GM/DL (13.0-17.0) (13.0-17.0) Hematocrit 41.5 % 40.8 % (39.0-51.0) (39.0-51.0) Mean Corpuscular Volume 90.5 FL 88.7 FL (80.0-100.0) (80.0-100.0) Mean Corpuscular Hemoglobin 30.5 PG 30.5 PG (27.0-34.0) (27.0-34.0) Mean Corpuscular Hemoglobin 33.7 % 34.4 % Concent (32.0-36.0) (32.0-36.0) Red Cell Distribution Width 14.1 % 14.1 % (11.6-17.2) (11.6-17.2) Platelet Count 198 TH/MM3 175 TH/MM3 (150-450) (150-450) Mean Platelet Volume 9.3 FL 9.1 FL (7.0-11.0) (7.0-11.0) Neutrophils (%) (Auto) 80.4 % 80.3 % (16.0-70.0) (16.0-70.0) Lymphocytes (%) (Auto) 5.3 % 5.9 % (9.0-44.0) (9.0-44.0) Monocytes (%) (Auto) 12.6 % 12.2 % (0.0-8.0) (0.0-8.0) Eosinophils (%) (Auto) 1.2 % (0.0-4.0) 1.2 % (0.0-4.0) Basophils (%) (Auto) 0.5 % (0.0-2.0) 0.4 % (0.0-2.0) Neutrophils # (Auto) 6.4 TH/MM3 6.0 TH/MM3 (1.8-7.7) (1.8-7.7) Lymphocytes # (Auto) 0.4 TH/MM3 0.4 TH/MM3 (1.0-4.8) (1.0-4.8) Monocytes # (Auto) 1.0 TH/MM3 0.9 TH/MM3 (0-0.9) (0-0.9) Eosinophils # (Auto) 0.1 TH/MM3 0.1 TH/MM3 (0-0.4) (0-0.4) Basophils # (Auto) 0.0 TH/MM3 0.0 TH/MM3 (0-0.2) (0-0.2) CBC Comment DIFF FINAL DIFF FINAL Differential Comment Phosphorus Level 2.0 MG/DL (2.5-4.9) Magnesium Level 2.6 MG/DL (1.5-2.5) Result Diagram: 04/17/1618 04/17/1618 Microbiology Microbiology Date/Time Procedure Status Source Growth 04/15/16 16:20 Gram Stain - Final Complete Sputum Endotracheal 04/15/16 16:20 Sputum Culture - Final Complete Klebsiella Pneumoniae 04/15/16 16:20 Urine Culture - Final Complete Urine Catheterized Urine NO GROWTH IN 48 HOURS. 04/15/16 17:13 Aerobic Blood Culture - Preliminary Resulted Blood Peripheral NO GROWTH IN 1 DAY 04/15/16 17:13 Anaerobic Blood Culture - Preliminary Resulted Blood Peripheral NO GROWTH IN 1 DAY 04/15/16 17:18 Aerobic Blood Culture - Preliminary Resulted Blood Peripheral NO GROWTH IN 1 DAY 04/15/16 17:18 Anaerobic Blood Culture - Preliminary Resulted Blood Peripheral NO GROWTH IN 1 DAY Procedures * 04/14/16 -intubation. * 04/14/16 -extubation. * 04/10/16 -right femoral central line placement. * 04/10/16 -intubation. . Assessment and Plan Disease Oriented Problem List: (1) Acute respiratory failure (2) Cardiac arrest (3) Ventricular fibrillation (4) Probable anoxic brain injury Symptom Scale: (1) Shortness of breath 0-10 Scale: Unable to quantify Comment: Remains intubated on mechanical ventilation. (2) Debility 0-10 Scale: Unable to quantify Comment: Secondary to acute illness. (3) Restlessness Comment: Secondary to acute illness, and mechanical intubation. Currently on Precedex drip. Pertinent Non-Medical Issues Psychosocial: . Retired. has 3 children. Spiritual: No mormon affiliations. Legal: Living well and healthcare surrogate completed. Ethical issues impacting care: No ethical issues have been identified. . Important Contacts Martha Chin [phone]. Son Carloz [phone]. Prognosis Mr. Chin is an 80-year-old male with a medical history significant for atrial fibrillation, diastolic heart failure and prior [place] who presented to the ED on 04/10/16 via EMS status post witnessed cardiac arrest. Patient remains status induce hypothermia protocol, questionable anoxic brain injury. Patient overall prognosis is guarded. . Code Status: Alternative Code Plan * CODE STATUS: Alternate code/intubation only. * Patient incapacitated for medical decision-making secondary to clinical condition, unclear if he will regain. Healthcare surrogate paperwork documents provided by family, patient remained his Martha Long as HCS. * GOALS OF CARE: Alternate code/intubation only. Continue aggressive care short of NO CARDIAC CODE in order to allow time for clinical/neurological improvement. Family aware that patient remains critically ill and is at high risk of further decline, complications and . Family verbalized feeling optimistic about his neurological recovery, however, aware of patient's critical condition. * SYMPTOMS: == Shortness of breath: Remains intubated on mechanical ventilation. Ongoing CPAP trials. == Restlessness: Secondary to acute illness and mechanical ventilation, remains on Precedex drip. * Case discussed with Dr. Srinivasan and bedside RN. * Palliative care contact information has been provided to family. * All questions have been answered in great detail. * Palliative care will continue to follow up with this patient/family for further clarification of goals of care. . Time Spent Total Floor Time (mins): 38 (Total time to include review of medical records, physical exam, bedside conversation with daughter Brinda, and case discussion with bedside RN.) Face to Face Time (mins): 30 >50% Counseling/Coord of Care: Yes Attestation To help prompt me to consider important information that might be impacting today's encounter and assessment, information from prior notes written by myself or my colleagues may have been "brought forward" into today's note. My signature on this note, however, is an attestation that I personally performed the exam, history, and/or decision-making noted today, and, unless otherwise indicated, the interactions with patient, family, and staff as well as the review of records all occurred today. I also attest that the listed assessment and stated plan reflect my best clinical judgment today based on the combination of historical information, prior notes, and today's exam/ interactions. When time spent is documented, it refers only to time spent today by the signer, or if indicated, combined time spent today by collaborating physician/nurse practitioner. Letty De Santiago Apr 17, 2016 11:08
[2016-04-18] VITALS (19 sets, daily range): BP systolic 117–149; BP diastolic 59–76; PULSE 69–94; RESP 14–36; TEMP 100–101.4; O2SAT 93–99
[2016-04-18] MEDS: CHLORHEXIDINE GLUCONATE 2 % 1 PACK (2 CLOTHS) TOP SCH (04:00)
[2016-04-18] MEDS: RESP: ALBUTEROL 2.5 MG/IPRATROPIUM 0.5 MG NEB (SCH) NEB (04:12)
[2016-04-18] MEDS: DEXMEDETOMIDINE INJ 50 ML IV SCH ×8 (04:19→22:47)
[2016-04-18] MEDS: PIPERACIL-TAZO 3.375 GM PREMIX 50 ML IV SCH ×4 (04:19→22:48)
[2016-04-18] MEDS: ACETAMINOPHEN 325 MG TAB PO PRN ×3 (04:19→20:13)
[2016-04-18 05:52] LABS: INTERNATIONAL NORMALIZED RATIO 1.3 RATIO; PROTHROMBIN TIME - PATIENT 14.8 SEC (9.8-11.6)
[2016-04-18] MEDS: LACTULOSE SYRUP 20 GM/30 ML CUP PO SCH ×2 (09:00→20:03)
[2016-04-18] MEDS: SENNOSIDES SYRUP 8.8 MG/5 ML CUP PO SCH (09:00)
--- NOTE | 2016-04-18 09:00 | HHI.CCPN ---
Subjective Remarks/Hospital Course Late entry: - for service provided April 17, 2016 - original note not saved Patient is an 80 year-old male with past medical history significant for coronary artery disease status post stents in 2008, chronic atrial fibrillation/ flutter status post ablation by Dr. Murrieta in 2012, hypertension, diastolic heart failure, history of aortic and tricuspid regurgitation. He was brought in to the [place] ER by EMS status post CODE BLUE, and STEMI alert called on the patient on scene. He was at [facility] with his about to order food when he suddenly appeared ill, mumbled some words and collapsed. EMS arrived in less than 5 minutes and found patient to be in ventricular fibrillation, he was immediately defibrillated and patient went into PEA. ACLS protocol was followed and it took approximately 20 minutes from the beginning of CPR to gain spontaneous circulation. Patient remained comatose after ROSC and was intubated with LMA on scene. Endotracheally intubated in ER. Case was discussed with Dr. Capellan he did not think patient meets STEMI criteria. EKG showed incomplete left bundle branch block and frequent PVCs. Cardiac enzymes are pending at this time. I was contacted for admission and consideration of induced hypothermia. I evaluated the patient in the ED. Patient had received 20 mg of IV etomidate and 100 mg of succinylcholine at 2:01 PM, I examined him at 2:50 PM approximately 45 minutes after these medications were given. Patient is spontaneously breathing above the vent even though comatose. Pupils are 5 mm briskly reactive bilaterally. Patient has no purposeful movements but he does slightly withdraw bilateral upper extremities to central pain. In discussion with Dr. capellan and family (patient's and son), decision was made to place patient on induced hypothermia for neuro protection after cardiac arrest. Patient was emergently moved to the CAT scan, CT of the head was found to be negative, he was then moved to the ICU and I placed the right femoral heat exchange catheter. Patient will be emergently started on induced hypothermia protocol SUBJ 04/11/16: Initiated on induced hypothermia yesterday, achieved target temperature at 11 PM, rewarming restarted 11 PM today. Patient currently on 2 mics per minute of Levophed for hypotension, dopamine was weaned off but restarted low-dose already his urine output. Neuromuscular paralysis limits neuro exam, pupils remain reactive. Troponin peak of 1.35, lactic acid was 3.7. INR 3.2 04/12/16: Rewarming completed at 7 AM today. Patient examined off sedation. Attempts to open eyes off propofol, did not track. No spontaneous extremity movements slightly withdraws upper extremity to central pain. Will check EEG 04/13/16: Remains intubated sedated with propofol. Opens eyes to verbal commands moves all extremities. Slowly improving neuro exam. Failed C Pap trial secondary to tachypnea. Spiking fever up to 101 04/14/16: Precedex held 5 minutes before exam. Patient appears to be waking up more, tracking. CXR continues to show pulmonary edema. Moves all extremities not following commands. Additional 2 mg Bumex given followed by Bumex 1 mg every 12 hours 04/15 Patient was extubated then reintubated yesterday for resp distress. Sedated with Diprivan and fentanyl. Afebrile. MRI brain last night showed minimal white matter ischemic changes. No significant abnormality. 04/16 Patient remains sedated with Fentanyl and intubated. Off Diprivan. TF held overnight for high residuals. Off Diprivan drip. 04/17 no acute issues overnight, patient remains neurologically altered Objective Vital Signs Date Time Temp Pulse Resp B/P Pulse Ox O2 Delivery O2 Flow Rate FiO2 04/18/16 06:00 80 04/18/16 04:13 97 45 04/18/16 04:00 100.0 23 130/76 04/14/16 12:16 Face Tent Intake and Output 04/17/16 04/17/16 04/18/16 08:00 16:00 00:00 Intake Total 189 ml 889 ml 400 ml Output Total 200 ml 950 ml 350 ml Balance -11 ml -61 ml 50 ml Result Diagram: 04/17/16 0518 04/17/16 0518 Other Results Microbiology Date/Time Procedure Status Source Growth 04/15/16 16:20 Gram Stain - Final Complete Sputum Endotracheal 04/15/16 16:20 Sputum Culture - Final Complete Klebsiella Pneumoniae 04/15/16 16:20 Urine Culture - Final Complete Urine Catheterized Urine NO GROWTH IN 48 HOURS. Imaging Last Impressions Abdomen X-Ray 04/15/16 0000 Signed Impressions: Service Date/Time: Saturday, April 16, 2016 00:06 - CONCLUSION: No acute disease. Néstor Marquez MD Chest X-Ray 04/14/16 0600 Signed Impressions: Service Date/Time: Thursday, April 14, 2016 02:47 - CONCLUSION: Bilateral perihilar and lower lung zone interstitial opacity remains present and could represent pulmonary edema. The small left pleural effusion documented on the prior study is not seen today. Rick Bejarano MD Brain MRI 04/14/16 0000 Signed Impressions: Service Date/Time: Thursday, April 14, 2016 22:05 - CONCLUSION: Minimal white matter ischemic changes. No significant abnormality. Bertin Mederos MD Head CT 04/10/16 0000 Signed Impressions: Service Date/Time: Sunday, April 10, 2016 15:15 - CONCLUSION: Stable appearance of the brain without evidence of acute infarct, hemorrhage, mass or edema. Stable mild ventricular enlargement.. Aman Galarza MD Objective Remarks GENERAL: Patient is 80 yo intubated and sedated SKIN: Warm and dry. HEAD: Normocephalic. EYES: No scleral icterus. No injection or drainage. NECK: Supple, trachea midline. No JVD or lymphadenopathy. CARDIOVASCULAR: Regular rate and rhythm without murmurs, gallops, or rubs. RESPIRATORY: Breath sounds equal bilaterally. No accessory muscle use. GASTROINTESTINAL: Abdomen soft, non-tender, nondistended. MUSCULOSKELETAL: No cyanosis, or edema. Neuro: sedated Date of Insertion: Apr 10, 2016 Side: Right Location: Femoral A/P Assessment and Plan Respiratory failure -Continue with vent support keep sat >92% -DuoNeb every 6 hours when necessary, ventilator bundle -Empiric Zosyn for probable aspiration pneumonitis -SBT daily if neurologically improved Possible anoxic brain injury following cardiac arrest -Completed induced hypothermia per protocol at 0700 AM 04/12/16 -EEG moderate encephalopathy, no seizures -On Fentanyl infusion for sedation. Daily sedation vacation. -MRI brain 04/14: minimal white matter ischemic changes. No significant abnormality. - Consult neurology Obstructive sleep apnea - Not an issue while intubated Witnessed V FIB arrest followed by PEA - Probable NSTEMI vs Demand ischemia - History of CAD with stents - Pulmonary edema - Ischemic cardiomyopathy - 2-D echo 04/10 EF 30-35%, diffuse hypokinesis PASP 67, mild tricuspid and aortic regurgitation - On Bumex 1 mg IV q12 with KCL supplementation - Cardiology Dr. Minor, unlikely to be a STEMI. - Ischemic workup if sufficient neurological improvement - Troponin peaked at 1.35, continue aspirin. Atrial fibrillation with RVR - INR subtherapeutic Coumadin dosing by pharmacy - history of ablation - Rate controlled Nutrition - Continue Tube feeds with Jevity advance to goal rate 45ml/hr as abdiel - KUB abdomen : No acute disease - IV Protonix for GI prophylaxis - Continue with bowel regimen - On Senna, Lactulose, add Reglan. Aspiration pneumonia - Cultures positive for Klebsiella - Sensitive to Zosyn - Continue to complete course of 10 days Hypoglycemia - Sliding-scale insulin DVT GI prophylaxis: - Bilateral lower extremity SCDs. Coumadin Protonix 40 mg IV daily LINES: -Heat exchange catheter placed right femoral vein-removed 04/13/16 Palliative care eval to asses with goals of care CC time 30 min excluding procedures Woody Benavides MD Apr 18, 2016 09:00
--- NOTE | 2016-04-18 09:03 | HHI.CCPN ---
Subjective Remarks/Hospital Course Patient is an 80 year-old male with past medical history significant for coronary artery disease status post stents in 2008, chronic atrial fibrillation/ flutter status post ablation by Dr. Murrieta in 2012, hypertension, diastolic heart failure, history of aortic and tricuspid regurgitation. He was brought in to the [place] ER by EMS status post CODE BLUE, and STEMI alert called on the patient on scene. He was at [facility] with his about to order food when he suddenly appeared ill, mumbled some words and collapsed. EMS arrived in less than 5 minutes and found patient to be in ventricular fibrillation, he was immediately defibrillated and patient went into PEA. ACLS protocol was followed and it took approximately 20 minutes from the beginning of CPR to gain spontaneous circulation. Patient remained comatose after ROSC and was intubated with LMA on scene. Endotracheally intubated in ER. Case was discussed with Dr. Capellan he did not think patient meets STEMI criteria. EKG showed incomplete left bundle branch block and frequent PVCs. Cardiac enzymes are pending at this time. I was contacted for admission and consideration of induced hypothermia. I evaluated the patient in the ED. Patient had received 20 mg of IV etomidate and 100 mg of succinylcholine at 2:01 PM, I examined him at 2:50 PM approximately 45 minutes after these medications were given. Patient is spontaneously breathing above the vent even though comatose. Pupils are 5 mm briskly reactive bilaterally. Patient has no purposeful movements but he does slightly withdraw bilateral upper extremities to central pain. In discussion with Dr. capellan and family (patient's and son), decision was made to place patient on induced hypothermia for neuro protection after cardiac arrest. Patient was emergently moved to the CAT scan, CT of the head was found to be negative, he was then moved to the ICU and I placed the right femoral heat exchange catheter. Patient will be emergently started on induced hypothermia protocol SUBJ 04/11/16: Initiated on induced hypothermia yesterday, achieved target temperature at 11 PM, rewarming restarted 11 PM today. Patient currently on 2 mics per minute of Levophed for hypotension, dopamine was weaned off but restarted low-dose already his urine output. Neuromuscular paralysis limits neuro exam, pupils remain reactive. Troponin peak of 1.35, lactic acid was 3.7. INR 3.2 04/12/16: Rewarming completed at 7 AM today. Patient examined off sedation. Attempts to open eyes off propofol, did not track. No spontaneous extremity movements slightly withdraws upper extremity to central pain. Will check EEG 04/13/16: Remains intubated sedated with propofol. Opens eyes to verbal commands moves all extremities. Slowly improving neuro exam. Failed C Pap trial secondary to tachypnea. Spiking fever up to 101 04/14/16: Precedex held 5 minutes before exam. Patient appears to be waking up more, tracking. CXR continues to show pulmonary edema. Moves all extremities not following commands. Additional 2 mg Bumex given followed by Bumex 1 mg every 12 hours 04/15 Patient was extubated then reintubated yesterday for resp distress. Sedated with Diprivan and fentanyl. Afebrile. MRI brain last night showed minimal white matter ischemic changes. No significant abnormality. 04/16 Patient remains sedated with Fentanyl and intubated. Off Diprivan. TF held overnight for high residuals. Off Diprivan drip. 04/17 no acute issues overnight, patient remains neurologically altered 04/18 remains hemodynamically stable overnight, not neurologically appropriate Objective Vital Signs Date Time Temp Pulse Resp B/P Pulse Ox O2 Delivery O2 Flow Rate FiO2 04/18/16 06:00 80 04/18/16 04:13 97 45 04/18/16 04:00 100.0 23 130/76 04/14/16 12:16 Face Tent Intake and Output 04/17/16 04/17/16 04/18/16 08:00 16:00 00:00 Intake Total 189 ml 889 ml 400 ml Output Total 200 ml 950 ml 350 ml Balance -11 ml -61 ml 50 ml Result Diagram: 04/17/16 0518 04/17/16 0518 Other Results Microbiology Date/Time Procedure Status Source Growth 04/15/16 16:20 Gram Stain - Final Complete Sputum Endotracheal 04/15/16 16:20 Sputum Culture - Final Complete Klebsiella Pneumoniae 04/15/16 16:20 Urine Culture - Final Complete Urine Catheterized Urine NO GROWTH IN 48 HOURS. Imaging Last Impressions Abdomen X-Ray 04/15/16 0000 Signed Impressions: Service Date/Time: Saturday, April 16, 2016 00:06 - CONCLUSION: No acute disease. Néstor Marquez MD Chest X-Ray 04/14/16 0600 Signed Impressions: Service Date/Time: Thursday, April 14, 2016 02:47 - CONCLUSION: Bilateral perihilar and lower lung zone interstitial opacity remains present and could represent pulmonary edema. The small left pleural effusion documented on the prior study is not seen today. Rick Bejarano MD Brain MRI 04/14/16 0000 Signed Impressions: Service Date/Time: Thursday, April 14, 2016 22:05 - CONCLUSION: Minimal white matter ischemic changes. No significant abnormality. Bertin Mederos MD Head CT 04/10/16 0000 Signed Impressions: Service Date/Time: Sunday, April 10, 2016 15:15 - CONCLUSION: Stable appearance of the brain without evidence of acute infarct, hemorrhage, mass or edema. Stable mild ventricular enlargement.. Aman Galarza MD Objective Remarks GENERAL: Patient is 80 yo intubated and sedated SKIN: Warm and dry. HEAD: Normocephalic. EYES: No scleral icterus. No injection or drainage. NECK: Supple, trachea midline. No JVD or lymphadenopathy. CARDIOVASCULAR: Regular rate and rhythm without murmurs, gallops, or rubs. RESPIRATORY: Breath sounds equal bilaterally. No accessory muscle use. GASTROINTESTINAL: Abdomen soft, non-tender, nondistended. MUSCULOSKELETAL: No cyanosis, or edema. Neuro: sedated Date of Insertion: Apr 10, 2016 Side: Right Location: Femoral A/P Assessment and Plan Respiratory failure - Continue mechanical ventilation - DuoNeb every 6 hours when necessary, ventilator bundle - Zosyn for Klebsiella pneumonia - SBT daily when neurologically improved Possible anoxic brain injury following cardiac arrest - Completed induced hypothermia per protocol at 0700 AM 04/12/16 - EEG moderate encephalopathy, no seizures - On Fentanyl infusion for sedation. Daily sedation vacation. - MRI brain 04/14: minimal white matter ischemic changes. No significant abnormality. - Consult neurology pending Obstructive sleep apnea - Not an issue while intubated Witnessed V FIB arrest followed by PEA - Probable NSTEMI vs Demand ischemia - History of CAD with stents - Pulmonary edema - Ischemic cardiomyopathy - 2-D echo 04/10 EF 30-35%, diffuse hypokinesis PASP 67, mild tricuspid and aortic regurgitation - On Bumex 1 mg IV q12 with KCL supplementation - Cardiology Dr. Capellan, unlikely to be a STEMI. - Ischemic workup if sufficient neurological improvement - Troponin peaked at 1.35, continue aspirin. - Cardiology input appreciated Atrial fibrillation with RVR - INR subtherapeutic Coumadin dosing by pharmacy - history of ablation - Rate controlled Nutrition - Continue Tube feeds with Jevity advance to goal rate 45ml/hr as abdiel - KUB abdomen : No acute disease - IV Protonix for GI prophylaxis - Continue with bowel regimen - On Senna, Lactulose, add Reglan. Aspiration pneumonia - Cultures positive for Klebsiella - Sensitive to Zosyn - Continue to complete course of 10 days Hypoglycemia - Sliding-scale insulin DVT GI prophylaxis: - Bilateral lower extremity SCDs. Coumadin Protonix 40 mg IV daily LINES: -Heat exchange catheter placed right femoral vein-removed 04/13/16 Palliative care eval to asses with goals of care CC time 30 min excluding procedures Woody Benavides MD Apr 18, 2016 09:02
[2016-04-18] MEDS: CHLORHEXIDINE 0.12% (ORAL KIT) 15 ML CUP MT SCH ×2 (10:01→20:13)
[2016-04-18] MEDS: SODIUM CHLORIDE 0.9% FLUSH 5 ML FLUSH IVF SCH ×2 (10:02→20:09)
[2016-04-18] MEDS: PANTOPRAZOLE SODIUM 40 MG VIAL IV SCH (10:02)
[2016-04-18] MEDS: ASPIRIN 81 MG CHEW TAB CHEW SCH (10:02)
[2016-04-18] MEDS: ENOXAPARIN SODIUM 40 MG/0.4 ML SYRINGE SQ SCH (10:20)
--- NOTE | 2016-04-18 12:40 | HHI.HCPN ---
Reason for visit a. To assist with evaluation and management of symptoms including: shortness of breath and restlessness. b. To assist medical decision maker(s) with: better understanding of current medical conditions; weighing benefits/burdens of medical treatment options; making medical treatment decisions. Subjective/Interval History Palliative care f/u for clarifications of goals of care and symptom management. Patient seen in ICU, remains intubated on mechanical ventilation. Was able to tolerate CPAP trial yesterday for most of the day. Max temp today 101.4 axillary , stable HR and BP. Ongoing tube feedings via OG tube, appears to be tolerating well. No family at bedside. Plan to continue CPAP trial today, failed today secondary to tachypnea. Patient appears comfortable. Not opening eyes to voice or tactile stimuli, remains sedated on Precedex. Telephone call to patient's , left message on voicemail. Palliative care to follow what with family this afternoon for medical update and emotional support. Family meeting 14:15 to 15:06: Met with patient's and sons Luis Fernando and Carloz. Medical update provided. Son Luis Fernando has just arrived from [place]. Reviewed events leading to this hospitalization and medical management/events since arrival. Reviewed rationale for induced hypothermia protocol and current medical management. Discussed concerns regarding patient's respiratory status, not tolerating CPAP trials and neurological status with questionable anoxic brain injury. Discussed trach and PEG in the setting of ARDS. Family with a very good understanding of patient's critical condition and risks for further decline and . Family verbalized that patient would be against trach and PEG if his neuro prognosis is poor or there is no chance of an improved quality of life. Discussed aggressive care versus comfort-directed care/symptom management. Family wishing to allow an additional 24h and to speak with underwriting support manager and neurology to discuss prognosis. All questions were answered in great detail. Ongoing emotional support and active listening provided to family. Telephone conversation with Dr. Encarnacion. He feels that patient's cardiac condition is stable at this time and recommends reconsulting neuro for long- term prognosis and additional recommendations. Dr. Hernandez will be reconsulted today. Palliative care to f/u tomorrow. . Family/friend interactions See interval note. Advance Directives Living Will: Copy in medical record Health Care Surrogate: Copy in medical record Durable Power of Communication Clerk: Completed, but not made available Advance Directive Specifics Date completed: 02/13/2009. . Health Care Surrogate(s): Healthcare surrogate listed as patient's Martha Chin. Alternate healthcare surrogate listed as Milady Salinas -daughter. . Documented care wishes: Living will completed. Known wishes to include his desire not to have his dying prolonged artificially under the circumstances of the terminal condition, and end stage condition, or a persistent vegetative state. . Significant change in goals: Alternate code/intubation only. Continue aggressive care short of NO CARDIAC CODE in order to allow time for clinical/neurological improvement. . Objective Vital Signs Date Time Temp Pulse Resp B/P Pulse Ox O2 Delivery O2 Flow Rate FiO2 04/18/16 12:02 99 45 04/18/16 11:55 45 04/18/16 11:51 93 45 04/18/16 10:00 86 04/18/16 08:51 97 45 04/18/16 08:00 45 04/18/16 08:00 101.4 84 24 132/69 97 04/18/16 08:00 82 04/18/16 06:00 80 04/18/16 04:13 97 45 04/18/16 04:00 86 04/18/16 04:00 45 04/18/16 04:00 100.0 86 23 130/76 96 04/18/16 02:00 89 04/18/16 01:18 94 45 04/18/16 00:00 89 04/18/16 00:00 100.0 89 21 140/66 95 04/18/16 00:00 45 04/17/16 22:00 80 04/17/16 21:11 96 45 04/17/16 20:00 100.9 72 21 130/62 97 04/17/16 20:00 45 04/17/16 20:00 72 04/17/16 18:00 69 04/17/16 16:20 96 45 04/17/16 16:00 72 04/17/16 16:00 101.2 72 12 136/64 97 04/17/16 16:00 45 04/17/16 14:00 66 Physical Exam CONSTITUTIONAL/GENERAL: This is an adequately nourished patient, in no apparent distress. Intubated on mechanical ventilation. TUBES/LINES/DRAINS: ETT, OG, SCD's, Lira cath, soft restraints. SKIN: No jaundice, rashes, or lesions. No wounds seen anteriorly. Skin temperature appropriate. Not diaphoretic. HEAD: Atraumatic. Normocephalic. EYES: Pupils equal and round and reactive. No scleral icterus. No injection or drainage. ENT: Unable to assess his hearing secondary to clinical condition. Nose without bleeding or purulent drainage. Unable to assess throat due to ETT/OG. NECK: Trachea midline. Supple. CARDIOVASCULAR: Irregular rate and rhythm. No JVD. Peripheral pulses symmetric.+ 2 edema to bilateral upper extremities. RESPIRATORY/CHEST: Symmetric, unlabored respirations. Coarse to auscultation. Breath sounds equal bilaterally. Intubated on mechanical ventilation. GASTROINTESTINAL: Abdomen large, round, soft. Unable to appreciate hepato- splenomegaly secondary to body habitus. Bowel sounds present. Ongoing tube feeding via OG tube. GENITOURINARY: Without palpable bladder distension. Lira catheter in place. MUSCULOSKELETAL: Extremities without clubbing, cyanosis, or edema. No mottling or clubbing. NEUROLOGICAL: Sedated, intubated on mechanical ventilation. Not opening eyes to voice or tactile stimuli. PSYCHIATRIC: Unable to assess secondary to clinical condition. Appears calm. . Diagnostic Tests Laboratory Laboratory Tests Test 04/15/16 04/16/16 04/16/16 04/16/16 16:20 05:05 05:35 05:55 Urine Color LIGHT-ORANGE (YELLW/STRAW) Urine Turbidity HAZY (CLEAR) Urine pH 5.5 (5.0-8.5) Urine Specific [place] 1.026 (1.002-1.035) Urine Protein 100 mg/dL (NEG-TRACE) Urine Glucose (UA) NEG mg/dL (NEG) Urine Ketones TRACE mg/dL (NEG) Urine Occult Blood LARGE (NEG) Urine Nitrite NEG (NEG) Urine Bilirubin NEG (NEG) Urine Urobilinogen LESS THAN 2.0 MG/DL (LESS THAN 2.0) Urine Leukocyte Esterase SMALL (NEG) Urine RBC /hpf (0-3) Urine WBC 15 /hpf (0-5) Urine Squamous Epithelial 1 /hpf (0-5) Cells Urine Bacteria OCC /hpf (NONE) Urine Hyaline Casts 7 /lpf (RARE) Urine Mucus FEW /lpf (OCC) Microscopic Urinalysis Comment CATH-CULTURE IND Prothrombin Time 15.9 SEC (9.8-11.6) Prothromb Time International 1.4 RATIO Ratio Sodium Level 146 MEQ/L (136-145) Potassium Level 3.4 MEQ/L (3.5-5.1) Chloride Level 107 MEQ/L (98-107) Carbon Dioxide Level 32.9 MEQ/L (21.0-32.0) Anion Gap 6 MEQ/L (5-15) Blood Urea Nitrogen 18 MG/DL (7-18) Creatinine 1.08 MG/DL (0.60-1.30) Estimat Glomerular Filtration 65 ML/MIN (>89) Rate Random Glucose 123 MG/DL (74-106) Calcium Level 8.7 MG/DL (8.5-10.1) Total Bilirubin 2.8 MG/DL (0.2-1.0) Aspartate Amino Transf 29 U/L (15-37) (AST/SGOT) Alanine Aminotransferase 34 U/L (12-78) (ALT/SGPT) Alkaline Phosphatase 47 U/L (45-117) Total Protein 7.2 GM/DL (6.4-8.2) Albumin 2.9 GM/DL (3.4-5.0) White Blood Count 7.9 TH/MM3 (4.0-11.0) Red Blood Count 4.59 MIL/MM3 (4.50-5.90) Hemoglobin 14.0 GM/DL (13.0-17.0) Hematocrit 41.5 % (39.0-51.0) Mean Corpuscular Volume 90.5 FL (80.0-100.0) Mean Corpuscular Hemoglobin 30.5 PG (27.0-34.0) Mean Corpuscular Hemoglobin 33.7 % Concent (32.0-36.0) Red Cell Distribution Width 14.1 % (11.6-17.2) Platelet Count 198 TH/MM3 (150-450) Mean Platelet Volume 9.3 FL (7.0-11.0) Neutrophils (%) (Auto) 80.4 % (16.0-70.0) Lymphocytes (%) (Auto) 5.3 % (9.0-44.0) Monocytes (%) (Auto) 12.6 % (0.0-8.0) Eosinophils (%) (Auto) 1.2 % (0.0-4.0) Basophils (%) (Auto) 0.5 % (0.0-2.0) Neutrophils # (Auto) 6.4 TH/MM3 (1.8-7.7) Lymphocytes # (Auto) 0.4 TH/MM3 (1.0-4.8) Monocytes # (Auto) 1.0 TH/MM3 (0-0.9) Eosinophils # (Auto) 0.1 TH/MM3 (0-0.4) Basophils # (Auto) 0.0 TH/MM3 (0-0.2) CBC Comment DIFF FINAL Differential Comment Test 04/17/16 04/18/16 05:18 04:40 White Blood Count 7.4 TH/MM3 (4.0-11.0) Red Blood Count 4.59 MIL/MM3 (4.50-5.90) Hemoglobin 14.0 GM/DL (13.0-17.0) Hematocrit 40.8 % (39.0-51.0) Mean Corpuscular Volume 88.7 FL (80.0-100.0) Mean Corpuscular Hemoglobin 30.5 PG (27.0-34.0) Mean Corpuscular Hemoglobin 34.4 % Concent (32.0-36.0) Red Cell Distribution Width 14.1 % (11.6-17.2) Platelet Count 175 TH/MM3 (150-450) Mean Platelet Volume 9.1 FL (7.0-11.0) Neutrophils (%) (Auto) 80.3 % (16.0-70.0) Lymphocytes (%) (Auto) 5.9 % (9.0-44.0) Monocytes (%) (Auto) 12.2 % (0.0-8.0) Eosinophils (%) (Auto) 1.2 % (0.0-4.0) Basophils (%) (Auto) 0.4 % (0.0-2.0) Neutrophils # (Auto) 6.0 TH/MM3 (1.8-7.7) Lymphocytes # (Auto) 0.4 TH/MM3 (1.0-4.8) Monocytes # (Auto) 0.9 TH/MM3 (0-0.9) Eosinophils # (Auto) 0.1 TH/MM3 (0-0.4) Basophils # (Auto) 0.0 TH/MM3 (0-0.2) CBC Comment DIFF FINAL Differential Comment Prothrombin Time 16.7 SEC 14.8 SEC (9.8-11.6) (9.8-11.6) Prothromb Time International 1.5 RATIO 1.3 RATIO Ratio Sodium Level 144 MEQ/L (136-145) Potassium Level 3.5 MEQ/L (3.5-5.1) Chloride Level 107 MEQ/L (98-107) Carbon Dioxide Level 28.6 MEQ/L (21.0-32.0) Anion Gap 8 MEQ/L (5-15) Blood Urea Nitrogen 22 MG/DL (7-18) Creatinine 1.14 MG/DL (0.60-1.30) Estimat Glomerular Filtration 61 ML/MIN (>89) Rate Random Glucose 140 MG/DL (74-106) Calcium Level 8.7 MG/DL (8.5-10.1) Phosphorus Level 2.0 MG/DL (2.5-4.9) Magnesium Level 2.6 MG/DL (1.5-2.5) Result Diagram: 04/17/1651704/17/16517 Microbiology Microbiology Date/Time Procedure Status Source Growth 04/15/16 16:20 Gram Stain - Final Complete Sputum Endotracheal 04/15/16 16:20 Sputum Culture - Final Complete Klebsiella Pneumoniae 04/15/16 16:20 Urine Culture - Final Complete Urine Catheterized Urine NO GROWTH IN 48 HOURS. 04/15/16 17:13 Aerobic Blood Culture - Preliminary Resulted Blood Peripheral NO GROWTH IN 3 DAYS 04/15/16 17:13 Anaerobic Blood Culture - Preliminary Resulted Blood Peripheral NO GROWTH IN 3 DAYS 04/15/16 17:18 Aerobic Blood Culture - Preliminary Resulted Blood Peripheral NO GROWTH IN 3 DAYS 04/15/16 17:18 Anaerobic Blood Culture - Preliminary Resulted Blood Peripheral NO GROWTH IN 3 DAYS Procedures * 04/14/16 -intubation. * 04/14/16 -extubation. * 04/13/16 -right femoral central line removal. * 04/10/16 -right femoral central line placement. * 04/10/16 -intubation. . Assessment and Plan Disease Oriented Problem List: (1) Acute respiratory failure (2) Cardiac arrest (3) Ventricular fibrillation (4) Probable anoxic brain injury Symptom Scale: (1) Shortness of breath 0-10 Scale: Unable to quantify Comment: Remains intubated on mechanical ventilation. Ongoing attempts at CPAP trial. (2) Debility 0-10 Scale: Unable to quantify Comment: Secondary to acute illness. (3) Restlessness Comment: Secondary to acute illness, and mechanical intubation. Currently on Precedex drip. Pertinent Non-Medical Issues Psychosocial: . Retired. has 3 children. Spiritual: No pentecostalism affiliations. Legal: Living well and healthcare surrogate completed. Ethical issues impacting care: No ethical issues have been identified. . Important Contacts Martha Chin [phone]. Son Carloz [phone]. Prognosis Mr. Chin is an 80-year-old male with a medical history significant for atrial fibrillation, diastolic heart failure and prior IA who presented to the ED on 04/10/16 via EMS status post witnessed cardiac arrest. Patient remains status induce hypothermia protocol, questionable anoxic brain injury. Patient overall prognosis is guarded. . Code Status: Alternative Code Plan * CODE STATUS: Alternate code/intubation only. * Patient incapacitated for medical decision-making secondary to clinical condition, unclear if he will regain. Healthcare surrogate paperwork documents provided by family, patient remained his Martha Long as HCS. * GOALS OF CARE: Alternate code/intubation only. Continue aggressive care short of NO CARDIAC CODE in order to allow time for clinical/neurological improvement. Family considering transition to comfort-directed care if no clinical/neuro improvement/poor prognosis for a meaningful neurological recovery. No trach and PEG. Family aware that patient remains critically ill and is at high risk of further decline, complications and . Family verbalized feeling optimistic about his neurological recovery, however, aware of patient's critical condition. Palliative care to meet with family for f/u on 04/19/16. * SYMPTOMS: == Shortness of breath: Remains intubated on mechanical ventilation. Ongoing CPAP trials. == Restlessness: Secondary to acute illness and mechanical ventilation, remains on Precedex drip. * Case discussed with bedside RN. * Palliative care contact information has been provided to family. * All questions have been answered in great detail. * Palliative care will continue to follow up with this patient/family for further clarification of goals of care. . Time Spent Time Periods: Family meeting from 14:15 to 15:06. Total Floor Time (mins): 79 (Total time to include review of medical records, physical exam, family meeting from 14:15 to 15:06 and case discussion with Dr. Encarnacion and bedside RN. ) Face to Face Time (mins): 51 >50% Counseling/Coord of Care: Yes Attestation To help prompt me to consider important information that might be impacting today's encounter and assessment, information from prior notes written by myself or my colleagues may have been "brought forward" into today's note. My signature on this note, however, is an attestation that I personally performed the exam, history, and/or decision-making noted today, and, unless otherwise indicated, the interactions with patient, family, and staff as well as the review of records all occurred today. I also attest that the listed assessment and stated plan reflect my best clinical judgment today based on the combination of historical information, prior notes, and today's exam/ interactions. When time spent is documented, it refers only to time spent today by the signer, or if indicated, combined time spent today by collaborating physician/nurse practitioner. Letty De Santiago Apr 18, 2016 12:40
--- NOTE | 2016-04-18 19:58 | HHI.PR ---
Review/Management Diagnosis probable hypoxic encephalopathy Diagnosis/Plan: Subjective Subjective Comments No acute events reported Active Medications Current Medications Medications (Trade) Dose Ordered Sig/Stephanie Route Start Time Stop Time Status Last Admin (Tylenol) 650 mg Q6H PRN PO 04/10/16 14:30 04/18/16 10:03 (Protonix Inj) 40 mg DAILY IV 04/11/16 09:00 04/18/16 10:02 Miscellaneous Information 1 [id number] XX 04/10/16 14:30 04/10/16 14:30 (Chlorhexidine 2% Cloth) Taper DAILY@04 TOP 04/11/16 04:00 04/07/17 03:59 04/15/16 22:12 Chlorhexidine Gluconate 3 pack 3 pack UNSCH PRN TOP 04/10/16 14:30 Potassium Chloride 100 ml @ 50 mls/hr Q2H PRN IV 04/10/16 14:30 (KCl 20 Meq Premix Inj) 100 ml @ 50 mls/hr Q2H PRN IV 04/10/16 14:30 Potassium Chloride 40 meq 40 meq UNSCH PRN PO/TUBE 04/10/16 14:30 Potassium Chloride 100 ml @ 25 mls/hr UNSCH PRN IV 04/10/16 14:30 Potassium Chloride 100 ml @ 50 mls/hr Q2H PRN IV 04/10/16 14:30 04/16/16 16:51 (Magnesium Sulfate Inj/NS Inj) 100 ml @ 50 mls/hr UNSCH PRN IV 04/10/16 14:30 Magnesium Oxide 800 mg 800 mg UNSCH PRN PO 04/10/16 14:30 (Magnesium Sulfate Inj/NS Inj) 100 ml @ 50 mls/hr UNSCH PRN IV 04/10/16 14:30 Potassium Phosphate 2000 mg 2,000 mg Q4H PRN PO 04/10/16 14:30 (Sodium Phosphate Inj/NS 250 ml Inj) 250 ml @ 42 mls/hr UNSCH PRN IV 04/10/16 14:30 04/18/16 10:00 (KCl 40 Meq/30 ml Liq) 40 meq UNSCH PRN PO/TUBE 04/10/16 14:30 Potassium Phosphate 2000 mg 2,000 mg UNSCH PRN PO/TUBE 04/10/16 14:30 (Potassium Phosphate Inj/NS 250 ml Inj) 260 ml @ 42 mls/hr UNSCH PRN IV 04/10/16 14:30 04/17/16 08:59 Fentanyl Citrate 50 mcg 50 mcg Q1H PRN IV 04/10/16 15:30 04/14/16 01:09 (Magnesium Sulfate Inj/NS 250 ml Inj) 250 ml @ 62.5 mls/hr Q4H PRN IV 04/10/16 15:30 (Lacrilube Opht Oint) 1 applic Q4H PRN EACH EYE 04/10/16 15:30 (NS Flush) 2 ml BID IVF 04/10/16 21:00 04/18/16 10:02 IV Flush 2 ml 2 ml UNSCH PRN IVF 04/10/16 15:30 04/12/16 22:45 Miscellaneous Information 0 ml @ 0 mls/hr UNSCH IV 04/10/16 15:30 (Zosyn 3.375 Gm Premix) 50 ml @ 100 mls/hr Q6H IV 04/10/16 17:00 04/18/16 16:27 (Aspirin Chew) 81 mg DAILY CHEW 04/10/16 16:45 04/18/16 10:02 Chlorhexidine Gluconate 15 ml 15 ml BID@08,20 MT 04/14/16 20:00 04/18/16 10:01 Propofol 100 ml @ 0 mls/hr TITRATE IV 04/14/16 13:00 04/15/16 06:06 (fentaNYL DRIP) 250 ml @ 0 mls/hr TITRATE IV 04/14/16 13:00 04/16/16 04:11 (Senna Liq) 8.8 mg DAILY PO 04/15/16 17:15 04/17/16 08:55 (Lactulose Liq) 15 ml BID PO 04/15/16 17:15 04/17/16 20:38 Metoclopramide HCl 5 mg 5 mg Q8H PRN IV PUSH 04/16/16 08:45 (Precedex Inj) 50 ml @ 0 mls/hr TITRATE IV 04/16/16 09:15 04/18/16 16:27 (Lovenox Inj) 40 mg Q24H SQ 04/16/16 11:00 04/18/16 10:20 Allergies Allergies Coded Allergies No Known Allergies (Verified04/10/16) Exam I&O / VS 04/17/16 04/17/16 04/18/16 15:00 23:00 07:00 Intake Total 889 ml 400 ml Output Total 950 ml 350 ml Balance -61 ml 50 ml Intake Oral 0 ml IV Total 507 ml 170 ml Tube Feeding 182 ml 190 ml Tube Irrigant 40 ml Other 200 ml Output Urine Total 950 ml 350 ml Stool Total 0 ml # Bowel Movements 0 Vital Signs Date Time Temp Pulse Resp B/P Pulse Ox O2 Delivery O2 Flow Rate FiO2 04/18/16 18:00 75 04/18/16 16:09 98 45 04/18/16 16:00 100.5 75 19 117/59 96 04/18/16 16:00 75 04/18/16 16:00 45 04/18/16 14:00 77 04/18/16 12:02 99 45 04/18/16 12:00 45 04/18/16 12:00 94 04/18/16 12:00 100.6 94 36 149/68 96 04/18/16 11:55 45 04/18/16 11:51 93 45 04/18/16 11:03 24 04/18/16 10:00 86 04/18/16 08:51 97 45 04/18/16 08:00 45 04/18/16 08:00 101.4 84 24 132/69 97 04/18/16 08:00 82 04/18/16 06:00 80 04/18/16 04:13 97 45 04/18/16 04:00 86 04/18/16 04:00 45 04/18/16 04:00 100.0 86 23 130/76 96 04/18/16 02:00 89 04/18/16 01:18 94 45 04/18/16 00:00 89 04/18/16 00:00 100.0 89 21 140/66 95 04/18/16 00:00 45 04/17/16 22:00 80 04/17/16 21:11 96 45 04/17/16 20:00 100.9 72 21 130/62 97 04/17/16 20:00 45 04/17/16 20:00 72 Exam Comments opens eyes to command but does not follow any more complex commands perrl, eomi motor--no spontaneous movement and no withdrawal, no focal deficit and no posturing. Objective Radiology Results MRI brain---chronic ischemic white matter change, no acute change Micro and Labs Laboratory Tests Test 04/18/16 04:40 Prothrombin Time 14.8 Prothromb Time International 1.3 Ratio Date/Time Procedure Status Source Growth 04/15/16 17:18 Aerobic Blood Culture - Preliminary Resulted Blood Peripheral NO GROWTH IN 3 DAYS 04/15/16 17:18 Anaerobic Blood Culture - Preliminary Resulted Blood Peripheral NO GROWTH IN 3 DAYS 04/15/16 16:20 Urine Culture - Final Complete Urine Catheterized Urine NO GROWTH IN 48 HOURS. 04/15/16 16:20 Gram Stain - Final Complete Sputum Endotracheal 04/15/16 16:20 Sputum Culture - Final Complete Klebsiella Pneumoniae Diagnostic Tests EEG---moderate diffuse slowing with no epileptiform features Leon Sherman PhD Apr 18, 2016 19:58
[2016-04-19] VITALS (12 sets, daily range): BP systolic 119–156; BP diastolic 56–77; PULSE 70–97; RESP 20–25; TEMP 98.5–101.8; O2SAT 97–100
[2016-04-19] MEDS: DEXMEDETOMIDINE INJ 50 ML IV SCH ×3 (02:56→08:27)
--- NOTE | 2016-04-19 03:59 | RADRPT ---
EXAM DATE/TIME: 04/19/2016 02:43 [facility] COMPARISON: CHEST SINGLE AP, April 17, 2016, 3:48. INDICATIONS : Evaluate for respiratory failure. MEDICAL HISTORY : Hypertension. Cardiovascular disease. Myocardial infarction. AFIB SURGICAL HISTORY : Cardiac stents in 2008, cardiac ablation ENCOUNTER: Subsequent ACUITY: 1 week PAIN SCORE: Non-responsive. LOCATION: chest FINDINGS: Left base consolidation and small effusion are modestly worse in the interim. No pneumothorax seen. M ild cardiomegaly is stable. Endotracheal tube tip is about 3.5 cm above the smith, not significantly changed. There is a nasogas tric tube coursing into the stomach. CONCLUSION: Consolidation and small effusion of the left base are slightly worse. Rick Troncoso MD on April 19, 2016 at 3:57 Board Certified Radiologist. This report was verified electronically.
[2016-04-19] MEDS: CHLORHEXIDINE GLUCONATE 2 % 1 PACK (2 CLOTHS) TOP SCH (04:00)
[2016-04-19 04:35] LABS: AUTOMATED NEUTROPHIL # 8.1 TH/MM3 (1.8-7.7); BASOPHIL # 0.1 TH/MM3 (0-0.2); BASOPHIL % 0.9 % (0.0-2.0); EOSINOPHIL # 0.2 TH/MM3 (0-0.4); EOSINOPHIL % 1.6 % (0.0-4.0); HEMATOCRIT 43.3 % (39.0-51.0); HEMO FLAGS DIFF FINAL; LYMPH % 7.2 % (9.0-44.0); LYMPHOCYTE # 0.7 TH/MM3 (1.0-4.8); MEAN CELL VOLUME 89.6 FL (80.0-100.0); MEAN CORPUSCULAR HEMOGLOBIN 30.9 PG (27.0-34.0); MEAN CORPUSCULAR HGB CONC 34.5 % (32.0-36.0); MONO % 9.4 % (0.0-8.0); NEUT % 80.9 % (16.0-70.0); PLATELET COUNT 220 TH/MM3 (150-450); RED BLOOD COUNT 4.84 MIL/MM3 (4.50-5.90); RED CELL DISTRIBUTION WIDTH 14.4 % (11.6-17.2)
[2016-04-19 04:42] LABS: INTERNATIONAL NORMALIZED RATIO 1.2 RATIO; PROTHROMBIN TIME - PATIENT 13.6 SEC (9.8-11.6)
[2016-04-19] MEDS: PIPERACIL-TAZO 3.375 GM PREMIX 50 ML IV SCH (04:52)
[2016-04-19 05:07] LABS: BLOOD GAS BASE EXCESS 3.2 mmol/L (-2-2); BLOOD GAS CARBOXYHEMOGLOBIN 1.7 % (0-4); BLOOD GAS HCO3 27 mmol/L (22-26); BLOOD GAS O2 HGB SATURATION 95 % (90-100); BLOOD GAS OXYGEN CONTENT 20.3 Vol % (12.0-20.0); BLOOD GAS PCO2 38 mmHg (38-42); BLOOD GAS PO2 94 mmHg (61-120); BLOOD GAS TOTAL HGB 15.2 G/DL (12.0-16.0); CRITICAL VALUE NO; OXYGEN DEVICE VENTILATOR; TEMP CORR TO 98.6
[2016-04-19 05:08] LABS: DRAW SITE RT RADIAL; FIO2 45 %; NUMBER OF ARTERIAL PUNCTURES 1; STAT NO; ULNAR PULSE PRESENT; VENT SETTINGS PRVC/AC
[2016-04-19 05:11] LABS: ALKALINE PHOSPHATASE 56 U/L (45-117); ALT (GPT) 62 U/L (12-78); ANION GAP 8 MEQ/L (5-15); AST (GOT) 42 U/L (15-37); BICARBONATE 29.4 MEQ/L (21.0-32.0); BLOOD UREA NITROGEN 24 MG/DL (7-18); CHLORIDE 111 MEQ/L (98-107); GLOMERULAR FILTRATION RATE 63 ML/MIN (>89); MAGNESIUM 2.7 MG/DL (1.5-2.5); POTASSIUM 3.7 MEQ/L (3.5-5.1); SODIUM (NA) 148 MEQ/L (136-145); TOTAL BILIRUBIN ADULT 1.3 MG/DL (0.2-1.0)
[2016-04-19] MEDS ORDERED: MORPHINE SULFATE 4 MG/ML INJ IV PUSH PRN (10:00)
[2016-04-19] MEDS ORDERED: MORPHINE SULFATE 8 MG/ML INJ IV PUSH ONE ×2 (10:00→10:45)
[2016-04-19] MEDS ORDERED: LORazepam 2 MG/ML VIAL IV PUSH ONE (10:00)
--- NOTE | 2016-04-19 10:31 | HHI.HCPN ---
Reason for visit a. To assist with evaluation and management of symptoms including: shortness of breath and restlessness. b. To assist medical decision maker(s) with: better understanding of current medical conditions; weighing benefits/burdens of medical treatment options; making medical treatment decisions. Subjective/Interval History Palliative care f/u for clarifications of goals of care and symptom management. Patient seen in ICU, remains intubated on mechanical ventilation. Family at beside. Plan to continue CPAP trial today, failed yesterday secondary to tachypnea. Patient remains sedated on Precedex. CXR today showing worsening consolidation and small effusion on the left lung base. . Family/friend interactions Met with patient's , daughter Brinda and sons Luis Fernando and Carloz. Medical update provided. Family with a very good understanding of patient's critical condition and risks for further decline and . Family verbalized that patient would be against trach and PEG gven his poor prognosis for a meaningful neurological recovery. Family verbalized that after our meeting yesterday and speaking with Dr. Benavides this morning, family has elected to transition patient to comfort-directed care/withdrawal of life support. Spiritual services offered , spoke with Jose who will visit family. Exhibits B and C have been signed. Ongoing emotional support provided to family. . Advance Directives Living Will: Copy in medical record Health Care Surrogate: Copy in medical record Durable Power of President Ceo & Founder: Completed, but not made available Advance Directive Specifics Date completed: 02/13/2009. . Health Care Surrogate(s): Healthcare surrogate listed as patient's Martha Chin. Alternate healthcare surrogate listed as Milady Salinas -daughter. . Documented care wishes: Living will completed. Known wishes to include his desire not to have his dying prolonged artificially under the circumstances of the terminal condition, and end stage condition, or a persistent vegetative state. . Significant change in goals: NO CODE. Transition patient to comfort-directed care/withdrawal of life support given his very poor prognosis for a meaningful neurological recovery and worsening clinical state. . Objective Vital Signs Date Time Temp Pulse Resp B/P Pulse Ox O2 Delivery O2 Flow Rate FiO2 04/19/16 09:25 97 45 04/19/16 06:00 75 04/19/16 04:08 99 45 04/19/16 04:00 79 04/19/16 04:00 45 04/19/16 04:00 99.3 70 25 131/60 100 04/19/16 02:00 71 04/19/16 01:13 98 45 04/19/16 00:00 45 04/19/16 00:00 98.5 70 20 119/56 97 04/19/16 00:00 85 04/18/16 22:00 69 04/18/16 20:29 96 45 04/18/16 20:00 76 04/18/16 20:00 100.3 76 14 135/60 97 04/18/16 20:00 45 04/18/16 18:00 75 04/18/16 16:09 98 45 04/18/16 16:00 100.5 75 19 117/59 96 04/18/16 16:00 75 04/18/16 16:00 45 04/18/16 14:00 77 04/18/16 12:02 99 45 04/18/16 12:00 45 04/18/16 12:00 94 04/18/16 12:00 100.6 94 36 149/68 96 04/18/16 11:55 45 04/18/16 11:51 93 45 04/18/16 11:03 24 Intake & Output 04/19/16 04/19/16 07:00 19:00 Intake Total 1400 ml Output Total 750 ml Balance 650 ml IV Total 570 ml Tube Feeding 550 ml Tube Irrigant 80 ml Other 200 ml Output Urine Total 750 ml Stool Total 0 ml Physical Exam CONSTITUTIONAL/GENERAL: This is an adequately nourished patient, in no apparent distress. Intubated on mechanical ventilation. TUBES/LINES/DRAINS: ETT, OG, SCD's, Lira cath, soft restraints. SKIN: No jaundice, rashes, or lesions. No wounds seen anteriorly. Skin temperature appropriate. Not diaphoretic. HEAD: Atraumatic. Normocephalic. EYES: Pupils equal and round and reactive. No scleral icterus. No injection or drainage. ENT: Unable to assess his hearing secondary to clinical condition. Nose without bleeding or purulent drainage. Unable to assess throat due to ETT/OG. NECK: Trachea midline. Supple. CARDIOVASCULAR: Irregular rate and rhythm. No JVD. Peripheral pulses symmetric.+ 2 edema to bilateral upper extremities. RESPIRATORY/CHEST: Symmetric, unlabored respirations. Coarse to auscultation. Breath sounds equal bilaterally. Intubated on mechanical ventilation. GASTROINTESTINAL: Abdomen large, round, soft. Unable to appreciate hepato- splenomegaly secondary to body habitus. Bowel sounds present. Ongoing tube feeding via OG tube. GENITOURINARY: Without palpable bladder distension. Lira catheter in place. MUSCULOSKELETAL: Extremities without clubbing, cyanosis, or edema. No mottling or clubbing. NEUROLOGICAL: Sedated, intubated on mechanical ventilation. Not opening eyes to voice or tactile stimuli. PSYCHIATRIC: Unable to assess secondary to clinical condition. Appears calm. . Diagnostic Tests Laboratory Laboratory Tests Test 04/17/16 04/18/16 04/18/16 04/19/16 05:18 04:40 22:31 04:14 White Blood Count 7.4 TH/MM3 10.0 TH/MM3 (4.0-11.0) (4.0-11.0) Red Blood Count 4.59 MIL/MM3 4.84 MIL/MM3 (4.50-5.90) (4.50-5.90) Hemoglobin 14.0 GM/DL 14.9 GM/DL (13.0-17.0) (13.0-17.0) Hematocrit 40.8 % 43.3 % (39.0-51.0) (39.0-51.0) Mean Corpuscular Volume 88.7 FL 89.6 FL (80.0-100.0) (80.0-100.0) Mean Corpuscular Hemoglobin 30.5 PG 30.9 PG (27.0-34.0) (27.0-34.0) Mean Corpuscular Hemoglobin 34.4 % 34.5 % Concent (32.0-36.0) (32.0-36.0) Red Cell Distribution Width 14.1 % 14.4 % (11.6-17.2) (11.6-17.2) Platelet Count 175 TH/MM3 220 TH/MM3 (150-450) (150-450) Mean Platelet Volume 9.1 FL 9.6 FL (7.0-11.0) (7.0-11.0) Neutrophils (%) (Auto) 80.3 % 80.9 % (16.0-70.0) (16.0-70.0) Lymphocytes (%) (Auto) 5.9 % 7.2 % (9.0-44.0) (9.0-44.0) Monocytes (%) (Auto) 12.2 % 9.4 % (0.0-8.0) (0.0-8.0) Eosinophils (%) (Auto) 1.2 % (0.0-4.0) 1.6 % (0.0-4.0) Basophils (%) (Auto) 0.4 % (0.0-2.0) 0.9 % (0.0-2.0) Neutrophils # (Auto) 6.0 TH/MM3 8.1 TH/MM3 (1.8-7.7) (1.8-7.7) Lymphocytes # (Auto) 0.4 TH/MM3 0.7 TH/MM3 (1.0-4.8) (1.0-4.8) Monocytes # (Auto) 0.9 TH/MM3 0.9 TH/MM3 (0-0.9) (0-0.9) Eosinophils # (Auto) 0.1 TH/MM3 0.2 TH/MM3 (0-0.4) (0-0.4) Basophils # (Auto) 0.0 TH/MM3 0.1 TH/MM3 (0-0.2) (0-0.2) CBC Comment DIFF FINAL DIFF FINAL Differential Comment Prothrombin Time 16.7 SEC 14.8 SEC 13.6 SEC (9.8-11.6) (9.8-11.6) (9.8-11.6) Prothromb Time International 1.5 RATIO 1.3 RATIO 1.2 RATIO Ratio Sodium Level 144 MEQ/L 148 MEQ/L (136-145) (136-145) Potassium Level 3.5 MEQ/L 3.7 MEQ/L (3.5-5.1) (3.5-5.1) Chloride Level 107 MEQ/L 111 MEQ/L (98-107) (98-107) Carbon Dioxide Level 28.6 MEQ/L 29.4 MEQ/L (21.0-32.0) (21.0-32.0) Anion Gap 8 MEQ/L (5-15) 8 MEQ/L (5-15) Blood Urea Nitrogen 22 MG/DL (7-18) 24 MG/DL (7-18) Creatinine 1.14 MG/DL 1.12 MG/DL (0.60-1.30) (0.60-1.30) Estimat Glomerular Filtration 61 ML/MIN (>89) 63 ML/MIN (>89) Rate Random Glucose 140 MG/DL 141 MG/DL (74-106) (74-106) Calcium Level 8.7 MG/DL 8.6 MG/DL (8.5-10.1) (8.5-10.1) Phosphorus Level 2.0 MG/DL 3.1 MG/DL 3.0 MG/DL (2.5-4.9) (2.5-4.9) (2.5-4.9) Magnesium Level 2.6 MG/DL 2.7 MG/DL (1.5-2.5) (1.5-2.5) Total Bilirubin 1.3 MG/DL (0.2-1.0) Aspartate Amino Transf 42 U/L (15-37) (AST/SGOT) Alanine Aminotransferase 62 U/L (12-78) (ALT/SGPT) Alkaline Phosphatase 56 U/L (45-117) Total Protein 7.0 GM/DL (6.4-8.2) Albumin 2.6 GM/DL (3.4-5.0) Test 04/19/16 04:56 Blood Gas Puncture Site RT RADIAL Blood Gas Patient Temperature 98.6 Blood Gas HCO3 27 mmol/L (22-26) Blood Gas Base Excess 3.2 mmol/L (-2-2) Blood Gas Oxygen Saturation 95 % (90-100) Arterial Blood pH 7.47 (7.380-7.420) Arterial Blood Partial 38 mmHg (38-42) Pressure CO2 Arterial Blood Partial 94 mmHg Pressure O2 (61-120) Arterial Blood Oxygen Content 20.3 Vol % (12.0-20.0) Arterial Blood 1.7 % (0-4) Carboxyhemoglobin Arterial Blood Methemoglobin 1.0 % (0-2) Blood Gas Hemoglobin 15.2 G/DL (12.0-16.0) Oxygen Delivery Device VENTILATOR Blood Gas Ventilator Setting PRVC/AC Blood Gas Inspired Oxygen 45 % Result Diagram: 04/19/16 0414 04/19/16 0414 Imaging Last Impressions Chest X-Ray 04/19/16 0600 Signed Impressions: Service Date/Time: Tuesday, April 19, 2016 02:43 - CONCLUSION: Consolidation and small effusion of the left base are slightly worse. Rick Troncoso MD Abdomen X-Ray 04/15/16 0000 Signed Impressions: Service Date/Time: Saturday, April 16, 2016 00:06 - CONCLUSION: No acute disease. Néstor Marquez MD Brain MRI 04/14/16 0000 Signed Impressions: Service Date/Time: Thursday, April 14, 2016 22:05 - CONCLUSION: Minimal white matter ischemic changes. No significant abnormality. Bertin Mederos MD Head CT 04/10/16 0000 Signed Impressions: Service Date/Time: Sunday, April 10, 2016 15:15 - CONCLUSION: Stable appearance of the brain without evidence of acute infarct, hemorrhage, mass or edema. Stable mild ventricular enlargement.. Aman Galarza MD Procedures * 04/14/16 -intubation. * 04/14/16 -extubation. * 04/13/16 -right femoral central line removal. * 04/10/16 -right femoral central line placement. * 04/10/16 -intubation. . Assessment and Plan Disease Oriented Problem List: (1) Acute respiratory failure (2) Cardiac arrest (3) Ventricular fibrillation (4) Probable anoxic brain injury Symptom Scale: (1) Shortness of breath 0-10 Scale: Unable to quantify Comment: Remains intubated on mechanical ventilation. Ongoing attempts at CPAP trial. (2) Debility 0-10 Scale: Unable to quantify Comment: Secondary to acute illness. (3) Restlessness Comment: Secondary to acute illness, and mechanical intubation. Currently on Precedex drip. Pertinent Non-Medical Issues Psychosocial: . Retired. has 3 children. Spiritual: No islam affiliations. Legal: Living well and healthcare surrogate completed. Ethical issues impacting care: No ethical issues have been identified. . Important Contacts Martha Chin [phone]. Son Carloz [phone]. Prognosis Mr. Chin is an 80-year-old male with a medical history significant for atrial fibrillation, diastolic heart failure and prior AR who presented to the ED on 04/10/16 via EMS status post witnessed cardiac arrest. Patient remains status induce hypothermia protocol, questionable anoxic brain injury. Patient overall prognosis is guarded. . Code Status: No Code Plan * CODE STATUS: NO CODE. * Patient incapacitated for medical decision-making secondary to clinical condition, unclear if he will regain. Healthcare surrogate paperwork documents provided by family, patient remained his Martha Long as HCS. * GOALS OF CARE: 04/19/16, NO CODE. Transition patient to comfort-directed care/ withdrawal of life support given his worsening clinical status and very poor prognosis for a meaningful neurological recovery. * Exhibits B & C signed. * Spiritual services offered and accepted by family. Lawyer Real Estateangel Garcia to f/u. * Anticipatory guidance provided to family re s/s of EOL. * SYMPTOMS: == Shortness of breath: Remains intubated on mechanical ventilation. == Restlessness: Secondary to acute illness and mechanical ventilation, remains on Precedex drip. Adding withdrawal medications at this time. * Case discussed with Dr. Benavides and bedside RN. * Palliative care contact information has been provided to family. * All questions have been answered in great detail. * Ongoing emotional support and active listening provided to family. . Time Spent Total Floor Time (mins): 45 (Total time to include review medical records, physical exam, bedside family conversation, and case discussion with Dr. Benavides, chaplain Garcia and bedside RN.) Face to Face Time (mins): 32 >50% Counseling/Coord of Care: Yes Attestation To help prompt me to consider important information that might be impacting today's encounter and assessment, information from prior notes written by myself or my colleagues may have been "brought forward" into today's note. My signature on this note, however, is an attestation that I personally performed the exam, history, and/or decision-making noted today, and, unless otherwise indicated, the interactions with patient, family, and staff as well as the review of records all occurred today. I also attest that the listed assessment and stated plan reflect my best clinical judgment today based on the combination of historical information, prior notes, and today's exam/ interactions. When time spent is documented, it refers only to time spent today by the signer, or if indicated, combined time spent today by collaborating physician/nurse practitioner. Letty De Santiago Apr 19, 2016 10:31
[2016-04-19] MEDS: fentaNYL DRIP 250 ML IV SCH (10:42)
[2016-04-19] MEDS ORDERED: HYOSCYAMINE 0.5 MG/ML AMP IV ONE (10:45)
[2016-04-19] MEDS ORDERED: LORazepam 2 MG/ML VIAL IV ONE ×2 (10:45→11:15)
[2016-04-19] MEDS ORDERED: HYOSCYAMINE 0.5 MG/ML AMP IV PRN (11:15)
[2016-04-19] MEDS ORDERED: MORPHINE SULFATE 8 MG/ML INJ IV PUSH PRN (11:15)
[2016-04-19] MEDS ORDERED: MORPHINE SULFATE 4 MG/ML INJ IV ONE (11:15)
[2016-04-19] MEDS ORDERED: MORPHINE SULFATE 4 MG/ML INJ IV PRN (11:15)
[2016-04-19] MEDS ORDERED: LORazepam 2 MG/ML VIAL IVS PRN (11:15)
[2016-04-19] MEDS ORDERED: BISACODYL 10 MG SUPP PR PRN (11:15)
[2016-04-19] MEDS ORDERED: LORazepam 2 MG/ML VIAL IV PRN ×2 (11:15)
[2016-04-19] MEDS ORDERED: FUROSEMIDE 20 MG/2 ML VIAL IV PRN (11:15)
[2016-04-19] MEDS ORDERED: ACETAMINOPHEN 650 MG SUPP PR PRN (11:15)
[2016-04-19] MEDS ORDERED: MORPHINE SULFATE 4 MG/ML INJ IV SCH (12:00)
[2016-04-19] MEDS ORDERED: LORazepam 2 MG/ML VIAL IV SCH (12:00)
--- NOTE | 2016-04-19 13:25 | HHI.CCPN ---
Subjective Remarks/Hospital Course Patient is an 80 year-old male with past medical history significant for coronary artery disease status post stents in 2008, chronic atrial fibrillation/ flutter status post ablation by Dr. Murrieta in 2012, hypertension, diastolic heart failure, history of aortic and tricuspid regurgitation. He was brought in to the [place] ER by EMS status post CODE BLUE, and STEMI alert called on the patient on scene. He was at [facility] with his about to order food when he suddenly appeared ill, mumbled some words and collapsed. EMS arrived in less than 5 minutes and found patient to be in ventricular fibrillation, he was immediately defibrillated and patient went into PEA. ACLS protocol was followed and it took approximately 20 minutes from the beginning of CPR to gain spontaneous circulation. Patient remained comatose after ROSC and was intubated with LMA on scene. Endotracheally intubated in ER. Case was discussed with Dr. Capellan he did not think patient meets STEMI criteria. EKG showed incomplete left bundle branch block and frequent PVCs. Cardiac enzymes are pending at this time. I was contacted for admission and consideration of induced hypothermia. I evaluated the patient in the ED. Patient had received 20 mg of IV etomidate and 100 mg of succinylcholine at 2:01 PM, I examined him at 2:50 PM approximately 45 minutes after these medications were given. Patient is spontaneously breathing above the vent even though comatose. Pupils are 5 mm briskly reactive bilaterally. Patient has no purposeful movements but he does slightly withdraw bilateral upper extremities to central pain. In discussion with Dr. capellan and family (patient's and son), decision was made to place patient on induced hypothermia for neuro protection after cardiac arrest. Patient was emergently moved to the CAT scan, CT of the head was found to be negative, he was then moved to the ICU and I placed the right femoral heat exchange catheter. Patient will be emergently started on induced hypothermia protocol SUBJ 04/11/16: Initiated on induced hypothermia yesterday, achieved target temperature at 11 PM, rewarming restarted 11 PM today. Patient currently on 2 mics per minute of Levophed for hypotension, dopamine was weaned off but restarted low-dose already his urine output. Neuromuscular paralysis limits neuro exam, pupils remain reactive. Troponin peak of 1.35, lactic acid was 3.7. INR 3.2 04/12/16: Rewarming completed at 7 AM today. Patient examined off sedation. Attempts to open eyes off propofol, did not track. No spontaneous extremity movements slightly withdraws upper extremity to central pain. Will check EEG 04/13/16: Remains intubated sedated with propofol. Opens eyes to verbal commands moves all extremities. Slowly improving neuro exam. Failed C Pap trial secondary to tachypnea. Spiking fever up to 101 04/14/16: Precedex held 5 minutes before exam. Patient appears to be waking up more, tracking. CXR continues to show pulmonary edema. Moves all extremities not following commands. Additional 2 mg Bumex given followed by Bumex 1 mg every 12 hours 04/15 Patient was extubated then reintubated yesterday for resp distress. Sedated with Diprivan and fentanyl. Afebrile. MRI brain last night showed minimal white matter ischemic changes. No significant abnormality. 04/16 Patient remains sedated with Fentanyl and intubated. Off Diprivan. TF held overnight for high residuals. Off Diprivan drip. 04/17 no acute issues overnight, patient remains neurologically altered 04/18 remains hemodynamically stable overnight, not neurologically appropriate 04/19 I have discussed neurological outcome potential with all family members they have decided to transfer patient to hospice/comfort care only Objective Vital Signs Date Time Temp Pulse Resp B/P Pulse Ox O2 Delivery O2 Flow Rate FiO2 04/19/16 10:00 80 04/19/16 09:25 97 45 04/19/16 08:00 101.8 24 156/77 Intake and Output 04/18/16 04/18/16 04/19/16 08:00 16:00 00:00 Intake Total 690 ml 800 ml Output Total 575 ml 400 ml Balance 115 ml 400 ml Result Diagram: 04/19/16 0414 04/19/16 0414 Other Results Laboratory Tests Test 04/19/16 04:56 Blood Gas Puncture Site RT RADIAL Blood Gas Patient Temperature 98.6 Blood Gas HCO3 27 mmol/L (22-26) Blood Gas Base Excess 3.2 mmol/L (-2-2) Blood Gas Oxygen Saturation 95 % (90-100) Arterial Blood pH 7.47 (7.380-7.420) Arterial Blood Partial 38 mmHg (38-42) Pressure CO2 Arterial Blood Partial 94 mmHg Pressure O2 (61-120) Arterial Blood Oxygen Content 20.3 Vol % (12.0-20.0) Arterial Blood 1.7 % (0-4) Carboxyhemoglobin Arterial Blood Methemoglobin 1.0 % (0-2) Blood Gas Hemoglobin 15.2 G/DL (12.0-16.0) Oxygen Delivery Device VENTILATOR Blood Gas Ventilator Setting PRVC/AC Blood Gas Inspired Oxygen 45 % Imaging Last Impressions Abdomen X-Ray 04/15/16 0000 Signed Impressions: Service Date/Time: Saturday, April 16, 2016 00:06 - CONCLUSION: No acute disease. Néstor Marquez MD Chest X-Ray 04/14/16 0600 Signed Impressions: Service Date/Time: Thursday, April 14, 2016 02:47 - CONCLUSION: Bilateral perihilar and lower lung zone interstitial opacity remains present and could represent pulmonary edema. The small left pleural effusion documented on the prior study is not seen today. Rick Bejarano MD Brain MRI 04/14/16 0000 Signed Impressions: Service Date/Time: Thursday, April 14, 2016 22:05 - CONCLUSION: Minimal white matter ischemic changes. No significant abnormality. Bertin Mederos MD Head CT 04/10/16 0000 Signed Impressions: Service Date/Time: Sunday, April 10, 2016 15:15 - CONCLUSION: Stable appearance of the brain without evidence of acute infarct, hemorrhage, mass or edema. Stable mild ventricular enlargement.. Aman Galarza MD Objective Remarks GENERAL: Patient is 80 yo intubated and sedated SKIN: Warm and dry. HEAD: Normocephalic. EYES: No scleral icterus. No injection or drainage. NECK: Supple, trachea midline. No JVD or lymphadenopathy. CARDIOVASCULAR: Regular rate and rhythm without murmurs, gallops, or rubs. RESPIRATORY: Breath sounds equal bilaterally. No accessory muscle use. GASTROINTESTINAL: Abdomen soft, non-tender, nondistended. MUSCULOSKELETAL: No cyanosis, or edema. Neuro: sedated Date of Insertion: Apr 10, 2016 Side: Right Location: Femoral A/P Assessment and Plan I have discussed prognosis with all family members daughter's son and . We have discussed possible anoxic event and neurological recovery prognosis as well as other comorbidities such as severe coronary artery disease and ischemic cardiomyopathy. The patient has a living will and he would never want live prolonged life on machines without a good quality of life. All family members requested to proceed with palliative care and comfort care only possible transfer to hospice. I agree this is the most human decision at the current situation and I will honor the family wishes as well as patient's living will. We will proceed with extubation and comfort care only Woody Benavides MD Apr 19, 2016 13:25
--- NOTE | 2016-05-08 03:43 | HHI.DS ---
Discharge Summary Admission Date Apr 10, 2016 at 14:25 Admitting Diagnosis status post CODE BLUE (1) Ventricular fibrillation Diagnosis: Principal (2) Cardiac arrest Diagnosis: Principal (3) Acute respiratory failure Diagnosis: Principal (4) Probable anoxic brain injury Diagnosis: Principal (5) Atrial fibrillation with rapid ventricular response Diagnosis: Principal (6) Aspiration pneumonitis Diagnosis: Principal (7) Coagulopathy from Coumadin Diagnosis: Principal Brief History Patient is an 80 year-old male with past medical history significant for coronary artery disease status post stents in 2008, chronic atrial fibrillation/ flutter status post ablation by Dr. Murrieta in 2012, hypertension, diastolic heart failure, history of aortic and tricuspid regurgitation. He was brought in to the [facility] ER by EMS status post CODE BLUE, and STEMI alert called on the patient on scene. He was at [employer] with his about to order food when he suddenly appeared ill, mumbled some words and collapsed. EMS arrived in less than 5 minutes and found patient to be in ventricular fibrillation, he was immediately defibrillated and patient went into PEA. ACLS protocol was followed and it took approximately 20 minutes from the beginning of CPR to gain spontaneous circulation. Patient remained comatose after ROSC and was intubated with LMA on scene. Endotracheally intubated in ER. Case was discussed with Dr. Capellan he did not think patient meets STEMI criteria. EKG showed incomplete left bundle branch block and frequent PVCs. Cardiac enzymes are pending at this time. I was contacted for admission and consideration of induced hypothermia. I evaluated the patient in the ED. Patient had received 20 mg of IV etomidate and 100 mg of succinylcholine at 2:01 PM, I examined him at 2:50 PM approximately 45 minutes after these medications were given. Patient is spontaneously breathing above the vent even though comatose. Pupils are 5 mm briskly reactive bilaterally. Patient has no purposeful movements but he does slightly withdraw bilateral upper extremities to central pain. In discussion with Dr. capellan and family (patient's and son), decision was made to place patient on induced hypothermia for neuro protection after cardiac arrest. Patient was emergently moved to the CAT scan, CT of the head was found to be negative, he was then moved to the ICU and I placed the right femoral heat exchange catheter. Patient will be emergently started on induced hypothermia protocol PE at Discharge GENERAL: Critically ill elderly man unresponsive SKIN: Warm and dry. HEAD: Normocephalic. EYES: No scleral icterus. No injection or drainage. NECK: Supple, trachea midline. No JVD or lymphadenopathy. CARDIOVASCULAR: Regular rate and rhythm without murmurs, gallops, or rubs. RESPIRATORY: Breath sounds equal bilaterally. No accessory muscle use. GASTROINTESTINAL: Abdomen soft, non-tender, nondistended. MUSCULOSKELETAL: No cyanosis, or edema. BACK: Nontender without obvious deformity. No CVA tenderness. EXTREMITIES: No clubbing cyanosis or edema Hospital Course 04/11/16: Initiated on induced hypothermia yesterday, achieved target temperature at 11 PM, rewarming restarted 11 PM today. Patient currently on 2 mics per minute of Levophed for hypotension, dopamine was weaned off but restarted low- dose already his urine output. Neuromuscular paralysis limits neuro exam, pupils remain reactive. Troponin peak of 1.35, lactic acid was 3.7. INR 3.2 04/12/16: Rewarming completed at 7 AM today. Patient examined off sedation. Attempts to open eyes off propofol, did not track. No spontaneous extremity movements slightly withdraws upper extremity to central pain. Will check EEG 04/13/16: Remains intubated sedated with propofol. Opens eyes to verbal commands moves all extremities. Slowly improving neuro exam. Failed C Pap trial secondary to tachypnea. Spiking fever up to 101 04/14/16: Precedex held 5 minutes before exam. Patient appears to be waking up more, tracking. CXR continues to show pulmonary edema. Moves all extremities not following commands. Additional 2 mg Bumex given followed by Bumex 1 mg every 12 hours 04/15 Patient was extubated then reintubated yesterday for resp distress. Sedated with Diprivan and fentanyl. Afebrile. MRI brain last night showed minimal white matter ischemic changes. No significant abnormality. 04/16 Patient remains sedated with Fentanyl and intubated. Off Diprivan. TF held overnight for high residuals. Off Diprivan drip. 04/17 no acute issues overnight, patient remains neurologically altered 04/18 remains hemodynamically stable overnight, not neurologically appropriate 04/19 I have discussed neurological outcome potential with all family members they have decided to transfer patient to hospice/comfort care only Pt Condition on Discharge: Fair Discharge Disposition: Hospice/Med Facility Discharge Instructions DIET: Follow Instructions for: As Tolerated, No Restrictions Activities you can perform: Continue Bedrest Woody Benavides MD May 08, 2016 03:43
--- NOTE | 2016-08-21 23:47 | HHI.DS ---
Summary Note Date of : Apr 19, 2016 Time Of : 1455 Admission Date Apr 10, 2016 at 14:25 Admitting Diagnosis status post CODE BLUE Diagnosis at Time of : (1) Ventricular fibrillation ICD Code: I49.01 Diagnosis: Principal (2) Cardiac arrest ICD Code: I46.9 Diagnosis: Principal (3) Acute respiratory failure ICD Code: J96.00 Diagnosis: Principal (4) Probable anoxic brain injury Diagnosis: Principal (5) Atrial fibrillation with rapid ventricular response ICD Code: I48.91 Diagnosis: Principal (6) Aspiration pneumonitis ICD Code: J69.0 Diagnosis: Principal (7) Coagulopathy from Coumadin Diagnosis: Principal Brief History Patient is an 80 year-old male with past medical history significant for coronary artery disease status post stents in 2008, chronic atrial fibrillation/ flutter status post ablation by Dr. Murrieta in 2012, hypertension, diastolic heart failure, history of aortic and tricuspid regurgitation. He was brought in to the [facility] ER by EMS status post CODE BLUE, and STEMI alert called on the patient on scene. He was at [id number] with his about to order food when he suddenly appeared ill, mumbled some words and collapsed. EMS arrived in less than 5 minutes and found patient to be in ventricular fibrillation, he was immediately defibrillated and patient went into PEA. ACLS protocol was followed and it took approximately 20 minutes from the beginning of CPR to gain spontaneous circulation. Patient remained comatose after ROSC and was intubated with LMA on scene. Endotracheally intubated in ER. Case was discussed with Dr. Capellan he did not think patient meets STEMI criteria. EKG showed incomplete left bundle branch block and frequent PVCs. Cardiac enzymes are pending at this time. I was contacted for admission and consideration of induced hypothermia I evaluated the patient in the ED. Patient had received 20 mg of IV etomidate and 100 mg of succinylcholine at 2:01 PM, I examined him at 2:50 PM approximately 45 minutes after these medications were given. Patient is spontaneously breathing above the vent even though comatose. Pupils are 5 mm briskly reactive bilaterally. Patient has no purposeful movements but he does slightly withdraw bilateral upper extremities to central pain. In discussion with Dr. capellan and family (patient's and son), decision was made to place patient on induced hypothermia for neuro protection after cardiac arrest. Patient was emergently moved to the CAT scan, CT of the head was found to be negative, he was then moved to the ICU and I placed the right femoral heat exchange catheter. Patient will be emergently started on induced hypothermia protocol Imaging Last Impressions Abdomen X-Ray 04/15/16 0000 Signed Impressions: Service Date/Time: Saturday, April 16, 2016 00:06 - CONCLUSION: No acute disease. Néstor Marquez MD Chest X-Ray 04/14/16 0600 Signed Impressions: Service Date/Time: Thursday, April 14, 2016 02:47 - CONCLUSION: Bilateral perihilar and lower lung zone interstitial opacity remains present and could represent pulmonary edema. The small left pleural effusion documented on the prior study is not seen today. Rick Bejarano MD Brain MRI 04/14/16 0000 Signed Impressions: Service Date/Time: Thursday, April 14, 2016 22:05 - CONCLUSION: Minimal white matter ischemic changes. No significant abnormality. Bertin Mederos MD Head CT 04/10/16 0000 Signed Impressions: Service Date/Time: Sunday, April 10, 2016 15:15 - CONCLUSION: Stable appearance of the brain without evidence of acute infarct, hemorrhage, mass or edema. Stable mild ventricular enlargement.. Aman Galarza MD Hospital Course 04/11/16: Initiated on induced hypothermia yesterday, achieved target temperature at 11 PM, rewarming restarted 11 PM today. Patient currently on 2 mics per minute of Levophed for hypotension, dopamine was weaned off but restarted low- dose already his urine output. Neuromuscular paralysis limits neuro exam, pupils remain reactive. Troponin peak of 1.35, lactic acid was 3.7. INR 3.2 04/12/16: Rewarming completed at 7 AM today. Patient examined off sedation. Attempts to open eyes off propofol, did not track. No spontaneous extremity movements slightly withdraws upper extremity to central pain. Will check EEG 04/13/16: Remains intubated sedated with propofol. Opens eyes to verbal commands moves all extremities. Slowly improving neuro exam. Failed C Pap trial secondary to tachypnea. Spiking fever up to 101 04/14/16: Precedex held 5 minutes before exam. Patient appears to be waking up more, tracking. CXR continues to show pulmonary edema. Moves all extremities not following commands. Additional 2 mg Bumex given followed by Bumex 1 mg every 12 hours 04/15 Patient was extubated then reintubated yesterday for resp distress. Sedated with Diprivan and fentanyl. Afebrile. MRI brain last night showed minimal white matter ischemic changes. No significant abnormality. 04/16 Patient remains sedated with Fentanyl and intubated. Off Diprivan. TF held overnight for high residuals. Off Diprivan drip. 04/17 no acute issues overnight, patient remains neurologically altered 04/18 remains hemodynamically stable overnight, not neurologically appropriate 04/19 I have discussed neurological outcome potential with all family members they have decided to transfer patient to hospice/comfort care only With the goal of comfort care measures only patient has on April 19, 2016 at 1450 5 PM Woody Benavides MD Aug 21, 2016 23:47
== END 2016-04-19 14:55 | disposition expired | DRG 207 ==
LOC: NEPC 13:45 → NEDA 14:25 → HIME 15:30
PROVIDERS: ADMIT Internal Medicine; ATTEND Internal Medicine
PROC: 5A1955Z Respiratory Ventilation, Greater than 96 Consecutive Hours (ICD-10-PCS; principal; 2016-04-10)
PROC: 6A4Z1ZZ Hypothermia, Multiple (ICD-10-PCS; 2016-04-10)
PROC: 06H033Z Insertion of Infusion Device into Inferior Vena Cava, Percutaneous Approach (ICD-10-PCS; 2016-04-10)
PROC: B54BZZA Ultrasonography of Right Lower Extremity Veins, Guidance (ICD-10-PCS; 2016-04-10)
PROC: 0BH17EZ Insertion of Endotracheal Airway into Trachea, Via Natural or Artificial Opening (ICD-10-PCS; 2016-04-10)
PROC: 0BH17EZ Insertion of Endotracheal Airway into Trachea, Via Natural or Artificial Opening (ICD-10-PCS; 2016-04-14)
DX: J96.00 Acute respiratory failure, unspecified whether with hypoxia or hypercapnia (principal); I49.01 Ventricular fibrillation; J69.0 Pneumonitis due to inhalation of food and vomit; R40.20 Unspecified coma; G93.1 Anoxic brain damage, not elsewhere classified; I95.9 Hypotension, unspecified; E87.2 Acidosis; I50.32 Chronic diastolic (congestive) heart failure; Z51.5 Encounter for palliative care; I48.2 Chronic atrial fibrillation; I25.10 Atherosclerotic heart disease of native coronary artery without angina pectoris; J45.909 Unspecified asthma, uncomplicated; I10 Essential (primary) hypertension; G47.33 Obstructive sleep apnea (adult) (pediatric); I44.7 Left bundle-branch block, unspecified; E78.5 Hyperlipidemia, unspecified; I27.2 Other secondary pulmonary hypertension; I71.2 Thoracic aortic aneurysm, without rupture; I65.23 Occlusion and stenosis of bilateral carotid arteries; I08.3 Combined rheumatic disorders of mitral, aortic and tricuspid valves; I25.2 Old myocardial infarction; I25.5 Ischemic cardiomyopathy; E16.2 Hypoglycemia, unspecified; Z66 Do not resuscitate; Z79.01 Long term (current) use of anticoagulants; Z95.5 Presence of coronary angioplasty implant and graft
CPT/HCPCS: 31500; 36430; 36556; 36600; 70450; 70551; 71010; 74000; 76937; 80048; 80053; 80307; 81001; 82310; 82550; 82552; 82805; 83605; 83735; 83880; 84100; 84484; 85025; 85610; 85730; 86403; 86850; 86900; 86901; 86927; 87040; 87070; 87077; 87086; 87186; 87205; 87641; 93005; 93306; 94002; 94003; 94640; 94664; 95819; C9113; C9399; J0171; J0330; J1265; J1630; J1650; J1980; J2060; J2175; J2250; J2270; J2543; J3010; J3370; J3480; J7030; J7050; P9017